=== PATIENT | female | born 1990 | race Asian ===

== ENCOUNTER → 2016-11-14 | Outpatient (CLI) | payer OTHER, SELFPAY ==
--- NOTE | 2016-11-14 10:51 | REP ---
Clinical: Abnormal breath sounds . Comparison: 12/27/2015 . Technique: PA and lateral. Findings: The mediastinum and cardiac silhouette are normal. The lung sargent are clear and without acute consolidation, effusion, or pneumothorax. The skeletal structures are intact and normal. Impression: 1. No acute cardiopulmonary process. Signed by Fernando Russell MD 11/14/2016 10:42 A
== END ==
LOC: M LRY 10:24
PROVIDERS: ATTEND Nurse Practitioner Family
DX: R09.89 Other specified symptoms and signs involving the circulatory and respiratory systems (principal)

== ENCOUNTER → 2016-11-14 | Outpatient (REF) | payer OTHER | LOC: M SFHCLERA 11:22 | PROVIDERS: ATTEND Nurse Practitioner Family | DX: J40 Bronchitis, not specified as acute or chronic (principal) ==

== ENCOUNTER → 2017-10-08 | Outpatient (CLI) | payer BC ==
[2017-10-08 17:41] LABS: BASO % 0.3 % (0.0-1.0); EOS # 0.3 10^3/uL (0.0-0.50); EOS % 2.6 % (0.0-3.0); HEMOGLOBIN 12.3 g/dl (12.0-16.0); IMMATURE GRANULOCYTE # 0.1 10^3/uL (0-0); IMMATURE GRANULOCYTE % 0.5 % (0-0); LYMPH # 2.8 10^3/uL (1.5-6.5); LYMPH % 21.5 % (24.0-44.0); MEAN CORPUSCULAR HEMOGLOBIN 29.2 pg (27.0-33.0); MEAN CORPUSCULAR HGB CONC 33.2 g/dl (32.0-36.5); MEAN CORPUSCULAR VOLUME 87.9 fl (80.0-96.0); MONO # 0.7 10^3/uL (0.0-0.8); MONO % 5.5 % (0.0-5.0); NEUTROPHILS # 9.1 10^3/uL (1.8-7.7); NEUTROPHILS % 69.6 % (36.0-66.0); PLATELET COUNT, AUTOMATED 305 10^3/uL (150-450); RED BLOOD COUNT 4.21 10^6/uL (4.00-5.40); RED CELL DISTRIBUTION WIDTH 13.1 % (11.5-14.5); WHITE BLOOD COUNT 13.1 10^3/uL (4.0-10.0)
[2017-10-08 18:19] LABS: AMPHETAMINES URINE REFLEX NEGATIVE (NEGATIVE); BARBITURATES URINE REFLEX NEGATIVE (NEGATIVE); BENZODIAZEPINES URINE REFLEX NEGATIVE (NEGATIVE); CANNABINOIDS URINE REFLEX NEGATIVE (NEGATIVE); COCAINE METABOLITE URINE REFLE NEGATIVE (NEGATIVE); METHADONE URINE REFLEX NEGATIVE (NEGATIVE); OPIATES URINE REFLEX NEGATIVE (NEGATIVE); PHENCYCLIDINE URINE REFLEX NEGATIVE (NEGATIVE)
[2017-10-08 19:35] LABS: CHLAMYDIA DNA AMPLIFICATION NEGATIVE (NEGATIVE); GC DNA AMPLIFICATION NEGATIVE (NEGATIVE)
[2017-10-10 10:11] LABS: HIV 1&2 SCREEN CENTAUR NEGATIVE (NEGATIVE)
[2017-10-10 13:59] LABS: HEPATITIS C VIRUS ABY INDEX 0.1 INDEX (<0.8)
[2017-10-10 14:50] LABS: RUBELLA IgG QUALITATIVE IMMUNE (IMMUNE)
[2017-10-10 14:51] LABS: HBsAg Prenatal NEGATIVE (NEGATIVE)
== END ==
LOC: M SMT 14:55
DX: Z36.89 Encounter for other specified antenatal screening (principal); Z3A.22 22 weeks gestation of pregnancy
CPT/HCPCS: 86762

== ENCOUNTER → 2017-11-20 | Outpatient (CLI) | payer BC ==
[2017-11-20 13:34] LABS: HEMATOCRIT 39.2 % (36.0-47.0); HEMOGLOBIN 12.7 g/dl (12.0-16.0); MEAN CORPUSCULAR HEMOGLOBIN 28.6 pg (27.0-33.0); MEAN CORPUSCULAR HGB CONC 32.4 g/dl (32.0-36.5); MEAN CORPUSCULAR VOLUME 88.3 fl (80.0-96.0); PLATELET COUNT, AUTOMATED 307 10^3/uL (150-450); RED BLOOD COUNT 4.44 10^6/uL (4.00-5.40); RED CELL DISTRIBUTION WIDTH 12.9 % (11.5-14.5); WHITE BLOOD COUNT 14.3 10^3/uL (4.0-10.0)
[2017-11-20 14:03] LABS: GLUCOSE CHALLENGE TEST 1 HOUR 75 MG/DL (LESS THAN 140)
== END ==
LOC: M SMT 09:30
DX: Z36.89 Encounter for other specified antenatal screening (principal); Z3A.00 Weeks of gestation of pregnancy not specified
CPT/HCPCS: 82950

== ENCOUNTER → 2018-01-23 | Outpatient (REF) | payer BC | LOC: M LAB REF 13:47 | DX: Z34.83 Encounter for supervision of other normal pregnancy, third trimester (principal) | CPT/HCPCS: 87081 ==

== ENCOUNTER 2018-02-11 15:12 | Inpatient (IN) | payer BC ==
[2018-02-11 17:53] LABS: HEMATOCRIT 41.5 % (36.0-47.0); HEMOGLOBIN 13.6 g/dl (12.0-15.5); MEAN CORPUSCULAR HEMOGLOBIN 27.2 pg (27.0-33.0); MEAN CORPUSCULAR HGB CONC 32.8 g/dl (32.0-36.5); PLATELET COUNT, AUTOMATED 365 10^3/uL (150-450); RED CELL DISTRIBUTION WIDTH 13.7 % (11.5-14.5); WHITE BLOOD COUNT 20.5 10^3/uL (4.0-10.0)
[2018-02-11] MEDS ORDERED: FENTANYL 2MCG/ML ROPIVACAINE 0.2% IN 0.9% NACL 200ML IVBAG As Ordered (20:33)
[2018-02-11] MEDS ORDERED: EPIDURAL COMMENT XX (21:45)
[2018-02-11] MEDS ORDERED: diphenhydrAMINE INJ 50MG/ML VIAL (J1200) IV (21:45)
[2018-02-11] MEDS ORDERED: ePHEDrine SULFATE 25 MG/5 ML(5MG/ML) SYRINGE IV (21:45)
[2018-02-11] MEDS ORDERED: FENTANYL/ROPIVACAINE/NACL BAG 200 ML EPIDURAL (21:45)
[2018-02-11] MEDS ORDERED: REFRIGERATOR IV KEYS XX (21:45)
[2018-02-11] MEDS ORDERED: LACTATED RINGER'S 1000 ML IV (21:45)
[2018-02-11] MEDS ORDERED: NALOXONE INJ 0.4 MG/1 ML VIAL (J2310) IV (21:45)
[2018-02-11] MEDS ORDERED: EPIDURAL/PCA KEYS XX (21:45)
[2018-02-11] MEDS ORDERED: OXYTOCIN DRIP 30 UNITS in APPROPRIATE DILUENT 1 EA IV (23:30)
[2018-02-12] MEDS: ONDANSETRON 4MG/2ML VIAL (J2405) IV (07:40)
[2018-02-12] MEDS ORDERED: LR 1,000 ML IV (11:55)
[2018-02-12] MEDS ORDERED: OXYTOCIN INJ 10 UNITS/ML VIAL (J2590) As Ordered ×2 (12:10)
[2018-02-12] MEDS ORDERED: MORPHINE PRES-FREE INJ 10 MG/10 ML VIAL (J2274) As Ordered (12:12)
[2018-02-12] MEDS ORDERED: LIDOCAINE PRES-FREE 2% 10ML AMP As Ordered ×2 (12:14→12:15)
[2018-02-12] MEDS ORDERED: EPINEPHrine INJ 1 MG/ML 1ML AMP As Ordered (12:15)
[2018-02-12] MEDS: BICITRA 30ML SOLN UDC PO (12:38)
[2018-02-12] MEDS ORDERED: PHENYLephrine HCL 500 MCG/5 ML (100MCG/ML) SYRINGE (J2370) As Ordered (13:17)
[2018-02-12] MEDS ORDERED: ONDANSETRON 4MG/2ML VIAL (J2405) As Ordered ×6 (13:18→13:50)
[2018-02-12] MEDS ORDERED: dexameTHASONE 4 MG/ML 1ML VIAL (J1100) As Ordered (13:18)
[2018-02-12] MEDS ORDERED: KETOROLAC 60 MG/2 ML VIAL (J1885) As Ordered (13:18)
[2018-02-12] MEDS ORDERED: NALBUPHINE HCL 10 MG/ML AMP (J2300) IV (13:30)
[2018-02-12] MEDS ORDERED: NALOXONE INJ 0.4 MG/1 ML VIAL (J2310) IV ×2 (13:30)
[2018-02-12] MEDS ORDERED: ONDANSETRON 4MG/2ML VIAL (J2405) IV ×3 (13:30→15:15)
[2018-02-12 13:48] LABS: CORD GAS ABE A -3.3; CORD GAS ABE V -2.9; CORD GAS HCO3 A 22.1 MEQ/L; CORD GAS HCO3 V 22.3 MEQ/L; CORD GAS O2 SAT A 74.4 %; CORD GAS O2 SAT V 74.7 %; CORD GAS PCO2 V 40.6 mmHg; CORD GAS PH A 7.349 UNITS; CORD GAS PH V 7.358 UNITS; CORD GAS PO2 A 32.2 mmHg; CORD GAS PO2 V 32.2 mmHg; CORD GAS SBC A 21.1 MEQ/L; CORD GAS SBC V 21.5 MEQ/L; CORD GAS TCO2 A 23.3 MEQ/L; CORD GAS TCO2 V 23.6 MEQ/L
[2018-02-12] MEDS: LR 1,000 ML IV ×2 (14:09→20:36)
[2018-02-12] MEDS ORDERED: MEASLES,MUMPS,RUBELLA VACCINE INJ (MMR-II) (90707) SC (14:15)
[2018-02-12] MEDS ORDERED: PERCOCET 5MG/325MG TAB PO ×2 (14:15)
[2018-02-12] MEDS ORDERED: RHOGAM 300 MCG (1500 IU) INJ (J2790) IM (14:15)
[2018-02-12] MEDS: METHYLERGONOVINE MALEATE 0.2 MG/ML VIAL (J2210) IM (14:30)
[2018-02-12] MEDS ORDERED: fentaNYL 100 MCG/2 ML INJECTION (J3010) IV (15:15)
[2018-02-12] MEDS ORDERED: diphenhydrAMINE INJ 50MG/ML VIAL (J1200) IV (15:15)
[2018-02-12] MEDS ORDERED: MEPERIDINE INJ 25 MG/ML VIAL (J2175) IV (15:15)
[2018-02-12] MEDS: PRENATAL VITAMINS CHEWABLE TABLET PO (15:40)
[2018-02-12] MEDS: METOCLOPRAMIDE INJ 10MG/2ML VIAL (J2765) IV (16:28)
[2018-02-12] MEDS: KETOROLAC 30 MG/ML VIAL (J1885) IV (18:47)
[2018-02-12] MEDS: PROMETHAZINE INJ 25 MG/ML VIAL (J2550) IV (20:36)
[2018-02-12] MEDS: DOCUSATE SODIUM 100 MG CAP PO (22:52)
[2018-02-13] MEDS: KETOROLAC 30 MG/ML VIAL (J1885) IV ×3 (02:20→14:14)
[2018-02-13] MEDS: LR 1,000 ML IV ×3 (04:38→22:09)
[2018-02-13 07:36] LABS: HEMATOCRIT 29.1 % (36.0-47.0); HEMOGLOBIN 9.2 g/dl (12.0-15.5); MEAN CORPUSCULAR HEMOGLOBIN 26.7 pg (27.0-33.0); MEAN CORPUSCULAR HGB CONC 31.6 g/dl (32.0-36.5); MEAN CORPUSCULAR VOLUME 84.6 fl (80.0-96.0); PLATELET COUNT, AUTOMATED 262 10^3/uL (150-450); RED BLOOD COUNT 3.44 10^6/uL (4.00-5.40); RED CELL DISTRIBUTION WIDTH 13.8 % (11.5-14.5); WHITE BLOOD COUNT 27.2 10^3/uL (4.0-10.0)
[2018-02-13] MEDS: PRENATAL VITAMINS CHEWABLE TABLET PO (09:00)
[2018-02-13] MEDS: IBUPROFEN 800 MG TAB PO (21:00)
[2018-02-14] MEDS: IBUPROFEN 800 MG TAB PO (05:00)
[2018-02-14] MEDS: LR 1,000 ML IV (05:23)
== END 2018-02-14 10:40 | disposition home or self-care (01) | DRG 540 ==
LOC: M LDO 15:12 → M LDI 16:52 → M OBS 02-12 15:30
PROVIDERS: Obstetrics & Gynecology
PROC: 10D00Z1 Extraction of Products of Conception, Low, Open Approach (ICD-10-PCS; principal; 2018-02-12 12:44)
DX: O48.0 Post-term pregnancy (principal); O62.0 Primary inadequate contractions; Z37.0 Single live birth; Z3A.40 40 weeks gestation of pregnancy

== ENCOUNTER 2019-11-22 09:29 | Emergency (ER) | payer BC, SELFPAY ==
[~2019-11-22] VITALS: Ht 157.5 cm; Wt 69.5 kg
[~2019-11-22 09:29] MED LIST: COLA100C5 PO; IBUP80TA PO; OXYC1TAB23 PO; PRENTAB9 PO
[2019-11-22] MEDS ORDERED: ACETAMINOPHEN 500 MG TAB PO ONE (10:00)
[2019-11-22] MEDS ORDERED: IBUP-1022 PO (10:57)
--- NOTE | 2019-11-22 10:57 | REP ---
Head CT without contrast: History: 1 month history of headache. Comparison study: No comparison study. CT findings: Bone window settings demonstrate an intact bony calvarium. There is no evidence of skull fracture or incidental bony calvarial lesion. The visualized paranasal sinuses appear clear. No intraorbital abnormality is seen. On soft tissue window setting images; the lateral, third, and fourth ventricles are normal in size and position. Reed-white differentiation pattern is normal above and below the tentorium. There are is no evidence of intracranial hemorrhage. No mass, edema, infarction, or midline shift is seen. No extra-axial fluid collection is appreciated. Impression: Negative noncontrast head CT. Electronically Signed by Calixto Horne MD 11/22/2019 10:55 A
[2019-11-22] MEDS ORDERED: ZOFR4TAB16 PO (10:58)
[2019-11-22 11:05] VITALS: BP 138/79
== END 2019-11-22 11:07 | disposition home or self-care (01) ==
LOC: M ED 09:29
DX: R51 Headache (principal); J30.2 Other seasonal allergic rhinitis

== ENCOUNTER 2019-12-23 08:20 | Emergency (ER) | payer BC, SELFPAY ==
[~2019-12-23] VITALS: Ht 157.5 cm; Wt 69.6 kg
[~2019-12-23 08:20] MED LIST changes: +IBUP-1022 PO; +ZOFR4TAB16 PO
--- NOTE | 2019-12-23 09:40 | REP ---
CHEST, SINGLE VIEW: There is no evidence of acute infiltrate. No pleural effusion is seen. The heart is normal in size. The mediastinal silhouette is unremarkable. The visualized osseous structures are intact. IMPRESSION: No acute pulmonary disease. Electronically Signed by Louis Reed MD 12/23/2019 10:13 A
[2019-12-23 10:28] VITALS: BP 132/95
[2019-12-23] MEDS ORDERED: FLUTISP NARES (10:34)
== END 2019-12-23 10:47 | disposition home or self-care (01) ==
LOC: M ED 08:20
DX: J32.9 Chronic sinusitis, unspecified (principal)

== ENCOUNTER → 2020-11-28 | Outpatient (CLI) | payer BC, SELFPAY ==
[~2020-11-28] MED LIST changes: +FLUTISP NARES
--- NOTE | 2020-11-28 12:47 | REP ---
INDICATION: N63.10 LUMP OF RT BREAST. Patient reports palpable lump times several days in the 2 o'clock region of the right breast. COMPARISON: No comparison breast imaging.. TECHNIQUE: Targeted right breast sonography with Doppler. FINDINGS: Sonographic scanning of the site of the palpable lump demonstrates an irregular spiculated spherical hypoechoic mass in the 2 o'clock position of the right breast located 13 cm from the nipple. There are a few focal hyperechoic foci within the lesion which may reflect calcifications. Blood flow is seen peripherally. The lesion measures 2.0 x 1.7 x 1.7 cm and must be considered suspicious. It has irregular spiculated margins. There is some enhanced through transmission and no acoustic shadowing. IMPRESSION: BI-RADS category 4 suspicious right breast ultrasound. Ultrasound-guided needle biopsy of the right breast is recommended with marker clip placement and post clip placement mammography. <Electronically signed by Keegan Horne > 11/28/20 [id number]
== END ==
LOC: M WHC 11:56
PROVIDERS: ATTEND Nurse Practitioner Family
DX: N63.12 Unspecified lump in the right breast, upper inner quadrant (principal)

== ENCOUNTER → 2020-12-20 | Outpatient (CLI) | payer SELFPAY ==
[~2020-12-20] MED LIST changes: +BENA25CA4 PO; +CETI10CA2 PO; +EVEN10003 PO
[2020-12-20 15:27] VITALS: BP 110/78
--- NOTE | 2020-12-20 17:14 | REP ---
INDICATION: N63.10 LUMP RT BREAST,US GUIDED BIOPSY. COMPARISON: 11/28/2020. TECHNIQUE: Real-time sonographic evaluation of right breast performed. FINDINGS: Ultrasound guidance was provided for Dr. Cash who performed ultrasound-guided biopsy of the solid nodule 2 o'clock right breast. The needle is seen within the nodule. IMPRESSION: Ultrasound guidance was provided for Dr. Cash who performed ultrasound-guided biopsy of the solid nodule 2 o'clock right breast. RECOMMENDATION: Clinical follow-up. <Electronically signed by Louis Reed > 12/20/20 2001
--- NOTE | 2020-12-23 18:34 | ROOPDOC ---
[facility] Report Of Operation Report of Operation DATE OF PROCEDURE: 12/20/20 DIAGNOSIS: right breast suspicious lesion PROCEDURE: ultrasound guided biopsy of the right breast suspicious lesion with clip placement SURGEON: Magdi Peace BLOOD LOSS: minimal COMPLICATIONS: none Lidocaine 1% LOT [id number] Expiration 08/2021 Sodium Bicarbonate 8.4% LOT [id number] Expiration 10/2021 Hydromark clip LOT [id number] Expiration 07/2023 SHAPE : 3 Bx device: BARD [id number] x10 cm LOT [id number] Expiration 09/2021 Informed consent was obtained. The most common risk and possible complications including bleeding, hematoma, bruising, infection, injury to surrounding structures were explained to the patient and the patient expressed understanding. Patient was placed on the bed in the supine position. Appropriate time out was done stating patients name, date of , and the procedure to be performed. The Right breast was prepped and draped in the usual fashion. The ultrasound was used to confirm the location of the lesion in the right breast at 3:00 peristernal. This finding was confirmed with palpation of the mass. Plain Lidocaine 1% and 8.4% sodium bicarbonate 10:1 mix was used to anesthetize the skin, the biopsy site and tissues along the anticipated biopsy tract. Small skin incision was made with blade number 11. BARD Marquee 14G cannula with introducer ([id number]) was inserted through the incision and advanced under the ultrasound guidance to position immediately adjacent to the lesion. Next, the introducer was removed and BARD Marquee 14G biopsy device was places in the cannula. Pre-biopsy imaging, and post-biopsy imaging were captured. Five good core biopsies were taken at various levels of the lesion. Specimen was placed in formaldehyde, labeled with appropriate biopsy site and patients name, and sent to pathology for evaluation. Next, the biopsy device was withdrawn and a clip introducer was inserted into the biopsy site via the cannula. SHAPE 3 Hydromark clip was deployed under sonographic guidance. Post-clip placement image was captured. Manual pressure over the biopsy cavity and tract was held after the clip introducer was withdrawn. No bleeding was noted upon removal of the pressure. Post-biopsy mammogram was not done due to patients young age and visibility of the clip on sonography. Postprocedural dressing was placed. Patient tolerated procedure well. Discharge instructions were discussed with the patient and the patient expressed understanding. MAGDI PEACE DO Dec 23, 2020 18:34
== END ==
LOC: M WHCPRO 08:52
PROVIDERS: ATTEND Surgery
DX: C50.211 Malignant neoplasm of upper-inner quadrant of right female breast (principal)

== ENCOUNTER → 2020-12-28 | Outpatient (CLI) | payer SELFPAY ==
--- NOTE | 2021-01-09 15:20 | REPMRS ---
Patient History Patient has history of cancer in the right breast at age 30. Family history of breast cancer in paternal grandmother. Malignant US guided breast biopsy. of the right breast, December 20, 2020. Taking hormonal contraceptives. Indicated problem(s): right breast lump or thickening 2 cm for 1 months. Scanned whole right breast. 200 Prev bx (+ cancer) hypoechoic area - 2.2 x 1.8 x 1.9 cm. Clip seen. 2 nodes seen in right axilla. 1 - 2.3 x 1.0 x 1.2 cm 2 - 2.8 x 1.2 x 1.7 cm Diagnostic Bilateral Mammo: December 28, 2020 - Exam #: [id number] Bilateral MLO and CC view(s) were taken. Technologist: Emilia Cesar, Technologist FINDINGS: The breast tissue is heterogeneously dense. This may lower the sensitivity of mammography. Assessment: BI-RADS/ACR category 6 mammogram. Known Biopsy Proven Malignancy Recommendation Needle biopsy of the right breast. Electronically Signed By: Louis Reed MD 01/09/21 0549
== END ==
LOC: M WHC 15:27
PROVIDERS: ATTEND Surgery
DX: C50.919 Malignant neoplasm of unspecified site of unspecified female breast (principal)
CPT/HCPCS: 77066; G0279

== ENCOUNTER → 2020-12-29 | Outpatient (CLI) | payer SELFPAY | LOC: M WHC 09:09 | PROVIDERS: ATTEND Surgery | DX: C50.919 Malignant neoplasm of unspecified site of unspecified female breast (principal) ==

== ENCOUNTER → 2021-01-10 | Outpatient (CLI) | payer MEDICAID | LOC: M PLALAB 12:05 | PROVIDERS: ATTEND Surgery | DX: Z13.79 Encounter for other screening for genetic and chromosomal anomalies (principal) ==

== ENCOUNTER → 2021-01-16 | Outpatient (CLI) | payer MEDICAID ==
[~2021-01-16] MED LIST changes: +IBUP200C25 PO
--- NOTE | 2021-01-16 14:01 | REP ---
INDICATION: INITIAL STAGING CARCINOMA. Right breast carcinoma. Infiltrating ductal carcinoma on recent right breast biopsy. COMPARISON: Comparison breast sonography November 28, 2020. Comparison mammography December 28, 2020.. TECHNIQUE: 1 hour 16 minutes following the intravenous injection of a 17.06 mCi dose of F-18 FDG, three-dimensional PET scintigraphy is acquired from the skull base to the proximal thighs. Triplanar noncontrast CT scanning is acquired through the same anatomic range for attenuation correction, and image registration with scan parameters optimized to minimize radiation exposure to the patient. PET scintigraphy and CT datasets were fused and displayed on a workstation with multiplanar and projection display capability. FINDINGS: Head and neck soft tissues are unremarkable. There is no abnormal hypermetabolic uptake within the thorax. No pulmonary parenchymal nodule or hilar or mediastinal lymphadenopathy is seen. The biopsy positive right breast mass is noted in the far medial aspect of the right breast parasternal and location. Maximum standard uptake value within this lesion is 8.43. There is no evidence of internal mammary or axillary paulino hypermetabolic uptake or adenopathy. No other abnormal uptake is seen within the breast soft tissues on either side. In the abdomen and pelvis there is no abnormal hypermetabolic uptake. No abnormal skeletal uptake is seen. IMPRESSION: The biopsy-proven malignant breast mass in the medial aspect of the right breast is hypermetabolic. On CT images, this lesion abuts the chest wall soft tissues but there is no evidence of chest wall asymmetry or enlargement. The lesion measures 2.3 cm in greatest diameter. No other abnormal hypermetabolic uptake is seen. <Electronically signed by Keegan Horne > 01/16/21 [id number]
== END ==
LOC: M PLARAD 10:52
PROVIDERS: ATTEND Surgery
DX: C50.919 Malignant neoplasm of unspecified site of unspecified female breast (principal)

== ENCOUNTER → 2021-01-17 | Outpatient (CLI) | payer MEDICAID ==
[2021-01-17 14:18] VITALS: BP 116/82
--- NOTE | 2021-01-17 14:34 | REP ---
INDICATION: R92.8 ABN MAMMO RT BREAST,POST STEREOTACTIC BIOPSY. COMPARISON: 12/28/2020. TECHNIQUE: ML and CC views right breast performed following stereotactic biopsy of a nodule in the upper outer quadrant posteriorly. FINDINGS: Biopsy clip is seen at the site of the nodule in the upper outer quadrant of the right breast. IMPRESSION: Successful stereotactic biopsy of nodule upper-outer quadrant right breast. RECOMMENDATION: Clinical follow-up. <Electronically signed by Louis Reed > 01/17/21 [id number]
--- NOTE | 2021-01-18 15:55 | REP ---
INDICATION: R92.8 ABN MAMMO RT BREAST,STEREOTACTIC BIOPSY. COMPARISON: None. TECHNIQUE: The procedure was performed under the direct supervision of Dr. Reed. Patient has a history of a 11 x 7 mm oval smoothly marginated nodule in the posterior upper outer quadrant of the right breast seen on a previous mammogram dated 12/28/2020. The risks and benefits of the procedure were explained to the patient and informed consent was obtained. A craniocaudal approach was utilized. The nodule was localized using stereotactic mammographic guidance. 1% Xylocaine was used as a local anesthetic. An 10 gauge, suction assisted Mammotome needle was inserted and 6 core biopsy samples were obtained. A marker clip (HydroMARK shape 1) was placed at the biopsy site. The patient tolerated the procedure well and there were no immediate complications. After the appropriate amount of monitored convalescence, the patient was discharged from the department. FINDINGS: None IMPRESSION: Stereotactic right breast biopsy with marker clip placement (HydroMARK shape 1) <Electronically signed by Tristan Hernández > 01/18/21 9047 <Electronically signed by Louis Reed > 01/18/21 [id number]
== END ==
LOC: M WHCPRO 06:34
PROVIDERS: ATTEND Surgery
DX: R92.8 Other abnormal and inconclusive findings on diagnostic imaging of breast (principal)

== ENCOUNTER → 2021-01-25 | Outpatient (CLI) | payer MEDICAID ==
--- NOTE | 2021-01-25 14:57 | ECHO ---
DATE OF PROCEDURE: 01/25/2021 Age: 30 Gender: Female Height: 62 inches Weight: 170 pounds Body Surface Area: 1.78 m2 PATIENT LOCATION: Outpatient. REFERRING PHYSICIAN: Ambreen Tello. INDICATION: Breast cancer potentially cardiotoxic chemotherapy. MEASUREMENTS: 2D Measurements: RV 3.3 cm LV 4.4 cm Septum 0.8 cm Posterior wall 0.8 cm Aortic Root 3.0 cm LA - 3.2 cm LVEF 65% Doppler Measurements: AV 1.1 m/s LVOT 0.8 m/s LVOT diameter 2.0 cm MV-E 63, A 45, EA ratio 1.4 Early mitral deceleration time 150 msec E prime medial 11, A prime medial 7, E prime lateral 13.8 PV - 0.8 m/s Pulmonary artery acceleration time 144 msec PASP 18 mmHg IVC - 1.7 cm COMMENTS: Normal sinus rhythm without intraventricular conduction disturbance. M-mode and 2-dimensional echocardiography was performed with pulse, continuous wave, color flow, and tissue Doppler studies. Normal left ventricular size, wall thickness, and wall motion. Normal left atrial size and Doppler assessment of LV diastolic function and estimated mean left atrial pressure. Normal right heart chamber sizes and motion and estimated pulmonary arterial pressure. Normal IVC size and collapse against an elevated central venous pressure. Normal aortic dimensions. Normal appearing and functioning aortic valve. Normal appearing mitral valvular apparatus with normal leaflet excursion and no posterior systolic buckling. No apparent insufficiency. Normal appearing tricuspid valve with very mild insufficiency (physiologic). No apparent intracardiac mass or pericardial effusion. MTDD
== END ==
LOC: M CARPUL 08:13
PROVIDERS: ATTEND Internal Medicine Hematology & Oncology
DX: C50.919 Malignant neoplasm of unspecified site of unspecified female breast (principal)

== ENCOUNTER → 2021-02-02 | Outpatient (CLI) | payer MEDICAID ==
[~2021-02-02] MED LIST changes: +DEXA4TA PO; +PROC10TA4 PO; +PROHANCE 279.3MG/ML 15ML VIAL As Ordered ONE
--- NOTE | 2021-02-02 18:59 | REP ---
INDICATION: DUCTAL CA RT BREAST. COMPARISON: Mammogram 12/28/2020 and ultrasound 12/29/2020. TECHNIQUE: Three Rosa MRI imaging was performed with a dedicated breast coil. Axial, coronal, and sagittal T1 and T2 weighted scans were obtained with and without fat saturation in the usual fashion. The study includes dynamically acquired post gadolinium-enhanced imaging with image subtraction. Maximum intensity projection and multi planar reformation imaging is included as well. This study is interpreted with the aid of [employer], an FDA approved computer aided detection (CAD) software program, on a dedicated breast MRI workstation. The gadolinium enhancement dose is 15 mL of intravenous ProHance. FINDINGS: Moderate fibroglandular tissue is present bilaterally. Multiple nonenlarged axillary lymph nodes are visualized bilaterally. There is a biopsy clip at the site of a benign intramammary lymph node in the upper-outer quadrant of the right breast. No significant cystic change is seen in either breast. Moderate background parenchymal enhancement is seen bilaterally. A biopsy clip is seen within the known malignant mass in the lower inner right breast far posteriorly. This measures approximately 2.4 cm in diameter. It has irregular margins and suspicious internal enhancement. It lies along the surface of the pectoralis major muscle but does not appear to invade it. In the left retroareolar region, slightly below and medial to the left nipple, approximately 3 cm from the nipple, there is a nodule approximately 6 mm in diameter with suspicious internal enhancement. The margins appear irregular and somewhat spiculated. IMPRESSION: BI-RADS category 6 known right breast cancer. The known right breast cancer is visualized in the very posterior lower inner right breast as discussed above and measures approximately 2.4 cm in diameter. It lies along the surface of the pectoralis major muscle but does not appear to invade it. BI-RADS category 4, suspicious MRI left breast. In the left retroareolar region approximately 3 cm from the nipple, slightly inferior and medial to the nipple there is a suspicious 6 mm spiculated nodule. Recommend second-look ultrasound of the left breast to identify this nodule for ultrasound-guided biopsy. <Electronically signed by Louis Reed > 02/02/21 1250
== END ==
LOC: M RAD 15:36
PROVIDERS: ATTEND Surgery
DX: C50.919 Malignant neoplasm of unspecified site of unspecified female breast (principal); Z98.890 Other specified postprocedural states
CPT/HCPCS: A9576; C8908

== ENCOUNTER → 2021-02-07 | Outpatient (CLI) | payer MEDICAID ==
[~2021-02-07] MED LIST changes: +LIDOCAINE 1% MDV 20ML VIAL As Ordered ONE; +MIDAZOLAM INJ 2MG/2ML VIAL (J2250 PER 1MG) As Ordered ONE; -PROHANCE 279.3MG/ML 15ML VIAL As Ordered ONE; +ceFAZolin 1GM VIAL (J0690 PER 500MG) As Ordered ONE; +diphenhydrAMINE 50MG/ML VIAL (J1200) As Ordered ONE; +fentaNYL 100 MCG/2 ML INJECTION (J3010) As Ordered ONE
--- NOTE | 2021-02-07 13:57 | REP ---
INDICATION: ABN IMAGING OF LT BREAST\IR APPT AFTER, CHECKING IN NOW. COMPARISON: MRI 02/02/2021. TECHNIQUE: Real-time sonographic evaluation of left breast performed. FINDINGS: At the 9 o'clock position of the left breast, approximately 3 cm from the nipple, there is a 6 mm hypoechoic nodule with irregular margins corresponding to the suspicious nodule on the MRI. IMPRESSION: BIRADS/ACR category 4, suspicious 6 mm nodule 9 o'clock left breast. Recommend ultrasound-guided biopsy. RECOMMENDATION: Recommend ultrasound-guided biopsy 6 mm nodule 9 o'clock left breast. <Electronically signed by Louis Reed > 02/07/21 [id number]
== END ==
LOC: M RAD 11:40
PROVIDERS: ATTEND Surgery
DX: R92.8 Other abnormal and inconclusive findings on diagnostic imaging of breast (principal); N63.25 Unspecified lump in the left breast, overlapping quadrants
CPT/HCPCS: 76642; J0690; J1200; J1642; J1644; J2250; J3010

== ENCOUNTER → 2021-02-07 | Outpatient (CLI) | payer MEDICAID ==
[~2021-02-07] MED LIST changes: -LIDOCAINE 1% MDV 20ML VIAL As Ordered ONE; -MIDAZOLAM INJ 2MG/2ML VIAL (J2250 PER 1MG) As Ordered ONE; -ceFAZolin 1GM VIAL (J0690 PER 500MG) As Ordered ONE; -diphenhydrAMINE 50MG/ML VIAL (J1200) As Ordered ONE; -fentaNYL 100 MCG/2 ML INJECTION (J3010) As Ordered ONE
[2021-02-07 16:40] VITALS: BP 114/72
--- NOTE | 2021-02-08 09:57 | IRHP ---
[facility] IR Pre-Procedure H & P General Date of Service: February 07, 2021 Procedure: Same Day Surgery Interval History and Physical I have seen the patient and reviewed last H & P performed within 30 days. There is no significant interval change. History of Present Illness Chief Complaint The patient is a 30-year-old female admitted with a reason for visit of Breast Ca. PRE-PROCEDURE DIAGNOSIS: Right-sided breast cancer HEART: Normal rate. LUNGS: Normal breathing at rest. ASA Classification ASA Classification: II-Mild systemic disease Mallampati Score: II NPO: Yes Problems with prior sedation: No Obstructive Sleep Apnea: No Plan moderate sedation Allergies Coded Allergies: SEASONAL ALLERGIES (Verified Adverse Reaction, Intermediate, CONGESTION, 01/17/21) Home Medications Scheduled Dexamethasone (Dexamethasone), 4 TAB PO BID Diphenhydramine HCl (Benadryl), 25 MG PO QPM, (Reported) Scheduled PRN Prochlorperazine Maleate (Prochlorperazine Maleate), 10 MG PO Q4HP PRN for NAUSEA OR VOMITING Miscellaneous Medications Cetirizine HCl (ZyrTEC), 10 MG PO, (Reported) VS, I&O, 24H, Fishbone Vital Signs/I&O Vital Signs Date Time Temp Pulse Resp B/P (MAP) Pulse Ox O2 Delivery O2 Flow Rate FiO2 02/07/21 16:40 80 18 98 Room Air 02/07/21 14:44 2.0 02/07/21 12:42 98.0 HERMINIA NARVAEZ MD February 08, 2021 09:57
--- NOTE | 2021-02-12 13:46 | IRPON ---
IR Postoperative Note Date Of Procedure: February 07, 2021 Time Of Procedure: 16:00 IR Postoperative Note IR Ultrasound and fluoroscopy guided port placement. IR Ultrasound of the neck. IR Moderate sedation. Clinical indication: Right-sided breast cancer. Physician: Dr. Yusuf. Procedure: The patient was advised of the benefits, risks, and alternatives of the procedure and informed consent was obtained. A time-out was performed with verification of the patient's name, MRN, site of procedure and type of procedure to be performed. The patient was positioned in the supine position on the angiographic table. The site was prepped and draped in the usual sterile fashion. Moderate sedation was performed by the physician including the presence of an independent trained RN who assisted and monitored the patient's level of consciousness and physiologic status. Following the administration of fentanyl and Versed , the physician spent 45 minutes of continuous face to face time with the patient. Ultrasound of the neck reveals a patent and compressible left internal jugular vein. A apartment rental clerk radiograph reveals no gross abnormality. The neck and anterior chest wall were anesthetized with lidocaine. The left internal jugular vein was accessed using a microintroducer needle under ultrasound guidance, via a lateral approach. An 018 wire was advanced into the superior vena cava, the needle was removed and a microsheath was placed. An Amplatz wire was then passed into the inferior vena cava. An incision at the internal jugular vein access site and anterior chest wall were made using a scalpel. An incision was made at the anterior chest wall. A small pocket was created using a combination of blunt and sharp dissection. A tunneling device was then used to pass the catheter from the pocket to the neck puncture site. An 8- [place] [employer] Smart power port was then positioned in the pocket. The catheter was then measured and cut. The introducer sheath was exchanged for a peel-away sheath. The catheter was passed through the peel-away sheath into the internal jugular vein and the peel-away sheath was removed. The port tip was positioned at the cavoatrial junction. The port was then accessed with a Milligan needle. The port flushes and aspirates well. The puncture site in the neck was closed. The chest wall incision was then closed with 2-0 Vicryl and 4-0 Monocryl. Glue and Steri- Strips were applied. A sterile dressing was then applied. The patient tolerated the procedure well and was returned to the PRU in stable condition. Estimated blood loss: <5 ml. Complications: None. Conclusion: 1. Successful placement of an 8-[place] [employer] Smart power port via the left internal jugular vein. The port is ready for immediate use. 2. Patient to follow up in IR clinic in 2 weeks. Thank you for this referral. HERMINIA YUSUF MD February 12, 2021 13:46
== END ==
LOC: M IRPRO 11:45
PROVIDERS: ATTEND Radiology Diagnostic Radiology
DX: D05.10 Intraductal carcinoma in situ of unspecified breast (principal); J30.89 Other allergic rhinitis
CPT/HCPCS: 36561; 99152; 99153; C1769; C1788; C1894

== ENCOUNTER → 2021-02-09 | Outpatient (CLI) | payer MEDICAID ==
[2021-02-09 13:14] VITALS: BP 112/86
--- NOTE | 2021-02-09 13:35 | REP ---
INDICATION: R92.8 ABN MRI/LEFT BREAST/US GUIDED/CK CLIP PLACEMENT. COMPARISON: Comparison mammography December 28, 2020. TECHNIQUE: Mediolateral and craniocaudal views of the left breast are obtained. FINDINGS: Scattered fibroglandular elements are seen. There is a needle biopsy marker clip in the anterior 3rd of the left breast medially at approximately the 9 o'clock position. There is no evidence of hematoma. IMPRESSION: Marker clip in the 9 o'clock position anterior 3rd left breast. <Electronically signed by Keegan Horne > 02/09/21 [id number]
--- NOTE | 2021-02-09 15:01 | REP ---
INDICATION: R92.8 ABN MRI/LEFT BREAST/US GUIDED BX. COMPARISON: Comparison is made with sonography from February 07, 2021.. TECHNIQUE: Sonographic guidance. FINDINGS: Sonographic guidance is provided to Dr. Cash performed a ultrasound-guided needle biopsy of the 6 mm nodule identified on second-look sonography February 07, 2021. Marker clip placement. IMPRESSION: Sonographic guidance. <Electronically signed by Keegan Horne > 02/09/21 0505
--- NOTE | 2021-02-11 15:11 | ROOPDOC ---
[facility] Report Of Operation Report of Operation DATE OF PROCEDURE: 02/09/21 DIAGNOSIS: left breast suspicious lesion seen on Left breast MRI with sonographic correlate seen at 9:00 3CFN PROCEDURE: ultrasound guided biopsy of the left breast suspicious lesion seen on Left breast MRI with sonographic correlate seen at 9:00 3CFN SURGEON: Dr. Magdi Peace ASSOCIATE PROFESSOR OF MATHEMATICS: Dr. Calixto Horne BLOOD LOSS: minimal COMPLICATIONS: none Lidocaine 1% LOT [id number] Expiration 03/2024 Sodium Bicarbonate 8.4% LOT [id number] Expiration 10/2021 Hydromark clip LOT [id number] Expiration 08/2023 SHAPE: 4 Bx device: BARD [id number] x10 cm LOT [id number] Expiration 10/2023 Informed consent was obtained. The most common risk and possible complications including bleeding, hematoma, bruising, infection, injury to surrounding structures were explained to the patient and the patient expressed understanding. Patient was placed on the bed in the supine position. Appropriate time out was done stating patients name, date of , and the procedure to be performed. The left breast was prepped and draped in the usual fashion. The ultrasound was used to confirm the location of the lesion in the left breast at 9:00 3 centimeters from the nipple. Dr Horne from Radiology came into the room and confirmed location of the second look ultrasound left breast lesion corresponding with MRI abnormality. Plain Lidocaine 1% and 8.4% sodium bicarbonate 10:1 mix was used to anesthetize the skin, the biopsy site and tissues along the anticipated biopsy tract. Small skin incision was made with blade number 11. BARD Marquee 14G cannula with in troducer ([id number]) was inserted through the incision and advanced under the ultrasound guidance to position immediately adjacent to the lesion. Next, the introducer was removed and BARD Marquee 14G biopsy device was places in the cannula. Pre-biopsy imaging, and post-biopsy imaging were captured. Five good core biopsies were taken at various levels of the lesion. Specimen was placed in formaldehyde, labeled with appropriate biopsy site and patients name, and sent to pathology for evaluation. Next, the biopsy device was withdrawn and a clip introducer was inserted into the biopsy site via the cannula. SHAPE 4 Hydromark clip was deployed under sonographic guidance. Post-clip placement image was captured. Manual pressure over the biopsy cavity and tract was held after the clip introducer was withdrawn. No bleeding was noted upon removal of the pressure. Post-biopsy mammogram of the left breast was obtained and showed clip in expected position. Postprocedural dressing was placed. Patient tolerated procedure well. Discharge instructions were discussed with the patient and the patient expressed understanding. MAGDI PEACE DO February 11, 2021 15:11
== END ==
LOC: M WHCPRO 06:25
PROVIDERS: ATTEND Surgery
DX: D24.2 Benign neoplasm of left breast (principal)
CPT/HCPCS: 19083; 77065; 88305; G0279

== ENCOUNTER 2021-02-22 20:25 | Emergency (ER) | payer MEDICAID ==
[2021-02-22] MEDS ORDERED: NS 1,000 ML IV ONE (21:40)
[2021-02-22] MEDS: METOCLOPRAMIDE INJ 10MG/2ML VIAL (J2765 PER 1) IV ONE (21:40)
[2021-02-22] MEDS ORDERED: REGL10TA6 PO (23:05)
[2021-02-22 23:15] VITALS: BP 122/71
[2021-02-23] MEDS ORDERED: ONDA-83 PO (09:17)
== END 2021-02-22 23:26 | disposition home or self-care (01) ==
LOC: M ED 20:25
DX: R11.2 Nausea with vomiting, unspecified (principal); R00.2 Palpitations; T45.1X5A Adverse effect of antineoplastic and immunosuppressive drugs, initial encounter; X58.XXXA Exposure to other specified factors, initial encounter; Y92.89 Other specified places as the place of occurrence of the external cause; C50.919 Malignant neoplasm of unspecified site of unspecified female breast; J45.909 Unspecified asthma, uncomplicated; Z79.899 Other long term (current) drug therapy

== ENCOUNTER → 2021-02-27 | Outpatient (POV) | payer MEDICAID ==
[~2021-02-27] VITALS: Ht 157.5 cm; Wt 77.3 kg
[~2021-02-27] MED LIST changes: +ONDA-83 PO; +REGL10TA6 PO
[2021-02-27 11:19] VITALS: BP 115/72
--- NOTE | 2021-02-28 13:05 | IRPN ---
[facility] IR Progress Note IR Progress Note DATE: Feb 27, 2021 FOLLOW-UP: Patient is status post port placement. Patient states she is doing well. No fevers, chills, pain at site or discharge from site. Port was used without any issues. ON EXAMINATION: Port site appears to be healing well. No redness, swelling or discharge. IMPRESSION: Doing well status post port placement. No further follow-up scheduled unless initiated by patient and/or referring provider. Thank you for this referral Allergies Coded Allergies: SEASONAL ALLERGIES (Verified Adverse Reaction, Intermediate, CONGESTION, 02/09/21) VS,Fishbone, I+O VS, Fishbone, I+O Vital Signs Date Time Temp Pulse Resp B/P (MAP) Pulse Ox O2 Delivery O2 Flow Rate FiO2 02/27/21 11:19 97.5 98 16 115/72 (86) 96 Room Air HERMINIA NARVAEZ MD Feb 28, 2021 13:05
== END ==
LOC: M TMIRPOV 10:49
PROVIDERS: ATTEND Radiology Diagnostic Radiology
DX: Z45.2 Encounter for adjustment and management of vascular access device (principal)

== ENCOUNTER → 2021-05-11 | Outpatient (CLI) | payer MEDICAID ==
[~2021-05-11] MED LIST changes: +CIPR-249 PO; +METR375C3 PO
--- NOTE | 2021-05-11 15:17 | REP ---
INDICATION: CHEST XR COMPARISON: 12/23/2019 TECHNIQUE: PA and lateral. FINDINGS: The mediastinum and cardiac silhouette are normal. Daiihw-Q-Smvg with tip in the SVC. The lung sargent are clear and without acute consolidation, effusion, or pneumothorax. The skeletal structures are intact and normal. IMPRESSION: No acute cardiopulmonary process. <Electronically signed by Fernando Russell > 05/11/21 [id number]
== END ==
LOC: M PLAIMG 14:47
PROVIDERS: ATTEND Internal Medicine Hematology & Oncology
DX: J45.909 Unspecified asthma, uncomplicated (principal)

== ENCOUNTER → 2021-05-18 | Outpatient (CLI) | payer MEDICAID ==
[~2021-05-18] MED LIST changes: +AUGM875T28 PO; +AZIT-12 PO; +BENZ150C2 PO; +PROAAER10 INH
--- NOTE | 2021-05-18 14:36 | ECHO ---
ECHOCARDIOGRAM DATE OF PROCEDURE: 05/18/2021 Age: Gender: Height: 157 cm Weight: 78 kg REFERRING PHYSICIAN: Dr. Hector Tello. INDICATION: Chemotherapy drugs that may affect the heart, breast cancer. MEASUREMENTS: 2D Measurements: LVOT 2.1 cm Left ventricle diastole 4.8 cm Left ventricle systole 4.1 cm Interventricular septum 0.94 cm Posterior wall 0.84 cm Aortic root 2.7 cm Left atrium 2.7 cm Left atrium volume index 22 cm Proximal ascending aorta 2.3 cm Doppler Measurements: No aortic stenosis or regurgitation Aortic valve velocity 91.8 cm/s LVOT velocity 62.9 cm/s LVOT VTI 10.4 cm No mitral regurgitation No mitral stenosis Trace tricuspid regurgitation No pulmonic regurgitation Pulmonary artery systolic pressure 25 mmHg DESCRIPTION: Rhythm was sinus tachycardia. Image quality was fair. This was a 2D, M-mode, color flow Doppler, and pulsed wave Doppler examination including mitral annular tissue Doppler. CONCLUSIONS: 1. Normal left ventricle size at end-diastole with normal LV wall thickness. Mildly dilated left ventricle end-systolic dimension. Severe hypokinesis of the interventricular septum with mild global LV hypokinesis elsewhere. Severe reduction in overall LV systolic function. LVEF 30% by visual assessment. 2. Normal right ventricle size and systolic function. Suggestive of normal pulmonary artery systolic pressure and CVP. 3. No pericardial effusion. 4. Nonspecific thickening of the anterior mitral leaflet. No mitral regurgitation. ADDITIONAL COMMENTS AND RECOMMENDATIONS: Suggest referral to a shoe repairer helper. If no contraindication, recommend addition of systolic heart failure approved beta-zaki such as metoprolol succinate, metoprolol, or carvedilol. If no contraindication and if systolic heart failure present clinically, consider addition of Entresto.
== END ==
LOC: M CARPUL 11:26
PROVIDERS: ATTEND Internal Medicine Hematology & Oncology
DX: C50.919 Malignant neoplasm of unspecified site of unspecified female breast (principal)

== ENCOUNTER → 2021-05-31 | Outpatient (REF) | payer MEDICAID ==
[~2021-05-31] MED LIST changes: +CORE3.12 PO; +FURO20TA2 PO
[2021-05-31 16:26] LABS: BLOOD UREA NITROGEN 8 MG/DL (7-18); CALCIUM LEVEL 8.9 MG/DL (8.5-10.1); CARBON DIOXIDE LEVEL 27 MEQ/L (21-32); CHLORIDE LEVEL 107 MEQ/L (98-107); CREATININE FOR GFR 0.63 MG/DL (0.55-1.30); GLOMERULAR FILTRATION RATE > 60.0 (>60); GLUCOSE, FASTING 83 MG/DL (70-100); NT-PRO BNP 1020 PG/ML (<125); SODIUM LEVEL 138 MEQ/L (136-145)
== END ==
LOC: M LAB REF 15:22
PROVIDERS: ATTEND Internal Medicine Cardiovascular Disease
DX: I42.7 Cardiomyopathy due to drug and external agent (principal)

== ENCOUNTER → 2021-06-08 | Outpatient (CLI) | payer MEDICAID ==
[~2021-06-08] MED LIST changes: +BANO25TA PO; +CARV12.5 PO; +CARV6.25 PO; +CETI10TA4 PO; +ENTR1TAB PO; +JARD1TAB PO; +PENT400T47 PO; -PROC10TA4 PO; +PROC10TA5 PO; +PROHANCE 279.3MG/ML 15ML VIAL As Ordered ONE; +SPIR-10 PO; +TAMO20TA8 PO; +TRAM50TA2 PO; +ULTR50TA8 PO; +VITA100020 PO
== END ==
LOC: M RAD 15:52
PROVIDERS: ATTEND Surgery
DX: C50.911 Malignant neoplasm of unspecified site of right female breast (principal)
CPT/HCPCS: 77049; A9576

== ENCOUNTER → 2021-06-25 | Outpatient (CLI) | payer MEDICAID ==
[~2021-06-25] MED LIST changes: -BANO25TA PO; -CARV12.5 PO; -CARV6.25 PO; -CETI10TA4 PO; -PENT400T47 PO; +PROC10TA4 PO; -PROC10TA5 PO; -PROHANCE 279.3MG/ML 15ML VIAL As Ordered ONE; -SPIR-10 PO; -TAMO20TA8 PO; -TRAM50TA2 PO; -ULTR50TA8 PO; -VITA100020 PO
== END ==
LOC: M PLALAB 12:04
PROVIDERS: ATTEND Surgery
DX: E34.9 Endocrine disorder, unspecified (principal)

== ENCOUNTER → 2021-07-05 | Outpatient (CLI) | payer MEDICAID | LOC: M LABSMTC 09:27 | PROVIDERS: ATTEND Anesthesiology | DX: Z01.812 Encounter for preprocedural laboratory examination (principal); Z20.822 Contact with and (suspected) exposure to COVID-19 ==

== ENCOUNTER → 2021-07-06 | Outpatient (CLI) | payer MEDICAID ==
[2021-07-06 17:53] LABS: BASO # 0.1 10^3/uL (0.0-0.2); BASO % 0.9 % (0.0-1.0); EOS # 1.1 10^3/uL (0.0-0.5); EOS % 16.1 % (0.0-3.0); HEMATOCRIT 40.6 % (36.0-47.0); HEMOGLOBIN 13.1 g/dl (12.0-15.5); LYMPH # 1.8 10^3/uL (1.5-5.0); LYMPH % 26.4 % (24.0-44.0); MEAN CORPUSCULAR HEMOGLOBIN 28.4 pg (27.0-33.0); MEAN CORPUSCULAR HGB CONC 32.3 g/dl (32.0-36.5); MEAN CORPUSCULAR VOLUME 87.9 fl (80.0-96.0); MONO # 0.4 10^3/uL (0.0-0.8); MONO % 6.2 % (2.0-8.0); NEUTROPHILS # 3.5 10^3/uL (1.5-8.5); NEUTROPHILS % 50.3 % (36.0-66.0); PLATELET COUNT, AUTOMATED 366 10^3/uL (150-450); RED BLOOD COUNT 4.62 10^6/uL (4.00-5.40); WHITE BLOOD COUNT 6.9 10^3/uL (4.0-10.0)
[2021-07-06 18:25] LABS: ALBUMIN 3.8 GM/DL (3.2-5.2); ALT/SGPT 20 U/L (12-78); BILIRUBIN,TOTAL 0.6 MG/DL (0.2-1.0); BLOOD UREA NITROGEN 10 MG/DL (7-18); CALCIUM LEVEL 8.7 MG/DL (8.5-10.1); CARBON DIOXIDE LEVEL 30 MEQ/L (21-32); CHLORIDE LEVEL 106 MEQ/L (98-107); CHOLESTEROL LEVEL 214 MG/DL (<200); CREATININE FOR GFR 0.94 MG/DL (0.55-1.30); FERRITIN 27 NG/ML (8-252); FREE T4 0.88 NG/DL (0.76-1.46); GLOMERULAR FILTRATION RATE > 60.0 (>60); GLUCOSE, FASTING 111 MG/DL (70-100); HDL CHOLESTEROL 50 MG/DL (>40); LDL CHOLESTEROL 140 MG/DL (<100); MAGNESIUM LEVEL 2.2 MG/DL (1.8-2.4); NON-HDL-C 164 MG/DL; NT-PRO BNP 570 PG/ML (<125); POTASSIUM SERUM 3.8 MEQ/L (3.5-5.1); SODIUM LEVEL 139 MEQ/L (136-145); TOTAL PROTEIN 7.3 GM/DL (6.4-8.2); TRIGLYCERIDES LEVEL 118 MG/DL (<150)
[2021-07-06 18:28] LABS: INR 1.01; PARTIAL THROMBOPLASTIN TIME 33.3 SECONDS (25.9-37.0); PROTHROMBIN TIME 13.7 SECONDS (12.7-14.5)
== END ==
LOC: M PLALAB 15:22
PROVIDERS: ATTEND Family Medicine
DX: I50.20 Unspecified systolic (congestive) heart failure (principal)

== ENCOUNTER 2021-07-10 09:29 | Observation (INO) | payer MEDICAID ==
[~2021-07-10] VITALS: Ht 157.5 cm; Wt 73.9 kg
[~2021-07-10 09:29] MED LIST changes: +LR 1,000 ML IV ONE
--- OUTSIDE RECORDS SUMMARY | 2021-07-10 09:33 | CCD | Continuity of Care Document ---
Author Author Alaina RIDDLE DO Organization Unknown Address [address] [place] [address] Phone [phone] Care Team Providers Care Assistant Art Director Name Role Phone AUTM Unavailable Magdi Cash D.O. AUTM Baltazar Dickinson M.D. AUTM [phone] Problems Active Problems Provider Date Encounter for supervision of other normal , s econd trimester Kim Payan CNM Onset: 10/30/2017 Supervision of with insufficient c are, second trimester Elizabeth Hernández, CASSIDY, CNM Onset: 10/03/2017 Social History Type Date Description Comments Sex Female ETOH Use Denies alcohol use Tobacco Use Start: Unknown Second-Hand Smoke In Home Recreational Drug Use Current Drug User Medical Marijuana Tobacco Use Start: Unknown Denies Smoking Allergies, Adverse Reactions, Alerts Description No Known Drug Allergies Medications Active Medications SIG Qnty Indications Ordering Provide r Date Norgestimate-Eth Estradiol 0.25-35mg-mcg Tablets 1 by mouth every day 3tabs Chris Jj MD 07/2018 Ibuprofen 800mg Tablets 1 by mouth three times a day 30tabs Chris Jj MD 02/12/2018 Carvedilol 3.125mg Tablets 1 tab by mouth twice a day Unknown Furosemide 20mg Tablets Take One Tablet By Mouth Once Daily Unknown Zyrtec Allergy 10mg Capsules 1 by mouth every day Unknown Benadryl Allergy 25mg Tablets take 2 tabs by mouth prn Unknown Jardiance 10mg Tablets 1 tab by mouth every day Unknown Immunizations CPT Code Status Date Vaccine Lot # [id number] Given 12/11/2017 Tetanus, Diphthe teresa Toxoids/Acellular Pertussis Vaccine 7 Or > Vital Signs Date Vital Result Comment 06/22/2021 1:52pm BP Systolic 96 mmHg BP Diastolic 60 mmHg Heart Rate 82 /min Body Temperature 96.7 F Height 62 inches 5'2" Weight 167.25 lb BMI (Body Mass Index) 30.6 kg/m2 [place] Body Weight 110 lb Weight 75.865 kg BSA (Body Surface Area) 1.77 m2 Results Test Acquired Date Facility Test Result H/L Range Note Surgical Pathology Consult 12/25/2020 [facility] Surgical Pathology Consult Surgical Patholo <SEE NOTE> 1 1 Surgical Pathology Report Name: ALAINA HOUSTON Collection Date: 12/25/2020 00:00 Received Date: 12/25/2020 10:30 Physician(s): MAGID CASH DO HAGHIR, SHAHANDEH F, MD Specimen(s) Received A: Material received for consultation, GD, [facility], [id number] Clinical History For consultation. 30 year-old lady with right breast mass. Please also do ER, [place], HER2, reflex to FISH. Diagnosis BREAST, RIGHT, NEEDLE BIOPSY ([id number], 12/20/20): INVASIVE DUCTAL CARCINOMA. GRADE: 3 VASCULAR INVASION: Absent DCIS: Absent CALCIFICATIONS: Present ESTROGEN RECEPTORS: Negative (0% staining). PROGESTERONE RECEPTORS: Low Positive (1-10%). HER2: Negative (1+). Note I completely agree with your diagnosis of high-grade invasive ductal carcinoma. Thank you for letting me see this case in consultation. Electronically Signed By Aldair Lin M.D., Attending Pathologist 12/26/2020 17:06:54 Unless 'gross-only' is specified, the final diagnosis is based on a microscopic examination of mechanical service representative sections of tissue. Gross Description Received from [facility] in [place], [place], are 2 H and E stained slides and 1 paraffin block, labeled [id number], with the corresponding pathology report. This report may include one or more immunohistochemical stain results that use analyte specific reagents. All positive and negative controls have been reviewed by the attending pathologist and are satisfactory. The tests were developed and their performance characteristics determined by [facility] Pathology department. They have not been cleared or approved by the [place] Food and Drug Administration. The FDA has determined that such clearance or approval is not necessary. Procedures Description No Information Available Medical Devices Description No Information Available Encounters Description No Information Available Assessments Description No Information Available Plan of Treatment No Information Available Functional Status Description No Information Available Mental Status Description No Information Available Referrals Description No Information Available
--- OUTSIDE RECORDS SUMMARY | 2021-07-10 09:33 | CCD ---
Author Author [facility] Organization [facility] Address Unknown Phone Unavailable Care Team Providers Care Horticultural Farm Manager Name Role Phone Belem Cash Unavailable PROBLEMS Type Condition ICD9-CM Code [id number] Code Onset Dates Condition S tatus W/U Status Risk SNOMED Code Notes Problem Amenorrhea N91.2 Active confirmed 09213822 Problem Allergic rhinitis J30.9 Active confirmed 61 645358 Problem Mild intermittent asthma, uncomplicated J45.20 Active confirmed 934569891 Problem Infiltrating ductal carcinoma C50.919 Active confir med 204843840 Problem 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 breast C50.9 19 Active confirmed 921338064 Problem Systolic CHF I50.20 Active confirmed 2247227 09 Problem Overweight (BMI 25.0-29.9) E66.3 Active confirmed 870527637 ALLERGIES Allergen (clinical drug ingredient) Drug/Non Drug Allergy do cumented on EMR Reaction Allergy Type Onset Date Status seasonal nasaly/upper congestion Non Drug Allergy Active ENCOUNTERS from 1992 to 2021-07-05 Encounter Location Date Provider Diagnosis [facility] [address] [place] [address] [place] [address] 11 Jun, 2021 Belem Cash IMMUNIZATIONS No Information SOCIAL HISTORY Tobacco Use: Social History Observation Description Date Details (start date - stop date) Never Smoker Sex Assigned At : Social History Observation Description Sex Assigned At Unknown Language: Question Answer Notes Languages spoken: Hungarian Sexual Hx: Question Answer Notes Had sex in the last 12 months (vaginal, oral, or anal)? Yes LMP: 11/13/20 Have you ever had an STD? Yes with Men only Use protection? No Other? No Herpes? No Syphilis? No GC? No Chlamydia? Yes Tobacco Use: Question Answer Notes Are you a: never smoker REASON FOR REFERRAL No Information VITAL SIGNS No information MEDICATIONS Medication SIG (Take, Route, Frequency, Duration) Notes Start Da te End Date Status Furosemide 20 MG 1 tablet Orally every morning Active Carvedilol 3.125 MG 1 tab in AM/2 in PM Orally Twice a day Active Lidocaine-Prilocaine 2.5-2.5 % apply entire tube to ri ght nipple & surrounding tissue 2 hours before coming to hospital for surgery. Cover w. plastic Externally once for 1 day Jun, Active Benadryl Allergy 25 MG 1 tablet at bedtime as needed Orally Once a da y Active Albuterol Sulfate 108 (90 Base) MCG/ACT 1 puff as needed Inh alation every 4 hrs Active Entresto 24-26 MG 1 tablet Orally Twice a day Active Jardiance 10 MG 1 tablet Orally Once a day Active Lutera 0.1-20 MG-MCG 1 tablet Orally Once a day Active Cetirizine HCl 10 MG 1 tablet Orally Once a day Active PROCEDURES No Information RESULTS No Results REASON FOR VISIT emla MEDICAL (GENERAL) HISTORY Type Description Date Medical History heart failure Medical History infiltrating ductal carcinoma Surgical History C section 2018 Surgical History wisdom teeth removal (3) 2019 Surgical History right breast peristernal u/s bx with cli p December 20, 2020 Surgical History right breast bx January 17, 2021 Surgical History left breast bx February 09, 2021 Goals Section No Information Health Concerns No Information MEDICAL EQUIPMENT No Information MENTAL STATUS No Information FUNCTIONAL STATUS No Information ASSESSMENTS No Information PLAN OF TREATMENT Medication Medication Name Sig Start Date Stop Date Lidocaine-Prilocaine 2.5-2.5 % apply entire tube to ri ght nipple & surrounding tissue 2 hours before coming to hospital for surgery. Cover w. plastic Externally once for 1 day Jun, Next Appt Details Provider Name:Baltazar Dickinson, 2021-07-06 0 2:00:00 PM, [address] [place] [address], , [place], [address], Provider Name:Belem Cash, 12-07-19 01:15:00 PM, [address] [place] [address], , [place], [address], Provider Name:Belem Cash, 12-07-25 11:30:00 AM, [address] [place] [address], , [place], [address], Provider Name:Belem Cash, 12-08-15 11:00:00 AM, [address] [place] [address], , [place], [address], Insurance Providers Payer Name Payer Address Payer Phone Insured Name Patient Relati onship to Insured Coverage Start Date Coverage End Date MEDICAID [employer] [address] [facility] [id number] ETIENNE HOUSTON self
--- OUTSIDE RECORDS SUMMARY | 2021-07-10 09:33 | CCD | Continuity of Care Document ---
Author Author Alaina RIDDLE DO Organization Unknown Address [address] [place] [address] Phone [phone] Care Team Providers Care Cylinder Die Machine Helper Name Role Phone AUTM Unavailable Magdi Cash D.O. AUTM Baltazar Dickinson M.D. AUTM [phone] Problems Active Problems Provider Date Encounter for [...] CPT Code Status Date Vaccine Lot # [id number] Given 12/11/2017 Tetanus, Diphthe teresa Toxoids/Acellular Pertussis Vaccine 7 Or > Vital Signs Date Vital Result Comment 06/22/2021 1:52pm BP Systolic 96 mmHg BP Diastolic 60 mmHg Heart Rate 82 /min Body Temperature 96.7 F Height 62 inches 5'2" Weight 167.25 lb BMI (Body Mass Index) 30.6 kg/m2 [place] Body Weight 110 lb Weight 75.865 kg BSA (Body Surface Area) 1.77 m2 Results Test Acquired Date Facility Test Result H/L Range Note Surgical Pathology Consult 12/25/2020 [facility] Surgical Pathology Consult Surgical Patholo <SEE NOTE> 1 1 Surgical Pathology Report Name: ALAINA HOUSTON Collection Date: 12/25/2020 00:00 Received Date: 12/25/2020 10:30 Physician(s): MAGDI CASH DO HAGHIR, SHAHANDEH F, MD Specimen(s) Received A: Material received for consultation, GD, [facility], [id number] Clinical History For consultation. 30 year-old lady with right breast mass. Please also do ER, [place], HER2, reflex to FISH. Diagnosis BREAST, RIGHT, NEEDLE BIOPSY ([id number], 12/20/20): INVASIVE DUCTAL CARCINOMA. GRADE: 3 VASCULAR [...] is based on a microscopic examination of ambulatory services representative sections of tissue. Gross Description Received from [facility] in [place], [place], are 2 H and E stained slides and 1 paraffin block, labeled [id number], with the corresponding pathology report. This report may include one or more immunohistochemical stain results that use analyte specific reagents. All positive and negative controls have been reviewed by the attending pathologist and are satisfactory. The tests were developed and their performance characteristics determined by [facility] Pathology department. They have not been [...]
--- OUTSIDE RECORDS SUMMARY | 2021-07-10 09:33 | CCD | Continuity of Care Document ---
Author Author Alaina RIDDLE DO Organization Unknown Address [address] [place] [address] Phone [phone] Care Team Providers Care Tag Writer Name Role Phone AUTM Unavailable Magdi Cash D.O. AUTM Baltazar Dickinson M.D. AUTM [phone] Problems Active Problems Provider Date Encounter for [...] CPT Code Status Date Vaccine Lot # [id number] Given 12/11/2017 Tetanus, Diphthe teresa Toxoids/Acellular Pertussis Vaccine 7 Or > Vital Signs Date Vital Result Comment 06/22/2021 1:52pm BP Systolic 96 mmHg BP Diastolic 60 mmHg Heart Rate 82 /min Body Temperature 96.7 F Height 62 inches 5'2" Weight 167.25 lb BMI (Body Mass Index) 30.6 kg/m2 [place] Body Weight 110 lb Weight 75.865 kg BSA (Body Surface Area) 1.77 m2 Results Test Acquired Date Facility Test Result H/L Range Note Surgical Pathology Consult 12/25/2020 [facility] Surgical Pathology Consult Surgical Patholo <SEE NOTE> 1 1 Surgical Pathology Report Name: ALAINA HOUSTON Collection Date: 12/25/2020 00:00 Received Date: 12/25/2020 10:30 Physician(s): MAGDI CASH DO HAGHIR, SHAHANDEH F, MD Specimen(s) Received A: Material received for consultation, GD, [facility], [id number] Clinical History For consultation. 30 year-old lady with right breast mass. Please also do ER, [place], HER2, reflex to FISH. Diagnosis BREAST, RIGHT, NEEDLE BIOPSY ([id number], 12/20/20): INVASIVE DUCTAL CARCINOMA. GRADE: 3 VASCULAR [...] is based on a microscopic examination of payable representative sections of tissue. Gross Description Received from [facility] in [place], [place], are 2 H and E stained slides and 1 paraffin block, labeled [id number], with the corresponding pathology report. This report may include one or more immunohistochemical stain results that use analyte specific reagents. All positive and negative controls have been reviewed by the attending pathologist and are satisfactory. The tests were developed and their performance characteristics determined by [facility] Pathology department. They have not been cleared [...]
--- OUTSIDE RECORDS SUMMARY | 2021-07-10 09:33 | CCD ---
Author Author [facility] Organization [facility] Address Unknown Phone Unavailable Care Team Providers Care Helpdesk Administrator Name Role Phone Baltazar Dickinson Unavailable PROBLEMS Type Condition ICD9-CM Code [id number] Code Onset Dates Condition S tatus W/U Status Risk SNOMED Code Notes Problem Amenorrhea N91.2 Active confirmed 23580100 Problem Allergic rhinitis J30.9 Active confirmed 61 061741 Problem Mild intermittent asthma, uncomplicated J45.20 Active confirmed 207603443 Problem Infiltrating ductal carcinoma C50.919 Active confir med 024189226 Problem 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 breast C50.9 19 Active confirmed 496386512 Problem Systolic CHF I50.20 Active confirmed 3159606 09 Problem Overweight (BMI 25.0-29.9) E66.3 Active confirmed 425701577 ALLERGIES Allergen (clinical drug ingredient) Drug/Non Drug Allergy do cumented on EMR Reaction Allergy Type Onset Date Status seasonal nasaly/upper congestion Non Drug Allergy Active ENCOUNTERS from 1992 to 2021-07-06 Encounter Location Date Provider Diagnosis [address] [phone] [place] [address] 15 Jun, 2021 Baltazar Dickinson IMMUNIZATIONS No Information SOCIAL HISTORY Tobacco Use: Social History Observation Description Date Details (start date - stop date) Never Smoker Sex Assigned At : Social History Observation Description Sex Assigned At Unknown Language: Question Answer Notes Languages spoken: Yoruba Sexual Hx: Question Answer Notes Had sex [...] Notes Start Da te End Date Status Lidocaine-Prilocaine 2.5-2.5 % apply entire tube to ri ght nipple & surrounding tissue 2 hours before coming to hospital for surgery. Cover w. plastic Externally once for 1 day Jun, Active Furosemide 20 MG 1 tablet Orally every morning Active Jardiance 10 MG 1 tablet Orally Once a day Active Entresto 24-26 MG 1 tablet Orally Twice a day Active Albuterol Sulfate 108 (90 Base) MCG/ACT 1 puff as needed Inh alation every 4 hrs Active Cetirizine HCl 10 MG 1 tablet Orally Once a day Active Lutera 0.1-20 MG-MCG 1 tablet Orally Once a day Active Benadryl Allergy 25 MG 1 tablet at bedtime as needed Orally Once a da y Active Carvedilol 3.125 MG 1 tab in AM/2 in PM Orally Twice a day Active PROCEDURES No Information RESULTS No Results REASON FOR VISIT No Information MEDICAL (GENERAL) HISTORY Type Description Date Medical History R breast 3N breast cancer U MQ s/p ACT x 4 (c planned tax/carb) then developed sytolic CHF Medical History systolic CHF: 05/18/21 TTE: m ild global hypokinesis, LVEF 30%, normal PASP/TTO-Cylwkpf-rpk to AC chemorx Medical History asthma, mild intermittent Medical History overweight Medical History AR/AC Medical History Myriad myRisk HCT 12/21/20: VUS Surgical History C section 2018 Surgical History wisdom teeth removal (3) 2018 Surgical History right breast peristernal u/s bx with cli p December 20, 2020 Surgical History right breast bx January 17, 2021 Surgical History left breast bx February 09, 2021 Goals Section No Information Health Concerns No Information MEDICAL EQUIPMENT No Information MENTAL STATUS No Information FUNCTIONAL STATUS No Information ASSESSMENTS No Information PLAN OF TREATMENT Medication Medication Name Sig Start Date Stop Date Cetirizine HCl 10 MG 1 tablet Orally Once a day Lutera 0.1-20 MG-MCG 1 tablet Orally Once a day Entresto 24-26 MG 1 tablet Orally Twice a day Benadryl Allergy 25 MG 1 tablet at bedtime as needed Orally Once a day Carvedilol 3.125 MG 1 tab in AM/2 in PM Orally Twice a day Jardiance 10 MG 1 tablet Orally Once a day Furosemide 20 MG 1 tablet Orally every morning Albuterol Sulfate 108 (90 Base) MCG/ACT 1 puff as needed Inh alation every 4 hrs Next Appt Details Provider Name:Belem Cash, 12-07-19 01:15:00 PM, [address] [place] [address], , [place], [address], Provider Name:Belem Cash, 12-07-25 11:30:00 AM, [address] [place] [address], , [place], [place], [facility], Provider Name:Belem Cash, 12-08-15 11:00:00 AM, [address] [place] [address], , [place], [place], [facility], Insurance Providers Payer Name Payer Address Payer Phone Insured Name Patient Relati onship to Insured Coverage Start Date Coverage End Date MEDICAID [employer] [address] [facility] [id number] ETIENNE HOUSTON self
--- OUTSIDE RECORDS SUMMARY | 2021-07-10 09:33 | CCD | Continuity of Care Document ---
Author Author Alaina RIDDLE DO Organization Unknown Address [address] [place] [address] Phone [phone] Care Team Providers Care Metal Crafts Teacher Name Role Phone AUTM Unavailable Magdi Cash D.O. AUTM [phone] Baltazar Dickinson M.D. AUTM [phone] Problems Active Problems Provider Date Encounter for [...] CPT Code Status Date Vaccine Lot # [id number] Given 12/11/2017 Tetanus, Diphthe teresa Toxoids/Acellular Pertussis Vaccine 7 Or > Vital Signs Date Vital Result Comment 06/22/2021 1:52pm BP Systolic 96 mmHg BP Diastolic 60 mmHg Heart Rate 82 /min Body Temperature 96.7 F Height 62 inches 5'2" Weight 167.25 lb BMI (Body Mass Index) 30.6 kg/m2 [place] Body Weight 110 lb Weight 75.865 kg BSA (Body Surface Area) 1.77 m2 Results Test Acquired Date Facility Test Result H/L Range Note Surgical Pathology Consult 12/25/2020 [facility] Surgical Pathology Consult Surgical Patholo <SEE NOTE> 1 1 Surgical Pathology Report Name: ALAINA HOUSTON Collection Date: 12/25/2020 00:00 Received Date: 12/25/2020 10:30 Physician(s): MAGDI CASH DO HAGHIR, SHAHANDEH F, MD Specimen(s) Received A: Material received for consultation, GD, [facility], [id number] Clinical History For consultation. 30 year-old lady with right breast mass. Please also do ER, [place], HER2, reflex to FISH. Diagnosis BREAST, RIGHT, NEEDLE BIOPSY ([id number], 12/20/20): INVASIVE DUCTAL CARCINOMA. GRADE: 3 VASCULAR [...] is based on a microscopic examination of branch customer service representative sections of tissue. Gross Description Received from [facility] in [place], [place], are 2 H and E stained slides and 1 paraffin block, labeled [id number], with the corresponding pathology report. This report may include one or more immunohistochemical stain results that use analyte specific reagents. All positive and negative controls have been reviewed by the attending pathologist and are satisfactory. The tests were developed and their performance characteristics determined by [facility] Pathology department. They have not been [...]
--- OUTSIDE RECORDS SUMMARY | 2021-07-10 09:34 | CCD ---
Author Author [facility] Organization [facility] Address Unknown Phone Unavailable Care Team Providers Care Trimmer Machine Operator Name Role Phone Baltazar Dickinson Unavailable PROBLEMS Type Condition ICD9-CM Code CLE32-UH Code Onset Dates Condition S tatus W/U Status Risk SNOMED Code Notes Problem Allergic rhinitis J30.9 Active confirmed 61 234271 Problem Mild intermittent asthma, uncomplicated J45.20 Active confirmed 094886319 Problem Infiltrating ductal carcinoma C50.919 Active confir med 295273032 Problem 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 breast C50.9 19 Active confirmed 708421369 Problem Systolic CHF I50.20 Active confirmed 8871451 09 Problem Overweight (BMI 25.0-29.9) E66.3 Active confirmed 223662256 ALLERGIES Allergen (clinical drug ingredient) Drug/Non Drug Allergy do cumented on EMR Reaction Allergy Type Onset Date Status seasonal nasaly/upper congestion Non Drug Allergy Active ENCOUNTERS from 1992 to 2021-06-15 Encounter Location Date Provider Diagnosis [address] [phone] [place] [address] May, Baltazar Dickinson Triple negative malignant ne oplasm of breast C50.919 ; Systolic CHF I50.20 ; Overweight (BMI 25.0-29.9) E66.3 ; Mild intermittent asthma, uncomplicated J45.20 and Allergic rhinitis J30.9 IMMUNIZATIONS No Information SOCIAL HISTORY Tobacco Use: Social History Observation Description Date Details (start date - stop date) Never Smoker Sex Assigned At : Social History Observation Description Sex Assigned At Unknown Language: Question Answer Notes Languages spoken: Mozambican Sexual Hx: Question Answer Notes Had sex in the last 12 months (vaginal, oral, or anal)? Yes LMP: 11/13/20 Have you ever had an STD? Yes with Men only Use protection? No Other? No Herpes? No Syphilis? No GC? No Chlamydia? Yes Tobacco Use: Question Answer Notes Are you a: never smoker REASON FOR REFERRAL No Information VITAL SIGNS Weight 164.6 lbs May, Weight-kg 74.66 kg May, Height 62" in May, BMI 30.10 kg/m2 May, Heart Rate 102 /min May, Respiratory Rate 18 /min May, Temperature 97.1 degrees Fahrenheit May, Oximetry 99% May, Blood pressure systolic 104 mm Hg May, Blood pressure diastolic 62 mm Hg May, MEDICATIONS Medication SIG (Take, Route, Frequency, Duration) Notes Start Da te End Date Status Furosemide 20 MG 1 tablet Orally every morning Active Lutera 0.1-20 MG-MCG 1 tablet Orally Once a day Active Albuterol Sulfate 108 (90 Base) MCG/ACT 1 puff as needed Inh alation every 4 hrs Active Carvedilol 3.125 MG 1 tab in AM/2 in PM Orally Twice a day Active Entresto 24-26 MG 1 tablet Orally Twice a day Active Benadryl Allergy 25 MG 1 tablet at bedtime as needed Orally Once a da y Active Cetirizine HCl 10 MG 1 tablet Orally Once a day Active PROCEDURES No Information RESULTS No Results REASON FOR VISIT per Shantel MEDICAL (GENERAL) HISTORY Type Description Date Medical History 3- R UMQ breast CA sp AC x 4 cycles c AC -induced systolic HF Medical History overweight Medical History asthma, mild intermittent Medical History FH DM2 father in 30s/mother IFG Surgical History C section 2018 Surgical History wisdom teeth removal (3) 2019 Surgical History right breast peristernal u/s bx with cli p December 20, 2020 Surgical History right breast bx January 17, 2021 Surgical History left breast bx February 09, 2021 Goals Section No Information Health Concerns No Information MEDICAL EQUIPMENT No Information MENTAL STATUS No Information FUNCTIONAL STATUS No Information ASSESSMENTS Encounter Date Diagnosis Assessment Notes Treatment Notes Treatm ent Clinical Notes May, 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 breast (IC D-10 - C50.919) per px for upcoming repeat LN evaluation and B breast reduction by Dr. Stapleton and Najma respectively 06/08/21 B breast MRI c: R breast mass and L 6 mm retroareolar nodule no longer apparent s/p AC x 4 cycles-dced 2 AC-induced CHF May, Systolic CHF (ICD-10 - I50.20) Euvolemic on sac/denita 24/26 BId, fur 20 qAM, carve 3 BID, follows with Dr. Abbott Encouraged TomaszoV, influenza and PN vaccines, mCoV first! 05/18/21 TTE: mild global hypokinesis, LVEF 30%, normal PASP/CVP-Antecol 01/25/21 [id number] May, Overweight (BMI 25.0-29.9) (ICD-10 - E66.3) May, Mild intermittent asthma, uncomplicated (ICD-10 - J45.20) May, Allergic rhinitis (ICD-10 - J30.9) PLAN OF TREATMENT Medication Medication Name Sig Start Date Stop Date Furosemide 20 MG 1 tablet Orally every morning Entresto 24-26 MG 1 tablet Orally Twice a day Benadryl Allergy 25 MG 1 tablet at bedtime as needed Orally Once a day Carvedilol 3.125 MG 1 tab in AM/2 in PM Orally Twice a day Lutera 0.1-20 MG-MCG 1 tablet Orally Once a day Albuterol Sulfate 108 (90 Base) MCG/ACT 1 puff as needed Inh alation every 4 hrs Cetirizine HCl 10 MG 1 tablet Orally Once a day Treatment Notes Assessment Notes Clinical Notes 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 breast per px for upcoming repeat LN evaluation and B breast reduction by Dr. Stapleton and Najma respectively06/08/21 B breast MRI c: R breast mass and L 6 mm retroareolar nodule no longer apparents/p AC x 4 cycles-dced 2 AC-induced CHF Systolic CHF Euvolemic on sac/denita 24/26 BId, fur 20 qAM, carve 3 BID, follows with Dr. Meyeraged Nemesio, influenza and PN vaccines, mCoV first!05/18/21 TTE: mild global hypokinesis, LVEF 30%, normal PASP/CVP-Antecol01/25/21 [id number] Future Test Test Name Order Date HEMOGLOBIN A1c [id number] INSULIN LEVEL [id number] Comprehensive Metabolic Profile (CMP) [id number] MAGNESIUM LEVEL [id number] NT-PRO BNP [id number] PT & APTT [id number] CBC with Differential [id number] FERRITIN [id number] FREE T4 & TSH PANEL [id number] LIPID PANEL (CARDIAC RISK) [id number] Next Appt Details Reason: Provider Name:Chris Jj, 2021-06-18 10:15:00 AM, [address] [place] [address], , [place], [address], Provider Name:Belem Cash, 12-07-04 11:00:00 AM, [address] [place] [address], , [place], [address], Insurance Providers Payer Name Payer Address Payer Phone Insured Name Patient Relati onship to Insured Coverage Start Date Coverage End Date MEDICAID [employer] [address] [facility] [id number] [address] [place] self
--- OUTSIDE RECORDS SUMMARY | 2021-07-10 09:34 | CCD | Continuity of Care Document ---
Author Author Alaina RIDDLE DO Organization Unknown Address [address] [place] [address] Phone [phone] Care Team Providers Care Drill Presser Name Role Phone AUTM Unavailable Magdi Cash D.O. AUTM Baltazar Dickinson M.D. AUTM [phone] Problems Active Problems Provider Date Encounter for [...] CPT Code Status Date Vaccine Lot # [id number] Given 12/11/2017 Tetanus, Diphthe teresa Toxoids/Acellular Pertussis Vaccine 7 Or > Vital Signs Date Vital Result Comment 06/22/2021 1:52pm BP Systolic 96 mmHg BP Diastolic 60 mmHg Heart Rate 82 /min Body Temperature 96.7 F Height 62 inches 5'2" Weight 167.25 lb BMI (Body Mass Index) 30.6 kg/m2 [place] Body Weight 110 lb Weight 75.865 kg BSA (Body Surface Area) 1.77 m2 Results Test Acquired Date Facility Test Result H/L Range Note Surgical Pathology Consult 12/25/2020 [facility] Surgical Pathology Consult Surgical Patholo <SEE NOTE> 1 1 Surgical Pathology Report Name: ALAINA HOUSTON Collection Date: 12/25/2020 00:00 Received Date: 12/25/2020 10:30 Physician(s): MAGDI CASH DO HAGHIR, SHAHANDEH F, MD Specimen(s) Received A: Material received for consultation, GD, [facility], [id number] Clinical History For consultation. 30 year-old lady with right breast mass. Please also do ER, [place], HER2, reflex to FISH. Diagnosis BREAST, RIGHT, NEEDLE BIOPSY ([id number], 12/20/20): INVASIVE DUCTAL CARCINOMA. GRADE: 3 VASCULAR [...] is based on a microscopic examination of medical claims representative sections of tissue. Gross Description Received from [facility] in [place], [place], are 2 H and E stained slides and 1 paraffin block, labeled [id number], with the corresponding pathology report. This report may include one or more immunohistochemical stain results that use analyte specific reagents. All positive and negative controls have been reviewed by the attending pathologist and are satisfactory. The tests were developed and their performance characteristics determined by [facility] Pathology department. They have not [...]
--- OUTSIDE RECORDS SUMMARY | 2021-07-10 09:34 | CCD ---
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.9 19 Active confirmed 272348229 Problem Systolic CHF I50.20 Active confirmed 0949758 09 Problem Overweight (BMI 25.0-29.9) E66.3 Active confirmed 013464240 ALLERGIES Allergen (clinical drug ingredient) Drug/Non Drug Allergy do cumented on EMR Reaction Allergy Type Onset Date Status seasonal nasaly/upper congestion Non Drug Allergy Active ENCOUNTERS from 1992 to 2021-06-14 Encounter Location Date Provider Diagnosis [facility] [address] [place] [address] [place] [id number] May, Belem Cash IMMUNIZATIONS No Information SOCIAL HISTORY Tobacco Use: Social History Observation Description Date Details (start date - stop date) Never Smoker Sex Assigned At : Social History Observation Description Sex Assigned At Unknown Language: Question Answer Notes Languages spoken: Chadian Sexual Hx: Question Answer Notes Had sex [...] Information RESULTS No Results REASON FOR VISIT needs pcp - urgent MEDICAL (GENERAL) HISTORY Type Description Date Medical [...] MG 1 tablet Orally Once a day Next Appt Details Provider Name:Chris Jj, 2021-06-18 10:15:00 AM, [address] [place] [address], , [place], [address], Provider Name:Belem Cash, 12-07-04 11:00:00 AM, [address] [place] [address], , [place], [address], Insurance Providers Payer Name Payer Address Payer Phone Insured Name Patient Relati onship to Insured Coverage Start Date Coverage End Date MEDICAID [employer] [address] [facility] [id number] [address] [place] self
--- OUTSIDE RECORDS SUMMARY | 2021-07-10 09:34 | CCD ---
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 breast C50.9 19 Active confirmed 376326727 Problem Systolic CHF I50.20 Active confirmed 1429737 09 Problem Overweight (BMI 25.0-29.9) E66.3 Active confirmed 899006085 ALLERGIES Allergen (clinical drug ingredient) Drug/Non Drug Allergy do cumented on EMR Reaction Allergy Type Onset Date Status seasonal nasaly/upper congestion Non Drug Allergy Active ENCOUNTERS from 1992 to 2021-06-14 Encounter Location Date Provider Diagnosis [facility] [address] [place] [address] [place] [phone] May, Belem Cash IMMUNIZATIONS No Information SOCIAL HISTORY Tobacco Use: Social History Observation Description Date Details (start date - stop date) Never Smoker Sex Assigned At : Social History Observation Description Sex Assigned At Unknown Language: Question Answer Notes Languages spoken: Macanese Sexual Hx: Question Answer Notes Had sex [...] Information RESULTS No Results REASON FOR VISIT PCP APPT MEDICAL (GENERAL) HISTORY Type Description Date Medical [...] Details Provider Name:Chris Jj, 2021-06-18 10:15:00 AM, [address] [place] [address] [place], [address], Provider Name:Belem Cash, 12-07-04 11:00:00 AM, [address] [place] [address], , [place], [address], Insurance Providers Payer Name Payer Address Payer Phone Insured Name Patient Relati onship to Insured Coverage Start Date Coverage End Date MEDICAID [employer] [address] [facility] [id number] [address] [place] self
--- OUTSIDE RECORDS SUMMARY | 2021-07-10 09:34 | CCD ---
Author Author [facility] Organization [facility] Address Unknown Phone Unavailable Care Team Providers Care Editor Managing Director Name Role Phone NO, PCP Unavailable Unavailable DOMBROWSKA, K MAGDI DO Unavailable Unavailable DOMBROWSKA, K MAGDI DO Unavailable Unavailable DOMBROWSKA, K MAGDI DO Unavailable Unavailable DOMBROWSKA, K MAGDI DO Unavailable Unavailable DOMBROWSKA, K MAGDI DO Unavailable Unavailable DOMBROWSKA, K MAGDI DO Unavailable Unavailable DOMBROWSKA, K MAGDI DO Unavailable Unavailable DOMBROWSKA, K MAGDI DO Unavailable Unavailable DOMBROWSKA, K MAGDI DO Unavailable Unavailable DOMBROWSKA, K MAGDI DO Unavailable Unavailable DOMBROWSKA, K MAGDI DO Unavailable Unavailable DOMBROWSKA, K MAGDI DO Unavailable Unavailable DOMBROWSKA, K MAGDI DO Unavailable Unavailable DOMBROWSKA, K MAGDI DO Unavailable Unavailable DOMBROWSKA, K MAGDI DO Unavailable Unavailable DOMBROWSKA, K MAGDI DO Unavailable Unavailable DOMBROWSKA, K MAGDI DO Unavailable Unavailable DOMBROWSKA, K MAGDI DO Unavailable Unavailable DOMBROWSKA, K MAGDI DO Unavailable Unavailable DOMBROWSKA, K MAGDI DO Unavailable Unavailable DOMBROWSKA, K MAGDI DO Unavailable Unavailable DOMBROWSKA, K MAGDI DO Unavailable Unavailable ADJAPONG, JOSS Unavailable Unavailable BUMBANAC, A STAR ULTRASOUND COORDINATOR Unavailable Unavailable BUMBANAC, A STAR ULTRASOUND COORDINATOR Unavailable Unavailable BUMBANAC, A STAR ULTRASOUND COORDINATOR Unavailable Unavailable BUMBANAC, A STAR ULTRASOUND COORDINATOR Unavailable Unavailable BUMBANAC, A STAR ULTRASOUND COORDINATOR Unavailable Unavailable BUMBANAC, A STAR ULTRASOUND COORDINATOR Unavailable Unavailable BUMBANAC, A STAR ULTRASOUND COORDINATOR Unavailable Unavailable BUMBANAC, A STAR ULTRASOUND COORDINATOR Unavailable Unavailable BUMBANAC, A STAR ULTRASOUND COORDINATOR Unavailable Unavailable BUMBANAC, A STAR ULTRASOUND COORDINATOR Unavailable Unavailable BUMBANAC, A STAR ULTRASOUND COORDINATOR Unavailable Unavailable BUMBANAC, A STAR ULTRASOUND COORDINATOR Unavailable Unavailable BUMBANAC, A STAR ULTRASOUND COORDINATOR Unavailable Unavailable BUMBANAC, A STAR ULTRASOUND COORDINATOR Unavailable Unavailable BUMBANAC, A STAR ULTRASOUND COORDINATOR Unavailable Unavailable BUMBANAC, A STAR ULTRASOUND COORDINATOR Unavailable Unavailable BUMBANAC, A STAR ULTRASOUND COORDINATOR Unavailable Unavailable BUMBANAC, A STAR ULTRASOUND COORDINATOR Unavailable Unavailable BUMBANAC, A STAR ULTRASOUND COORDINATOR Unavailable Unavailable BUMBANAC, A STAR ULTRASOUND COORDINATOR Unavailable Unavailable BUMBANAC, A STAR ULTRASOUND COORDINATOR Unavailable Unavailable BUMBANAC, A STAR ULTRASOUND COORDINATOR Unavailable Unavailable BUMBANAC, A STAR ULTRASOUND COORDINATOR Unavailable Unavailable BUMBANAC, A STAR ULTRASOUND COORDINATOR Unavailable Unavailable BUMBANAC, A STAR ULTRASOUND COORDINATOR Unavailable Unavailable BUMBANAC, A STAR ULTRASOUND COORDINATOR Unavailable Unavailable BUMBANAC, A STAR ULTRASOUND COORDINATOR Unavailable Unavailable BUMBANAC, A STAR ULTRASOUND COORDINATOR Unavailable Unavailable BUMBANAC, A STAR ULTRASOUND COORDINATOR Unavailable Unavailable BUMBANAC, A STAR ULTRASOUND COORDINATOR Unavailable Unavailable BUMBANAC, A STAR ULTRASOUND COORDINATOR Unavailable Unavailable Elizabeth Abbott MD Unavailable Unavailable Elizabeth Abbott MD Unavailable Unavailable Elizabeth Abbott MD Unavailable Unavailable Elizabeth Abbott MD Unavailable Unavailable Elizabeth Abbott MD Unavailable Unavailable Elizabeth Abbott MD Unavailable Unavailable Elizabeth Abbott MD Unavailable Unavailable Elizabeth Abbott MD Unavailable Unavailable Elizabeth Abbott MD Unavailable Unavailable Elizabeth Abbott MD Unavailable Unavailable Elizabeth Abbott MD Unavailable Unavailable Elizabeth Abbott MD Unavailable Unavailable Elizabeth Abbott MD Unavailable Unavailable Elizabeth Abbott MD Unavailable Unavailable Elizabeth Abbott MD Unavailable Unavailable Elizabeth Abbott MD Unavailable Unavailable Elizabeth Abbott MD Unavailable Unavailable Elizabeth Abbott MD Unavailable Unavailable Elizabeth Abbott MD Unavailable Unavailable Elizabeth Abbott MD Unavailable Unavailable Elizabeth Abbott MD Unavailable Unavailable Elizabeth Abbott MD Unavailable Unavailable Elizabeth Abbott MD Unavailable Unavailable Elizabeth Abbott MD Unavailable Unavailable Elizabeth Abbott MD Unavailable Unavailable Elizabeth Abbott MD Unavailable Unavailable Elizabeth Abbott MD Unavailable Unavailable Elizabeth Abbott MD Unavailable Unavailable Elizabeth Abbott MD Unavailable Unavailable Elizabeth Abbott MD Unavailable Unavailable Elizabeth Abbott MD Unavailable Unavailable Elizabeth Abbott MD Unavailable Unavailable Elizabeth Abbott MD Unavailable Unavailable Elizabeth Abbott MD Unavailable Unavailable Elizabeth Abbott MD Unavailable Unavailable Elizabeth Abbott MD Unavailable Unavailable Elizabeth Abbott MD Unavailable Unavailable Elizabeth Abbott MD Unavailable Unavailable Elizabeth Abbott MD Unavailable Unavailable Elizabeth Abbott MD Unavailable Unavailable Elizabeth Abbott MD Unavailable Unavailable Elizabeth Abbott MD Unavailable Unavailable Elizabeth Abbott MD Unavailable Unavailable Elizabeth Abbott MD Unavailable Unavailable Elizabeth Abbott MD Unavailable Unavailable Elizabeth Abbott MD Unavailable Unavailable Elizabeth Abbott MD Unavailable Unavailable Elizabeth Abbott MD Unavailable Unavailable Elizabeth Abbott MD Unavailable Unavailable Elizabeth Abbott MD Unavailable Unavailable Slezka, Vojtech MD Unavailable Unavailable Slezka, Vojtech MD Unavailable Unavailable Slezka, Vojtech MD Unavailable Unavailable Slezka, Vojtech MD Unavailable Unavailable Slezka, Vojtech MD Unavailable Unavailable Slezka, Vojtech MD Unavailable Unavailable Slezka, Vojtech MD Unavailable Unavailable Slezka, Vojtech MD Unavailable Unavailable CHANLIECCO, C KARINA MD Unavailable Unavailable CHANLIECCO, C KARINA MD Unavailable Unavailable CHANLIECCO, C KARINA MD Unavailable Unavailable CHANLIECCO, C KARINA MD Unavailable Unavailable CHANLIECCO, C KARINA MD Unavailable Unavailable CHANLIECCO, C KARINA MD Unavailable Unavailable CHANLIECCO, C KARINA MD Unavailable Unavailable CHANLIECCO, C KARINA MD Unavailable Unavailable CHANLIECCO, C KARINA MD Unavailable Unavailable CHANLIECCO, C KARINA MD Unavailable Unavailable CHANLIECCO, C KARINA MD Unavailable Unavailable Re-disclosure Warning The records that you are about to access may contain information from federally-assisted alcohol or drug abuse programs. If such information is present, then the following federally mandated warning applies: This information has been disclosed to you from records protected by federal confidentiality rules (42 CFR part 2). The federal rules prohibit you from making any further disclosure of this information unless further disclosure is expressly permitted by the written consent of the person to whom it pertains or as otherwise permitted by 42 CFR part 2. A general authorization for the release of medical or other information is NOT sufficient for this purpose. The Federal rules restrict any use of the information to criminally investigate or prosecute any alcohol or drug abuse patient.The records that you are about to access may contain highly sensitive health information, the redisclosure of which is protected by Article 27-F of the [facility] Public Health law. If you continue you may have access to information: Regarding HIV / AIDS; Provided by facilities licensed or operated by the [facility] Office of Mental Health; or Provided by the [facility] Office for People With Developmental Disabilities. If such information is present, then the following [facility] mandated warning applies: This information has been disclosed to you from confidential records which are protected by state law. State law prohibits you from making any further disclosure of this information without the specific written consent of the person to whom it pertains, or as otherwise permitted by law. Any unauthorized further disclosure in violation of state law may result in a fine or halfway sentence or both. A general authorization for the release of medical or other information is NOT sufficient authorization for further disc losure. Allergies and Adverse Reactions Type Description Substance Reaction Status Data Source(s ) Propensity to adverse reactions PROCHLORPERAZINE Prochlorperazin e Palpitations Low Active [facility] Low Family History Family Member Name Family Member Gender Family Member Status Date o f Status Description Data Source(s) Unknown Unknown Encounters Encounter Providers Location Date Indications Data Source(s ) [place] [address] [facility] [address] 07/06/2021 12:00:00 AM EDT eCW1 ([facility]) Unknown [address] [facility] [place] [address] 07/02/2021 12:00:00 AM EDT eCW1 ([facility]) Outpatient Attender: Elizabeth ELISE-SJPQuentinGALILEO 05/25 12:00:00 AM EDT [facility] [address] [facility] [address] 06/14/2021 12:00:00 AM EDT eCW1 ([facility]) Unknown [address] [facility] [place] [address] 06/14/2021 12:00:00 AM EDT eCW1 ([facility]) Unknown [address] [facility] [place] [address] 06/13/2021 12:00:00 AM EDT eCW1 ([facility]) Unknown [address] [facility] [address] 06/11/2021 12:00:00 AM EDT eCW1 ([facility]) Outpatient Attender: Elizabeth ELISE-SJPQuentinGALILEO 05/2021 12:00:00 AM EDT - 05/31/2021 09:47:05 AM EDT [facility] Outpatient Admitter: JOSS GONZALEZReferrer: JOSS GONZALEZ 05/24/2021 12:00:00 AM EDT Elevated white blood cell count, unspecified [facility] Elevated white blood cell count, unspeci fied Outpatient Attender: Elizabeth BARLOW.GALILEO-SJP.GALILEO 04/24 12:00:00 AM EDT - 05/22/2021 09:01:53 AM EDT [facility] <td><content ID="_[id number]">Echo</content>
<content><content styleCode="xSecondary xLabel">Encounter Diagnosis:</content><content ID="_[id number]" styleCode="xSecondary">Malignant neoplasm</content></content></td><td><content styleCode="xSecondary">18-May-2021 12:48 </content><content styleCode="xLabel xSecondary"> To </content><content styleCode="xSecondary">18-May-2021 12:49</content>
<content styleCode="xSecondary">[facility]</content>
</td><td></td>[facility] 05/18 12:48:06 PM EDT - 05/18/2021 12:49:18 PM EDT Malignant neoplasm [facility] ([facility]) Malignant neoplasm Emergency Attender: KARINA OSUNA MDConsultant: PCP NO 05/15/2021 11:48:00 AM EDT - 05/15/2021 06:14:00 PM EDT [facility] Patient discharged. Outpatient [address] [facility] [address] 02/16/2021 12:00:00 AM EDT eCW1 ([facility]) (BC Biopsy) Breast Center Biopsy [address] [place] [address] 02/09/2021 12:00:00 AM EDT eCW1 ([facility]) [place] [address] [facility] [address] 01/25/2021 12:00:00 AM EDT eCW1 ([facility]) Out[place] [address] [facility] [address] 01/22/2021 12:00:00 AM EDT eCW1 ([facility]) Unknown [address] [facility] [address] 01/18/2021 12:00:00 AM EDT eCW1 ([facility]) Unknown [address] [facility] [address] 01/17/2021 12:00:00 AM EDT eCW1 ([facility]) Unknown [address] [facility] [address] 01/08/2021 12:00:00 AM EDT eCW1 ([facility]) Unknown [address] [facility] [address] 01/03/2021 12:00:00 AM EDT eCW1 ([facility]) Unknown [address] [facility] [address] 12/29/2020 12:00:00 AM EDT eCW1 ([facility]) Unknown [address] [facility] [address] 12/29/2020 12:00:00 AM EDT eCW1 ([facility]) Outpatient [address] [facility] [address] 12/28/2020 12:00:00 AM EDT [facility]CW1 [facility]) Outpatient Admitter: MAGDI Casillas: IVANA PEACE DO 12/25/2020 12:00:00 AM EDT - 12/25/2020 11:59:00 PM EDT Malignant neoplasm of unspecified site of right female [facility] Malignant neoplasm of unspecified site o f right female breast Unknown [address] [facility] [address] 12/21/2020 12:00:00 AM EDT eCW1 ([facility]) Outpatient [address] [facility] [address] 12/14/2020 12:00:00 AM EDT eCW1 ([facility]) Unknown [address] [facility] [address] 11/29/2020 12:00:00 AM EST eCW1 ([facility]) Outpatient [address] [facility] [address] 11/28/2020 12:00:00 AM EST eCW1 ([facility]) Outpatient Attender: YU LEIJA NP 10/27 02:12:00 PM EST - 10/27/2020 02:12:00 PM EST [facility] Medications Medication Brand Name Start Date Product Form Dose Route Admi nistrative Instructions Pharmacy Instructions Status Indications Reaction Description Data Source(s) Lidocaine 25 MG/ML / Prilocaine 25 MG/ML Topical Cream Lidocaine-Prilocaine 2.5- 2.5 % Lidocaine-Prilocaine 2.5-2.5 % 06/25/2021 12:00:00 AM EDT active Lidocaine-Prilocaine 2.5-2.5 % e 1 ([facility]) Lidocaine 25 MG/ML / Prilocaine 25 MG/ML Topical Cream Lidocaine-Prilocaine 2.5- 2.5 % Lidocaine-Prilocaine 2.5-2.5 % 06/25/2021 12:00:00 AM EDT active Lidocaine-Prilocaine 2.5-2.5 % e 1 ([facility]) carvedilol 6.25 MG Oral Tablet carvedilol (COREG) 6.25 MG tablet carvedilol (COREG) 6.25 MG tablet 06/21/2021 12:00:00 AM EDT 6.25 mg Oral active Take 1 tablet (6.25 mg total) by mouth 2 (two) times a day [facility] empagliflozin 10 MG Oral Tablet Empagliflozin 10 MG TA BS Empagliflozin 10 MG TABS 06/21/2021 12:00:00 AM EDT 10 mg Oral active Take 10 mg by mouth daily [facility] sacubitril 24 MG / valsartan 26 MG Oral Tablet sacubitril-valsartan (ENTRESTO) 24-26 MG TABS sacubitril-valsartan (ENTRESTO) 24-26 MG TABS 05/31/20 12:00:00 AM EDT 1 {tbl} Oral active Take 1 tablet by mouth 2 (two) times a day [facility] Furosemide 20 MG Oral Tablet furosemide (LASIX) 20 MG tablet furosemide (LASIX) 20 MG tablet 05/31/2021 12:00:00 AM EDT 20 mg Oral activ e Take 1 tablet (20 mg total) by mouth daily [facility] carvedilol 3.125 MG Oral Tablet carvedilol (COREG) 3.1 25 MG tablet carvedilol (COREG) 3.125 MG tablet 05/31/2021 12:00:00 AM EDT 3.125 mg Oral aborted Take 1 tablet (3.125 mg total) by mouth 2 (two) times a day [facility] sacubitril 24 MG / valsartan 26 MG Oral Tablet sacubitril-valsartan (ENTRESTO) 24-26 MG TABS sacubitril-valsartan (ENTRESTO) 24-26 MG TABS 05/22/20 12:00:00 AM EDT 1 {tbl} Oral aborted Take 1 t ablet by mouth 2 (two) times a day for 14 days [facility] benzonatate 100 MG Oral Capsule benzonatate (TESSALON) 100 MG capsule benzonatate (TESSALON) 100 MG capsule 05/15/2021 12:00:00 AM EDT active TAKE TWO CAPSULES BY MOUTH THREE TIMES A DAY NEEDED FOR COUGH [facility] Amoxicillin 875 MG / Clavulanate 125 MG Oral Tablet amoxicillin-clavulanate (AUGMENTIN) 875-125 MG per tablet amoxicillin-clavulanate (AUGMENTIN) 875- 125 MG per tablet 05/15/2021 12:00:00 AM EDT 1 {tbl} Oral aborte d Take 1 tablet by mouth 2 (two) times a day [facility] 200 ACTUAT Albuterol 0.09 MG/ACTUAT Mete red Dose Inhaler [ProAir] ProAir HFA 108 (90 Base) MCG/ACT inhaler ProAir HFA 108 (90 Base) MCG/ACT inhaler 05/15/2021 12:00:00 AM EDT active INHALE TWO PUFFS BY MOUTH FOUR TIMES A DAY NEEDED FOR WHEEZING [facility] Insurance Providers Payer name Policy type / Coverage type Policy ID Covered constitution party ID Covered constitution party's relationship to armstrong Policy Armstrong Plan Information MEDICAID M [id number] Self [id number] MEDICAID [id number] Lela [id number] MEDICAID [id number] [place]/[id number] SP [id number] [employer] BCBS B [id number] S [id number] [place] 302/[id number] SP [id number] SELF PAY ONLY [id number] SP [id number] O UNAVAILABLE UNAVAILA BLE BCBS [place] P[place] 302/307 [id number] [employer] BCBS B [id number] P [id number] [employer] O [id number] O U [id number] SELF PAY ONLY [id number] SP [id number] SELF PAY ONLY - SP1 [id number] SP [id number] [employer] [id number] SP U [id number] SELF PAY UNAVAILABLE SP UNAVAILA BLE PGBA [facility] [id number] [facility] MEDICAID [id number] SP [id number] D [employer] Commercial [id number] Self SELF PAY ONLY [id number] SP [id number] [facility] MEDICAID [id number] SP [id number] D Problems, Conditions, and Diagnoses Code Display Name Description Problem Type Effective Dates Data Source(s) 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 Z853 Personal history of malignant neoplasm o f breast Personal history of malignant neoplasm of breast Diagnosis 05/15/2021 11:48:[address] [facility] D46739 CONTACT WITH AND SUSPECTED EXPOSURE TO C OVID-19 CONTACT WITH AND SUSPECTED EXPOSURE TO COVID-19 Diagnosis 05/15/2021 11:48:00 AM EDT [facility] J159 Unspecified bacterial pneumonia Unspecified bacterial pneumonia Diagnosis 05/15/2021 11:48:00 AM EDT [facility] J4531 Mild persistent asthma with (acute) exac erbation Mild persistent asthma with (acute) exacerbation Diagnosis 05/15/2021 11:48:00 AM EDT [facility] R000 Tachycardia, unspecified Tachycardia, unspecified Diag nosis 05/15/2021 11:48:00 AM EDT [facility] R002 Palpitations Palpitations Diagnosis 05/15/2021 11:48:00 A M EDT [facility] C50.911 Malignant neoplasm of unspecified site o f right female breast Malignant neoplasm of unspecified site of right female breast Diagnosis 10:27:00 AM EDT [facility] N91.2 Amenorrhea Amenorrhea Problem 06/18/2021 12:00:00 AM ED T eCW1 ([facility]) C50.919 Malignant neoplasm of female breast Infiltrating ductal carcinoma Problem 06/15/2021 12:00:00 AM EDT eCW1 ([facility]) E66.3 [id number] Overweight (BMI 25.0-29.9) Problem 12:00:00 AM EDT eCW1 ([facility]) I50.20 Systolic heart failure Systolic CHF Problem 06/14/2021 12:00:00 AM EDT eCW1 ([facility]) 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 Problem 06/14/2021 12:00:00 AM EDT eCW1 ([facility]) J45.20 Mild intermittent asthma Mild intermittent asthma, unc omplicated Problem 06/14/2021 12:00:00 AM EDT eCW1 ([facility]) J30.9 Allergic rhinitis Allergic rhinitis Problem 06/14/2021 12:00:00 AM EDT eCW1 ([facility]) C50.911 [id number] Malignant neoplasm of unspecifie d site of right female breast Problem 05/31/2021 12:00:00 AM EDT eCW1 ([facility]) 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 [id number] 05/22/2021 12:00:00 AM EDT [facility] C50.919 [id number] Infiltrating ductal carcinoma Problem 12/27/2020 12:00:00 AM EDT eC1 ([facility]) Surgeries/Procedures Procedure Description Date Indications Data Source(s) BLOOD COUNT COMPLETE AUTO&AUTO DIFRNTL WBC COUNT <td>C BC AND DIFFERENTIAL</td><td>Routine</td><td>05/24/2021</td><td></td><td> </td> 05/24/2021 12:00:00 AM EDT [facility] HEMATOPATHOLOGY <td>HEMATOPATHOLOGY</td><td> Routine</td><td>05/24/2021 12:00 AM EDT</td><td></td><td> </td> 05/24/2021 12:00:00 AM EDT [facility] ECG ROUTINE ECG W/LEAST 12 LDS W/I&R <td>POCT AMB EKG</td><td>Routine</td><td>05/22/2021 8:31 AM EDT</td><td> 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</td><td> </td> 05/22/2021 08:31:00 AM EDT 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 [facility] 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 BLOOD COUNT COMPLETE AUTO&AUTO DIFRNTL WBC COUNT <td>C BC AND DIFFERENTIAL</td><td>Routine</td><td>05/21/2021</td><td></td><td> </td> 05/21/2021 12:00:00 AM EDT [facility] HEPATIC FUNCTION PANEL <td>HEPATIC FUNCTION PANEL</td><td>Routine</td><td>05/21/2021</td><td></td><td> </td> 05/21/2021 12:00:00 AM EDT [facility] BASIC METABOLIC PANEL CALCIUM TOTAL <td>BASIC METABOLI C PANEL</td><td>Routine</td><td>05/21/2021</td><td></td><td> </td> 05/21/2021 12:00:00 AM EDT [facility] BASIC METABOLIC PANEL CALCIUM TOTAL <td>BASIC METABOLI C PANEL</td><td>Routine</td><td>05/02/2021</td><td></td><td> </td> 05/02/2021 12:00:00 AM EDT [facility] Results ID Date Data Source [id number] 05/25/2021 03:57:[address] [facility] Hematopathology Report See Addendum Luca Carvajal: LASHAWN HOUSTONKOKI: [id number] Number: [id number] Date: 05/24/2021 00:00Received Date: 05/25/2021 13:02Physician(s): JOSS GONZALEZ MD ADJAPONG, OPOKU,JACQUELINEopy [facility]) ReceivedA: Blood, Flow Cytometry; RECEIVED 2 GREEN TOP PB (2 EXTRA EDTA PB SENT TOMOLECULAR)Clinical [id number] patient with a history of leukocytosis.TEST REQUESTED/PERFORMED: Flow Cytometry Analysis DiagnosisFlow cytometry of blood: Normal lymphocyte subsets with no evidence ofacute leukemia or non-Hodgkin lymphoma.History of leukocytosis, currently with eosinophilia and anemia. Molecularand cytogenetic testing is pending. Clinical correlation is recommended.Ashwin Guerin M.D.;Resident PathologistElectronically Signed By Soni Pruitt MD, PhD AttendingPathologist 05/25/2021 15:57:44The attending pathologist named above attests that he/she has personallyreviewed the relevant preparation(s) for the specimen(s) and rendered thefinal diagnosis. Addendum 06/01/2021 Cytogenetic analysis (see [id number]):FISH studies were negative for a deletion/rearrangement of the PDGFRA(4q12), PDGFRB (3a63-w95), and FGFR1 (8p12) loci, and showed no evidenceof a BCR/ABL1 [t(9;22)] rearrangement, providing no evidence for amyeloproliferative neoplasm with hypereosinophilia or for chronic myeloidleukemia . Addendum Electronically Signed By: Josiane Belcher MD 06/01/2021 11:20 Addendum 05/30/2021 Allele- specific PCR testing of this specimen is negative for a JAK2 [id number] ([id number]). Addendum Electronically Signed By: Josiane Bagley MD 05/30/2021 11:51 ProceduresFlow Cytometry Date Ordered:05/25/2021 Status: Signed Out05/25/2021 InterpretationPERIPHERAL BLOOD: CBC performed at [facility], [address] [place] [address] on 05/24/21.WBC 6.6 K/uLRBC 4.10 M/uLHgb *11.9 g/dLHct 36.9 %MCV 90.0 fLMCH 29.0 pgMCHC 32.2 g/dLRDW *15.2 %Platelets 293 K/uLDifferential Count (automated):25.6 % Mbkcjexyire25.3 % Eosinophils 1.1 % Kqufjljzg84.3 % Lymphocytes 0.3 % Atypical Lymphocytes 5.4 % Monocytes-------100.0 % A peripheral blood film is reviewed and shows mild anemia with occasionaldacryocytes. Eosinophilia (2.9 K/uL).Lymphoid Panel: Celso Alaina [phone] following markers were assayed: CD45 (gate), CD2, CD3, CD4, CD5, CD7,CD8, CD10, CD19, CD20, CD38, CD56, CD57, Kangley, and Lambda.# events: [id number]: 98%Flow Cytometry Differential (CD45/SSC)Lymphocyte [place]: 17%CD45 dim [place]: 0%Monocyte [place]: 2%Granulocyte [place]: 75%Nucleated/Erythroid [place]: 1%The lymphocyte gate showsB- cells (CD19): 3%T-cells (CD3): 69%NK-cells (CD3-/CD56+): 22%Kangley/Lambda Ratio: 2.0CD4/CD8 Ratio: 1.4Results: (expressed as % of lymphocyte gate)T-cell Markers: CD2 = 83, CD3 = 69, CD3/CD4 = 39, CD3/CD8 = 27, CD5 = 72,CD7 = 87, CD3/57 = 14B-cell markers: K[place]y = 2, Lambda = 1, CD19 = 3, CD20 = 4, CD19/10 = 2,CD19/CD5 = 2, CD38/CD20 = 3Light chain as % of B-Cells: CD19/Kangley = 51, CD19/Lambda = 29 CD19/CD5/Kangley = 2, CD19/CD5/Lambda = 0CD19/CD10/Kangley = 27, CD19/CD10/Lambda = 23NK cell Markers: CD56 = 28, CD57 = 26Other Markers: CD10 = 2, CD38 = 69Results-CommentsThe gated population of lymphocytes consists predominantly of T cells withnormal expression of schrader T-cell markers and a normal CD4/CD8 ratio, highnormal proportions of NK and cytotoxic T cells, and polyclonal B cells.Procedure Electronically Signed By:Soni Pruitt MD, PhD9/11/2020 This report may include one or more immunohistochemical stain/fluorochromeconjugated monoclonal antibody results that use analyte specific reagents.All positive and negative controls have been reviewed by the attendingpathologist and are satisfactory. The tests were developed and theirperformance characteristics determined by [facility] Pathology department.They have not been cleared or approved by the US Food and DrugAdministration. The FDA has determined that such clearance or approval isnot necessary. Name Value Range Interpretation Code Description Data Aura rce(s) Supporting Document(s) ID Date Data Source [id number] 05/31/2021 01:58:00 PM [facility] Cytogenetics ReportName: GEORGIE HOUSTON: [id number] Number: [id number] Date: 05/24/2021 00:00Received Date: 05/25/2021 15:50Physician(s): JOSS GONZALEZ MD ADJAPONG, OPOKU,[facility] [place] To:[facility]imen[facility]s) ReceivedA: Peripheral Blood (U-IF)Clinical [id number] patient with a history of leukocytosis and currenteosinophilia and anemia.TEST REQUESTED/PERFORMED: Fluorescence in situ hybridization - FISH DiagnosisFISH studies were negative for a deletion/rearrangement of the PDGFRA(4q12), PDGFRB (0x65-l89), and FGFR1 (8p12) loci, and showed no evidenceof a BCR/ABL1 [t(9;22)] rearrangement. Please correlate with theconcurrent Hematopathology report [id number].Electronically Signed By Soni Pruitt MD, PhD AttendingPathologist 05/31/2021 13:58:36Gross DescriptionFluorescence in situ Hybridization (FISH)nuc satnam(SCFD2,LNX,PDGFRA,KIT)x2[98/100],(PDGFRBx2)[97/100],(RIDS6t6)[100],(ABL1,BCR) x2[97/100]DescriptionFluorescence in situ hybridization (FISH) studies were negative for adeletion/rearrangement of the PDGFRA (4q12), PDGFRB (2e23-q53), and FGFR1(8p12) loci, and for a BCR/ABL1 [t(9;22)] rearrangement. Test DataSpecimen Processed: Peripheral BloodFluorescence in-situ Hybridization (FISH): 24 HR Unstimulated Probe NormalCut-off Nuclei Analyzed FISH SIGNAL PATTERNS Normal Abnormal NKCS LSI PDGFRA (4q12) tricolor fusion: ETAD1YC, LNX-SO, PDGFRA/KIT-SA 3% 100 2 tricolor fusion (G,O,A): 98% 0% 2% *LSI PDGFRB (6c36-s48) - BA 3% 100 2Y: 97% 0% 3% *LSI FGFR1 (8p12) - BA 3% 100 2Y: 100% 0% 0% LSI ABL1 (9q34.1) - SO BCR (22q11.2) - SG ES 3% 100 2O2% 0% 3% Vendor: [facility] or *Manomasa Probes: LSI: Locus Specific Probe; BA: Break Apart; ES: Extra Signal Fluorochromes/ Signals: SG: Spectrum Green; SO: Spectrum [place]; SA:Spectrum Aqua; Y: Yellow Fusion NKCS: Signals with No Known Clinical SignificanceDisclaimer: The FISH test was developed and its performance was validatedby the Cytogenetics section of the Department of Clinical Pathology. Thistest has not been cleared or approved by the U.S. Food and DrugAdministration (FDA). The FDA has determined that such approval is notnecessary. However, the procedure is considered investigational, andshould not be used as the sole criteria for diagnosis. Name Value Range Interpretation Code Description Data Aura rce(s) Supporting Document(s) ID Date Data Source [id number] 05/29/2021 02:46:00 PM [facility] Molecular Diagnostics ReportName: Daniel HOUSTON ANDRAMRN: [id number] Number: [id number] Date: 05/24/2021 00:00Received Date: 05/25/2021 16:10Physician(s): JOSS GONZALEZ MD ADJAPONG, OPOKUWE[facility]ERF[facility]opy To:SONI PRUITTMCLEOD HEALTH SEACOASTSpecimen(s) ReceivedA: Peripheral Blood - JAK2 - [id number] OF STUDY: JAK2 V617F Direct Mutation AnalysisSPECIMEN TYPE: Peripheral Blood (#[id number])RESULTS: NegativeINTERPRETATION: A negative result does not entirely rule out thepossibility of myeloproliferative neoplasm, as 5% of polycythemia verapatients and 40-50% of primary myelofibrosis and essential thrombocy themiapatients do not harbor a JAK2 mutation. Clinical correlation isrecommended. Testing for JAK2 exon 12, MPL, and/or CALR mutations may alsobe helpful if clinically indicated.COMMENTS: Extracted DNA was amplified with primers specific for detectingthe JAK2 V617F (c.1849 G>T) in exon 14 mutation. The sensitivity limit ofthe analysis is approximately 1% mutation positive ce lls. This result doesnot rule out presence of a chronic myeloproliferative neoplasm. If adiagnosis of essential thrombocythemia (ET) or primary myelofibrosis (PMF)is clinically indicated, testing for mutations in exon 9 of theCalreticulin (CALR) gene and exon 10 of the MPL gene should be considered.In the JAK2 (V617F) negative population, CALR exon 9 mutations are presentin 67% of ET and 88% of PMF patients (Jony Wooten et al. The New EnglandJournal of Medicine. 2013; 369: 25: 7213-5895). MPL exon 10 mutations arepresent in ~3-5% of ET and PMF patients (Wilfred SNELL et al. J Mol Diag.2013;15:733-743). If a diagnosis of polycythemia vera (PV) is clinicallyindicated, testing for JAK2 exon 12 mutations should be considered.Approximately 3% of PV cases carry a JAK2 exon 12 mutation (Francisca Wooten etal. [facility] Clin. Proc. 2005;80:947-958; Anup BARTON et al. Am. J. ofHematology 2011; 86(2) 071-645). This test was developed and its performance determined by the Departmentof Pathology. Although it has not been cleared or approved by the U.S.Food and Drug Administration (FDA), the FDA has determined that suchapproval is not necessary. The test has been validated and authorized forclinical use by the [facility] Dept. of Health ([facility]). js/rwElectronically Signed By Bobby Hinton M.D. Attending Pathologist 9/7/988259:46:54 Name Value Range Interpretation Code Description Data Aura rce(s) Supporting Document(s) ID Date Data Source [id number] 05/15/2021 11:48:00 AM EDT [facility] 1 OrderSheet [facility] Emergency Department [address] [place] [address] Phone #: ext- [phone] 05/15/2021 11:45 Patient: ALAINA HOUSTON Sex: F : 1990 Age: 31yWEIGHT:75.0 kg (M) HEIGHT:62 inches (S) BMI:30.3ALLERGIES: ProchlorperazineCHIEF COMPLAINT: palpitationsDIAGNOSIS: Sinus tachycardia, Pneumonia, AsthmaLAB ORDERSOrder Description Priority Entered Acknowledged InitialedCBC w Diff STAT 12:07 05/15/2021 12:14 Thao Montilla Victoria Amber R.N. ;CMP STAT 12:07 05/15/2021 12:14 Thao Montilla Victoria Amber R.N. ;Lipase STAT 12:07 05/15/2021 12:14 Thao Montilla Victoria Amber R.N. ;PT/PTT STAT 12:07 05/15/2021 12:14 Thao Montilla Victoria Amber R.N. ;Troponin-T STAT 12:07 05/15/2021 12:14 Thao Montilla Victoria Amber R.N. ;HCG Serum Qual STAT 12:12 05/15/2021 12:14 Thao Montilla Victoria Amber R.N. ;HCG Serum Quant STAT 13:46 05/15/2021 13:57 Thao Montilla Victoria Amber R.N. 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(Oxygen?(No)) ; Tech1 Reason for Study: Shortness of BreathCT CTA AORT STAT 14:18 05/15/2021 Ack'd: 14:18 Griselda Montilla R.N.ILIOFEM RUNOFF Karina Osuna Initialed: 14:20 Karina OsunaWISRRAEL INC PP ; Cancelled: Wrong Order 14:20(Oxygen? 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 ; R.N. Tech1(Oxygen?(No))(IV?(Yes)) Reason for Study: hx of breast cahncer sob, tachycardia r/o PEMEDICATION/IV/DRIP/FLUID ORDERSOrder Description Priority Entered Acknowledged InitialedDuoNeb 3 mL X2 12:24 05/15/2021 Ack'd: 12:27 12:37 Ealdia,Doses: 6 mL (3 mL Karina Osuna Amber Amber R.N.X2 Doses) ; R.N.NS IV 1000 mL 15:58 05/15/2021 Ack'd: 16:08 16:22 Montilla,Bolus: : Bolus 1000 Chanliecco, Karina Montilla, Griselda Griselda R.N.mL (X1) ; R.N.NS IV 1000 mL 17:04 05/15/2021 Ack'd: 17:09 17:14 Montilla,Bolus: : Bolus 1000 Chanliecco, Karina Montilla, Griselda Griselda R.N.mL (X1) ; R.N.Augmentin PO 875 17:04 05/15/2021 17:13 Montilla,mg (NOW) Coreyliecco, Karina Griselda R.N. ;Tessalon Perles PO 17:57 05/15/2021 18:17 Montilla,200 mg (NOW) Chanliecco, Karina Griselda R.N. ;GENERAL ORDERS 3 OrderSheet [facility] Emergency Department [address] [place] [address] Phone #: ext- [phone] 05/15/2021 11:45 Patient: ALAINA HOUSTON Sex: F : 1990 Age: 31yOrder Description Priority Entered Acknowledged InitialedBlood Pressure 12:07 05/15/2021 12:10 [facility], Jose R ER ; Njlu3Wojfotr Monitor 12:07 05/15/2021 12:10 [place](continuous) [facility] pattern drum maker, Jose R ER ; Isbc3VLE 12:07 05/15/2021 12:10 [place] [facility] pattern drum maker, Jose R ER ; Qorn8KFY 12:07 05/15/2021 12:10 [facility] pattern drum maker, Jose R ER ; Qkkr9Thwieq Old EKG 12:07 05/15/2021 12:14 Thao Montilla Victoria Amber R.N. ;Obtain Old Records 12:07 05/15/2021 12:14 Thao Montilla Victoria Amber R.N. ;Oxygen titrate to 12:07 05/15/2021 12:14 Eladia,92% Karina Osuna R.N. 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 ;Vitals - Orthostatic 12:12 05/15/2021 Ack'd: 12:14 12:27 Thao Montilla Victoria Weaver, Amber Amber R.N. ; R.N.[Electronically signed by Griselda Montilla R.N. (18:04/23)][Electronically signed by Karina Osuna (03:24 05/16/2021)][Electronically locked by Griselda Montilla R.N. (18:05/15/2021)] Name Value Range Interpretation Code Description Data Aura rce(s) Supporting Document(s) ID Date Data Source [id number] 05/15/2021 11:48:00 AM EDT [facility] 1 Medication Reconciliation Report [facility] Emergency Department [address] [place] [address] Phone #: ext- [phone] 05/15/2021 11:45 Patient: ALAINA HOUSTON Sex: F : 1990 Age: 31yWeight: 75.0 kgHeight/Length: 62 in.BMI: 30.3ALLERGIES: ProchlorperazineThe patient's Home Medications are listed below:CONTINUE TAKING THE FOLLOWING MEDICATIONS: AC chemo treatments, last 04/05/2021 Benadryl Allergy Oral 50 mg, 2x a day ZyrTEC Allergy Oral (10 mg) 1 tablet, dailyThe source(s) of the original Home Medication information:patientThe following Medications were given to the patient in the Emergency Department:Duoneb [Neb Tx] Neb TX 2 unit dose, administered: 12:27 05/15/2021NS [IV] IV Fluids bolus 1000 mL wide open, administered: 16:07 05/15/2021ugmentin [PO] PO 875 mg, administered: 17:13 05/15/2021NS [IV] IV Fluids bolus 1000 mL wide open, administered: 17:14 05/15/2021Tessalon Perles [PO] PO 200 mg, administered: 18:02 05/15/2021The following Medications were prescribed to the patient:Tessalon Perles 100 mg capsule Take 2 capsule three times a day for 7 days -- as needed for cough.Dispense 42 capsule. Refills: 0. Substitution permitted. Note to Pharmacy - USE Rx DISCOUNT CARD:$83.23, BIN:[id number], PCN:BERNARDINO, Group:[id number], ID:[id number].Pharmacy - [facility] - [address] [facility] ; [place] [address]. FaxNumber: [phone]. 2 Medication Reconciliation Report [facility] Emergency Department [address] [place] [address] Phone #: ext- [phone] 05/15/2021 11:45 Patient: ALAINA HOUSTON Sex: F : 1990 Age: 31yAugmentin 875 mg-125 mg tablet Take 1 tablet twice a day for 7 days -- Dispense 14 tablet. Refills: 0.Substitution permitted. Note to Pharmacy - USE Rx DISCOUNT CARD: $83.23, BIN:[id number],PCN:BERNARDINO, Group:[id number], ID:[id number].Pharmacy - [facility] [address] [place] [address] ; [place] [address]. Phone: QlxNumber: .Zithromax Z-Jesse 250 mg tablet Take 2 tablet once a day for 5 days -- then 1 tab daily x 4 days.Dispense 1 packet. Refills: 0. Substitution permitted. Note to Pharmacy - USE Rx DISCOUNT CARD:$80.55, BIN:[id number], PCN:BERNARDINO, Group:[id number], ID:[id number].Pharmacy - [facility] [address] [place] [address] ; [place] [address]. faxNumber: .albuterol sulfate HFA 90 mcg/actuation aerosol inhaler Inhale 2 puff four times a day for 30 days -- asneeded for wheezing. Dispense 18 gram. Refills: 0. Substitution permitted. Note to Pharmacy - USE RxDISCOUNT CARD: $8.03, BIN:[id number], PCN:BERNARDINO, Group:[id number], ID:[id number].Pharmacy - [facility] [address] [place] [address] ; [place] [address]. Phone: FaxNumber: . -- Karina Osuna Name Value Range Interpretation Code Description Data Auar rce(s) Supporting Document(s) ID Date Data Source [id number] 05/15/2021 11:48:00 AM EDT [facility] 1 Medication Administration Record [facility] Emergency Department [address] [place] [address] Phone #: ext- [phone] 05/15/2021 11:45 Patient: ALAINA HOUSTON Sex: F : 1990 Age: 31yWeight: 75.0 kgHeight/Length: 62 inBMI: 30.3ALLERGIES: Prochlorperazine Date/Time Medication Administered Medication OrderedGiven DUONEB [NEB TX] DuoNeb 3 mL X2 Doses: 6 mL (312:27 05/15/2021 Dose: 2 unit dose Nebulizer Neb TX mL X2 Doses)Griselda Montilla R.N.----Stop12:50 05/15/2021Griselda Montilla R.N.Start NS [IV] NS IV 1000 mL Bolus: : Bolus [id number]:07 05/15/2021 Dose: IV Fluids mL (X1)Griselda Montilla R.N. Bolus: 1000 mL wide open---- Dispensed: 1000 mL bagStop Site: #1 left AC17:09 05/15/2021Griselda Montilla R.NQuentinStart NS [IV] NS IV 1000 mL Bolus: : Bolus 264850:14 05/15/2021 Dose: IV Fluids mL (X1)Griselda Montilla R.N. Bolus: 1000 mL wide open---- Dispensed: 1000 mL bagStop Site: #1 left AC17:55 05/15/2021Griselda Montilla, R.N.Given AUGMENTIN [PO] (AMOXICILLIN-POT Augmentin PO 875 mg (NOW)17:13 05/15/2021 CLAVULANATE)Griselda Montilla R.N. Dose: 875 mg Tablets POGiven TESSALON PERLES [PO] Tessalon Perles PO 200 mg (NOW)18:02 05/15/2021 (BENZONATATE)Griselda Montilla, R.N. Dose: 200 mg Capsules PO Name Value Range Interpretation Code Description Data Aura rce(s) Supporting Document(s) ID Date Data Source [id number] 05/15/2021 11:48:00 AM EDT [facility] 1 General Instructions [facility] Emergency Department [address] [place] [address] Phone #: ext- [phone] 05/15/2021 11:45 Patient: ALAINA HOUSTON [facility]#: [id number] Sex: F : 1990 Age: 31ySinus tachycardia.Mild persistent asthma with an acute exacerbation and pneumonia. No status asthmaticus.Bacterial pneumonia.INSTRUCTIONS(blood work were unremarkable. you have a pneumonia on the left . take the zithromax and augmentinas prescribed. increase oral fluids. use the albuterol, inhaler as needed for wheezing. follow up with yourdoctor in 3 days if not better).Your Current Medications: Your current home medications have been reviewed.CONTINUE TAKING THE FOLLOWING MEDICATIONS:AC chemo treatments, last 04/05/2021*.Benadryl Allergy Oral : 50 mg 2x a day.ZyrTEC Allergy Oral : Tablet 10 mg, 1 tablet daily.Prescription Medications:Tessalon Perles 100 mg capsule Take 2 capsule three times a day for 7 days -- as needed for cough.Dispense 42 capsule. Refills: 0. Substitution permitted. Note to Pharmacy - USE Rx DISCOUNT CARD:$83.23, BIN:[id number], EUNN:BERNARDINO, Group:EMR, ID:[id number].Pharmacy - [facility] [address] - [address] [place] [address]. FaxNumber: .Augmentin 875 mg-125 mg tablet Take 1 tablet twice a day for 7 days -- Dispense 14 tablet. Refills: 0.Substitution permitted. Note to Pharmacy - USE Rx DISCOUNT CARD: $83.23, BIN:[id number],PCN:BERNARDINO, Group:EMR, ID:[id number].[facility] - [facility] #43 - [address] [facility] ; [place] [address]. FaxNumber: .Zithromax Z-Jesse 250 mg tablet Take 2 tablet once a day for 5 days -- then 1 tab daily x 4 days.Dispense 1 packet. Refills: 0. Substitution permitted. Note to Pharmacy - USE Rx DISCOUNT CARD:$80.55, BIN:[id number], PCN:BERNARDINO, Group:EMR, ID:[id number].Pharmacy - [facility] [address]69 - [address] [facility] ; [place] [address]. FaxNumber: .albuterol sulfate HFA 90 mcg/actuation aerosol inhaler Inhale 2 puff four times a day for 30 days -- asneeded for wheezing. Dispense 18 gram. Refills: 0. Substitution permitted. Note to Pharmacy - USE RxDISCOUNT CARD: $8.03, BIN:[id number], PCN:BERNARDINO, Group:EMR, ID:[id number]. 2 General Instructions [facility] Emergency Department [address] [place] [address] Phone #: ext- [phone] 05/15/2021 11:45 Patient: ALAINA HOUSTON Sex: F : 1990 Age: 31yPharmacy - [facility] #31 - [address] [facility] ; [place] [address]. FaxNumber: .Follow-up:Follow up with your healthcare provider in three if not better. Reason for referral: evaluation. Summary ofcare provided to patient via paper. ADDITIONAL INFORMATIONAsthma (Adult)Asthma is a disease where the medium and small air passages in the lung go into spasm and restrictair flow. Inflammation and swelling of the airways cause further blockage. During an acute asthmaattack, these factors cause trouble breathing, wheezing, cough, and chest tightness.An asthma attack can be triggered by many things. Common triggers include infections such as thecommon cold, bronchitis, and pneumonia. Irritants such as smoke or pollutants in the air, very cold 3 General Instructions [facility] Emergency Department [address] [place] [address] Phone #: ext- [phone] 05/15/2021 11:45 Patient: ALAINA HOUSTON Sex: F : 1990 Age: 31yair, emotional upset, and exercise can also trigger an attack. In many adults with asthma, allergiesto dust, mold, pollen, and animal dander can cause an asthma attack. Skipping doses of daily asthmamedicine can also bring on an asthma attack.Asthma can be controlled using the correct medicines prescribed by your healthcare provider andstaying away from known triggers including allergens and irritants.Home care Take prescribed medicine exactly at the times advised. If you need medicine such as from a handheld inhaler or aerosol breathing machine more than every 4 hours, contact your healthcare provider or get medical care right away. If you are prescribed an antibiotic or prednisone, take all of the medicine as prescribed. Keep taking it even if you are feeling better after a few days. Don't smoke. Stay away from the smoke of others. Some people with asthma find their symptoms get worse when they take aspirin and non-steroidal or fever-reducing medicines such as ibuprofen and naproxen. Talk with your healthcare provider if you think this may apply to you.Follow-up careFollow up with your healthcare provider, or as advised. Always bring all of your current medicines toany appointments with your healthcare pr ovider. Also bring a complete list of medicines, even thosenot taken for asthma. If you don't already have one, talk with your healthcare provider about makingyour own Asthma Action Plan.A pneumonia (pneumococcal) vaccine and yearly flu shot (every fall) are advised. Ask your providerabout this.When to get medical adviceCall your healthcare provider or get medical care right away if any of these occur: More wheezing or shortness of breath Need to use your inhalers more often than normal without relief Fever of 100.4F (38C) or higher, or as directed by your provider Coughing up lots of dark-colored or bloody sputum (mucus) Chest pain with each breath If you use a peak flow meter as part of an Asthma Action Plan, and you are still in the yellow 4 General Instructions [facility] Emergency Department [address] [place] [address] Phone #: [phone] min- [phone] 05/15/2021 11:45 -- [facility]: [facility]STON [id number] Sex: F : 1990 Age: 31y zone (50% to 80%) 15 minutes after using inhaler medicine.Call [phone] if any of these occur: Trouble walking or talking because you are short of breath If you use a peak flow meter as part of an Asthma Action Plan, and you are still in the red zone (less than 50%) 15 minutes after using inhaler medicine Lips or fingernails turn levin, purple, or blue Feeling faint or loss of consciousness 2719-[address] [employer] [place] [address]. All rights reserved. This information is not intended as asubstitute for professional medical care. Always follow your healthcare professional's instructions.Pneumonia (Adult)Pneumonia is an infection deep in the lungs. It is in the small air sacs (alveoli). It may be caused by avirus, f ungus, or bacteria. Pneumonia caused by bacteria is often treated with an antibiotic. Severecases may need to be treated in the hospital. Milder cases can be treated at home. Pneumoniasymptoms are a lot like flu symptoms. They include fever, cough (dry or with phlegm), headache,muscle weakness, and pain. These symptoms often get worse in the first 2 days. But they often startto get better in the first week of treatment. 5 General Instructions [facility] Emergency Department [address] [place] [address] Phone #: ext- [phone] 05/15/2021 11:45 Patient: ALAINA HOUSTON Sex: F : 1990 Age: 31yHome [facility] Hospitalow these guidelines when caring for yourself at home: Get plenty of rest. Don't let yourself get overly tired when you go back to your activities. Participate in activities as directed by your healthcare provider. Stop smoking. This is the most important step you can take to help treat pneumonia. If you need help stopping smoking, talk with your healthcare provider. Stay away from smoke and other irritants. Stay away from secondhand smoke. Don't let anyone smoke in your home. 6 General Instructions [facility] Emergency Department [address] [place] [address] Phone #: ext- [phone] 05/15/2021 11:45 Patient: ALAINA HOUSTON Sex: F : 1990 Age: 31y Prevent lung infections. Ask your healthcare provider about the flu and pneumonia vaccines. Take steps to prevent colds and other lung infections. Practice correct handwashing. Wash your hands often with soap and water. Use hand mfts when you can't wash your hands. Stay away from crowds during cold and flu season. Use pain medicine as directed. You may use acetaminophen or ibuprofen to control fever or pain, unless another medicine was prescribed. If you have chronic liver or kidney disease, talk with your healthcare provider before using these medicines. Also talk with your provider if you've had a stomach ulcer or GI (gastrointestinal) bleeding. Don't give aspirin to a child younger than age 19 unless directed by the provider. Taking aspirin can put a child at risk for Otto syndrome. This is a rare but very serious disorder. It most often affects the brain and the liver. Eat a light diet as needed. You may not feel like eating, so a light diet is fine. Follow the treatment plan as advised by your healthcare provider. Drink plenty of water and fluids. This can make mucus thinner and easier to cough up. Ask your healthcare provider how much water you should drink. For many people, 6 to 8 glasses (8 ounces each) a day is a good goal. Other fluids include sport drinks, sodas without caffeine, juices, tea, or soup. If you also have heart or kidney disease, check with your provider before you drink extra fluids. Finish all prescription medicine. Take antibiotic or antiviral medicine as prescribed by your healthcare provider, even if you are feeling better after a few days. Take the medicine until it is all gone. Try to stay away from air pollution. If you live in an area with air pollution, track the Air Quality Index (AQI) reports and plan your outdoor activities with the AQI recommendations in mindFollow-up careFollow up with your healthcare provider in the next 2 to 3 days, or as advised. This is to be sure themedicine is helping you get better.If you are 65 or older, you should get a pneumococcal vaccine and a yearly flu (influenza) shot. Youshould also get these vaccines if you have chronic lung disease such as asthma, emphysema, orCOPD. A second type of pneumonia vaccine is also available for people over age 65 and thoseyounger than 65 with certain health conditions. Talk with your healthcare provider about whichpneumococcal vaccine is best for you.Call [phone] any of these occur: 7 General Instructions [facility] Emergency Department [address] [place] [address] Phone #: ext- [phone] 05/15/2021 11:45 Patient: ALAINA HOUSTON Sex: F : 1990 Age: 31y Unable to speak or swallow Lips or skin looks blue, purple, or levin Feeling dizzy or faint Unable to wake up or loss of consciousness Feeling of doom Trouble breathing or wheezing Shortness of breath gets worse or doesn't get better with treatment Rapid breathing (more than 25 breaths per minute) Coughing up blood Chest pain gets worse with breathing or doesn't get better with treatmentWhen to get medical adviceCall your healthcare provider right away if any of these occur: You don't get better in the first 2 days of treatment Fever of 100.4F (38C) or higher, or as directed by your healthcare provider Shaking chills Cough with phlegm that doesn't get better, or get worse Shortness of breath with activities Weakness, dizziness, or fainting that gets worse Thirst or dry mouth that gets worse Sinus pain, headache, or a stiff neck Chest pain with breathing or coughing Symptoms that get worse or not improving [id number] [employer] [place] [address]. All rights reserved. This information is not intendedas a substitute for professional medical care. Always follow your healthcare professional's instructions. You have been given the following additional information: Asthma, Acute (Adult) Pneumonia (Adult) 8 General Instructions [facility] Emergency Department [address] [place] [address] Phone #: ext- [phone] 05/15/2021 11:45 [id number] Sex: F : 1990 Age: 31y(Electronically signed by Karina Osuna 05/16/2021 03:24) Name Value Range Interpretation Code Description Data Aura rce(s) Supporting Document(s) ID Date Data Source [id number] 05/15/2021 11:48:00 AM EDT [facility] 1 Clinical Report - Nurses [facility] Emergency Department [address] [place] [address] Phone #: ext- [phone] 05/15/2021 11:45 [facility]: [facility] HOUSTON [id number] Sex: F : 1990 Age: 31yTRIAGEArrived by private vehicle. Historian: patient. Accompanied by spouse (in vehicle).Triage time: late entry - 11:50 05/15/2021. Acuity: LEVEL 3.Chief Complaint: (Heart palpitations).Alert. No acute distress.Onset. (1 month ago). ( Pt states she is currently a patient at the [facility] for breast cancer,but "haven't gotten them in a while due to low neutrophils"; Pt states she feels "my heart is beating a bitquicker than normal and feels like it's beating out of my chest"; [facility]. Pt denies any other symptoms besides some intermittent nausea anddizziness.). She has had nausea (intermittent). No difficulty breathing or vomiting.Treatment GROCERY CARRIER:None.SEPSIS SCREEN: SIRS SCREEN NEGATIVE: heart rate greater than 90. SEPSIS SCREEN NEGATIVE.No suspected or confirmed signs of infection present. --12:01 05/15/21 Lucie Yancey R.N.11:56 05/15/21. BP: 114/83. MAP: 93. HR: 113. RR: 18. O2 saturation: 98% on room air. Temp: 98.7 F.Pain level now: 11/01. --12:01 05/15/21 Lucie Yancey R.N.Weight: 75 kg measured. Height/Length: 62 inches Per Patient. BMI: 30.3. --11:50 05/15/21 Lucie Yancey R.N.MedicationsAC chemo treatments, last 04/05/2021. --11:58 05/15/21 Lucie Yancey R.N. ZyrTEC Allergy Oral (Tablet 10 mg) 1 tablet, daily. --11:59 05/15/21 Lucie Yancey R.N. Benadryl Allergy Oral 50 mg, 2x a day. --11:59 05/15/21 Lucie Yancey R.N.AllergiesProchlorperazine. --11:59 05/15/21 Lucie Yancey R.N.PROBLEMS:Asthma.Breast Cancer: (Invasive ductal carcinoma). --12:00 05/15/21 Lucie Yancey R.N.Medication/allergy information source: the patient. --12:01 05/15/21 Lucie Yancey R.N. 2 Clinical Report - Nurses [facility] Emergency Department [address] [place] [address] Phone #: ext- [phone] 05/15/2021 11:45 Patient: ALAINA HOUSTON Sex: F : 1990 Age: 31y ADDITIONAL SURGERIES: . Port placement. --12:00 05/15/21 Lucie Yancey R.N. History PAST MEDICAL HX: Immunizations: up-to-date and (Pt has not received COVID-19 vaccine). Last normal menstrual period- 03/25/2021; [facility], states 22 days late. SOCIAL HX: Never smoker. No alcohol use or drug use. She was offered HIV testing but declined. Patient education was provided. She was offered hepatitis C testing but declined. Patient education was provided. ( COVID screen negative). She has not traveled outside the [place] Infectious disease exposure: No infectious disease exposure. The patient was not exposed to Coronavirus. Mask placed on patient. Patient is not a known carrier of tuberculosis, hepatitis, HIV, MRSA or VRE. Patient is not a known carrier of CRE. SELF HARM ASSESSMENT: Self harm assessment was performed. The patient answered "no" to the question(s) "Do you have thoughts of harming or killing yourself?" and "Do you have a plan for harming or killing yourself?". ABUSE ASSESSMENT: Abuse assessment. The patient had positive responses to the question(s) "Do you feel safe in your home?". Abuse denied. No suspicion of abuse. No report of abuse. NUTRITIONAL RISK ASSESSMENT: The nutritional risk assessment revealed no deficiencies. FUNCTIONAL ASSESSMENT: Functional assessment: no impairments noted. LEARNING NEEDS ASSESSMENT: The learning needs assessment revealed no barriers. FALL RISK ASSESSMENT: Fall risk assessment completed. No risk factors identified. SKIN INTEGRITY ASSESSMENT: Skin integrity risk assessment completed. No skin integrity risk identified. --12:05/15/21 Lucie Yancey R.N. Interventions Identification band on patient. --12:05/15/21 Lucie Yancey R.N.PHYSICAL ASSESSMENTAmbulatory to room.GENERAL / NEURO / PSYCH: Alert. Oriented X 4. Appears in no acute distress.HEENT: Mucous membranes are pink.RESPIRATORY: Respirations not labored. Chest nontender. No chest wall tenderness. Inspiratorybilateral wheezes diffusely. ( Pt c/o palpitations).CVS: Cardiac rhythm: sinus tachycardia. Pulses within normal limits. Capillary refill less than 2 seconds.GI / : The patient has had intermittent episodes of nausea (denies currently). Abdomen soft and 3 Clinical Report - Nurses [facility] Emergency Department [address] [place] [address] Phone #: ext- [phone] 05/15/2021 11:45 Patient: ALAINA HOUSTON Sex: F : 1990 Age: 31y nontender. No emesis noted. EXTREMITIES: No lower extremity edema. SKIN: Skin is warm and dry. Normal skin turgor. Skin is non-tender. --12:03 05/15/21 Lucie Yancey R.N.NURSING PROGRESS NOTESCardiac monitor, NIBP monitor and pulse oximeter placed on patient; residential monitor- Lead II; monitoralarms on; monitor strip added to paper chart. Patient gowned. Reassurance given. Three patientidentifiers checked. Call light placed in reach. Side rails up x 2. Bed placed in lowest position. Brakesof bed on. Patient ready for evaluation- ED physician and PA notified. --12:03 05/15/21 Lucie Yancey R.N. EKG time: (late entry - 11:52 05/15/2021). EKG was ordered, performed by a nurse and shown to the ED physician. --12:03 05/15/21 Lucie Yancey R.N. 12:27 05/15/21. BP: 109/94 taken while lying. MAP: 99. HR: 109 (regular and normal rate). --12:28 05/15/21 Baltazar Clinton 12:05/15/21. BP: 106/83 taken while sitting. MAP: 90. HR: 102 (regular). --12:28 05/15/21 Baltazar Clinton 12:28 05/15/21. BP: 117/92 taken while standing. MAP: 100. HR: 121 (regular). --12:29 05/15/21 Baltazar Clinton 12:27 05/15/2021 Duoneb Neb TX Nebulizer 2 unit dose given. Given by the nurse. Allergies verified and confirmed 5 rights. Information reviewed with patient including reason for taking this medication, signs of allergic reaction and precautions. Verbalizes understanding. --12:37 05/15/21 Griselda Montilla R.N. 12:50 05/15/2021 Duoneb Neb TX discontinued due to improvement in patient condition. --12:50 05/15/21 Griselda Montilla R.N. Patient transported to CT by wheelchair with mask and greenhouse technician. --14:43 05/15/21 [place] pattern drum maker, YULISA Odell Tech1 Monitoring of patient in place. Patient gowned. Reassurance given. Rounding: Position: states comfortable. Proximity of possessions / care items: call light within easy reach. Set expectations: advised patient of rounding protocol timing and asked if they needed anything else at this time. The patient is calm and resting quietly. Patient waiting for CT results. --15:19 05/15/21 Griselda Montilla R.N. late entry - 13:10 05/15/21. Monitoring of patient in place. Patient gowned. Reassurance given. Rounding: Position: states comfortable. Proximity of possessions / care items: call light within easy reach. 4 Clinical Report - Nurses [facility] Emergency Department [address] [place] [address] Phone #: ext- [phone] 05/15/2021 11:45 Patient: ALAINA HOUSTON Sex: F : 1990 Age: 31ySet expectations: advised patient of rounding protocol timing and asked if they needed anything else at thistime. The patient is calm and resting quietly. Patient waiting for lab and radiology results. --15: Griselda Montilla R.N.13:24 05/15/2021 Site #1 started via IV in the left antecubital space with an 20g angiocath, with aseptictechnique and good blood return; one attempt. Saline lock flushed with 10 mL saline. --13:24 05/15/21Lucie Yancey R.N.13:29 05/15/2021 Two (2) unsuccessful IV access attempts including the right upper arm and antecubitalspace. Applied bandaid and manual pressure. --13:29 05/15/21 Lee Clinton entry - 14:15 05/15/21. Monitoring of patient in place. Patient gowned. Reassurance given.Rounding: Position: states comfortable. Proximity of possessions / care items: call light within easy reach.Set expectations: advised patient of rounding protocol timing and asked if they need ed anything else at thistime. The patient is calm and resting quietly. --15:19 05/15/21 Griselda Montilla R.N.16:07 05/15/2021 Started bag #1 1000 mL IV Fluids NS; bolus of 1000 mL wide open via site #1 via IVpump. Allergies verified and confirmed 5 rights. IV patency established. IV site checked: no pain, redness,or swelling. IV flushed thoroughly pre- and post-medication administration. Information reviewed withpatient including reason for taking this medication, signs of allergic reaction and precautions. Verbalizesunderstanding. --16:22 05/15/21 Griselda Montilla R.N.late entry - 16:17 05/15/21. Patient ID band checked for patient name and birthdate: patient confirmed.COVID-19 specimen obtained by RN via nasopharyngeal swab. Labeled in the presence of the patient andsent to lab. --16:22 05/15/21 Griselda Montilla R.N.15:30 05/15/21. BP: 103/60. MAP: 74. HR: 109. RR: 20. O2 saturation: 99%. --17:07 05/15/21 [employer], Odilo Fpjw730:30 05/15/21. BP: 110/68. MAP: 82. HR: 116. RR: 19. O2 saturation: 99%. --17:07 05/15/21 [employer], Odilo [id number] entry - 17:00 05/15/21. Monitoring of patient in place. Patient gowned. Reassurance given.Rounding: Position: states comfortable. Proximity of possessions / care items: call light within easy reach.Plug ins: assured IV pump plugged in; checked status of equipment in use; located all cords, tubes, andlines to prevent fall hazard. Set expectations: advised patient of rounding protocol timing and asked if theyneeded anything else at this time. The patient is calm and resting quietly. Patient waiting for disposition.--17:56 05/15/21 Griselda Montilla R.N.17:09 05/15/2021 IV Fluids NS via IV site #1 Discontinued: bag #1 infused. Total amount infused: 1000mlmL. IV patency established. IV site checked: no pain, redness, or swelling. IV flushed thoroughly. --17:148 Griselda Montilla R.N. 5 Clinical Report - Nurses [facility] Emergency Department [address] [place] [address] Phone #: ext- [phone] 05/15/2021 11:45 Patient: ALAINA HOUSTON [facility]#: [id number] Sex: F : 1990 Age: 31y 17:13 05/15/2021 Augmentin (Amoxicillin-Pot Clavulanate) PO Tablets 875 mg given. Allergies verified and confirmed 5 rights. Information reviewed with patient including reason for taking this medication, signs of allergic reaction and precautions. Verbalizes understanding. --17:13 05/15/21 Griselda Montilla R.N. 17:14 05/15/2021 Started bag #1 1000 mL IV Fluids NS; bolus of 1000 mL wide open via site #1 via IV pump. Allergies verified and confirmed 5 rights. IV patency established. IV site checked: no pain, redness, or swelling. IV flushed thoroughly pre- and post-medication administration. Information reviewed with patient including reason for taking this medication, signs of allergic reaction and precautions. Verbalizes understanding. --17:14 05/15/21 Griselda Montilla R.N. 17:55 05/15/2021 IV Fluids NS via IV site #1 Discontinued: bag #2 infused. Total amount infused: 1000ml mL. IV patency established. IV site checked: no pain, redness, or swelling. IV flushed thoroughly. --17:55 05/15/21 Griselda Montilla R.N. Monitoring of patient in place. Patient gowned. Reassurance given. Rounding: Position: states comfortable. Proximity of possessions / care items: call light within easy reach. Plug ins: assured IV pump plugged in; checked status of equipment in use; located all cords, tubes, and lines to prevent fall hazard. Set expectations: advised patient of rounding protocol timing and asked if they needed anything else at this time. The patient is calm and resting quietly. Call light placed in reach. Patient waiting for disposition. --17:57 05/15/21 Griselda Montilla R.N. 18:02 05/15/2021 Tessalon Perles (Benzonatate) PO Capsules 200 mg given. Allergies verified and confirmed 5 rights. Information reviewed with patient including reason for taking this medication, signs of allergic reaction and precautions. Verbalizes understanding. --18:17 05/15/21 Griselda Montilla R.N. 18:02 05/15/2021 Site #1 removed upon discharge. Catheter intact. Bandage applied. --18:17 05/15/21 Griselda Montilla R.N.DISPOSITION / DISCHARGE Woodson Coma Scale: 15- eyes open- spontaneous (4); best verbal response- oriented (5); best motor response- obeys commands (6). Departure time: late entry - 18:14 05/15/2021. Condition at departure: improved and stable. No learning barriers present. Discharge instructions provided and reviewed with the patient. Reviewed warnings. Reviewed medication(s) side effects, precautions, dosing and course information. Prescription(s) sent electronically to pharmacy (Tessalon Perles, Augementin, Zithromax, Albuterol HFA). Reviewed referral to a primary care physician for followup. Patient verbalized understanding. Written instructions provided in Palauan. The patient was discharged by the physician. She was discharged home and accompanied by spouse. She left ambulatory and via private vehicle. Patient driving. --18:20 05/15/21 Griselda Montilla R.N. 18:10 05/15/21. BP: 115/77. MAP: 89. HR: 112. RR: 18. O2 saturation: 99% on room air. Temp: 98 F (oral). Pain level now: 0/10. --18:20 05/15/21 Griselda Montilla R.N. 6 Clinical Report - Nurses [facility] Emergency Department [address] [place] [address] Phone #: [phone]- [phone] 05/15/2021 11:45 Patient: ALAINA HOUSTON Sex: F : 1990 Age: 31y late entry - 18:06 05/15/21. ( aware of vital signs prior to d/c). --18:21 05/15/21 Griselda Montilla R.N.Locked/Released at 05/15/2021 18:22 by Griselda Montilla R.N. Name Value Range Interpretation Code Description Data Aura rce(s) Supporting Document(s) ID Date Data Source [id number] 05/15/2021 11:48:00 AM EDT [facility] 1 Clinical Report - Physicians/Mid Levels [facility] Emergency Department [address] [place] [address] Phone #: ext- [phone] 05/15/2021 11:45 [facility]ST[id number] Sex: F : 1990 Age: 31y Time Seen: 12:05 05/15/2021; initial patient contact, initial documentation. Arrived- By private vehicle. Historian- patient. Disposition decision: 18:10 05/15/2021.HISTORY OF PRESENT ILLNESS Chief Complaint: PALPITATIONS. This started 1 month ago and is still present (worse 5 days ago). Onset during exertion. No history of caffeine use prior to onset, decongestants use prior to onset, cocaine use prior to onset or amphetamine use prior to onse t. It was gradual in onset and has been intermittent. It is described as a fast and pounding heart beat. She complains of dizziness and weakness. Modifying factors- worsened by movement and walking. Relieved by rest. No chest pain or discomfort, sweating episodes, fainting episodes or tingling. No muscle spasms. She has had difficulty breathing and dizziness. ( patient has invasive ductal breast cancer and had finished a cycle of chemotherapy on March because she had low neutrophils. she has been given neupogen x 4, last dose was last week. she has been having palpitations but has gotten worse in the last week associated with shortness of breath. she also has seasonal asthma and has been wheezing).REVIEW OF SYSTEMSLast normal menstrual period- 03/25/21. No fever, chills, cough, orthopnea or calf pain. No headache, sorethroat, blurred vision, nausea or abdominal pain. No black stools, difficulty with urination, skin rash,depression or trouble sleeping. No vomiting, diarrhea or bloody stools. The patient has not had a poorappetite. All other systems reviewed and are negative.PAST HISTORYSee nurses notes. Problems: Asthma. Breast Cancer. (Invasive ductal carcinoma ). Additional Surgeries: . Port placement. Medications: Benadryl Allergy Oral 50 mg, 2x a day. ZyrTEC Allergy Oral (Tablet 10 mg) 1 tablet, daily. AC chemo treatments, last 04/05/2021. Allergies: Prochlorperazine.SOCIAL HISTORY 2 Clinical Report - Physicians/Mid Levels [facility] Emergency Department [address] [place] [address] Phone #: ext- [phone] 05/15/2021 11:45 Patient: ALAINA HOUSTON [facility]#: [id number] Sex: F : 1990 Age: 31y Never smoker. No alcohol use or drug use.ADDITIONAL NOTESThe nursing notes have been reviewed.PHYSICAL EXAMVital Signs: 05/15/2021 11:56 BP: 114/83. MAP: 93. HR: 113. RR: 18. O2 saturation: 98% on room air.Temp: 98.7 F. Pain level now: 210. Have been reviewed. Oxygen saturation normal.Appearance: Alert. Oriented X3. No acute distress.Eyes: Pupils equal, round and reactive to light. Eyes normal inspection.ENT: Pharynx normal.Neck: Normal inspection. Neck supple.CVS: Tachycardia. No cardiac murmur or extra heart sounds.Respiratory: Expiratory moderate bilateral wheezes posteriorly. Chest nontender.Abdomen: Soft and nontender. Bowel sounds normal. No organomegaly. No mass.Back: Normal external inspection. No CVA tenderness.Skin: Skin warm and dry. Normal skin color. No rash. Normal skin turgor.Extremities: Extremities exhibit normal ROM. No lower extremity edema.Neuro: Oriented X 3.LABS, X-RAYS, AND EKGEKG: EKG time: 12:16 05/15/2021. No acute process. No acute ischemia. Narrow- complextachycardia (102 ventricular rate). Sinus tachycardia. Normal P waves. Normal QRS complex.Non-specific ST segment / T wave abnormalities. Prior EKG unavailable. The study has beeninterpreted contemporaneously. The EKG appears to be a good tracing. Interpretation time: 11:.Laboratory Tests: COVID-19 CAH: (LAISHA: 05/15/2021 16:40) ( MsgRcvd 05/15/2021 17:02) Final results Test Result F lag Units (Reference) COVID-19 NOT DETECTED COVID-19 REENTER NOT DETECTED { PROCEDURAL CONTROL VALID KIT LOT # [id number] 05/15/21.170.JSK. KIT EXP DATE _07/16/21 05/15/21.170.JSK. NORMAL RANGE IS NOT DETECTEDThe COVID-19 assay is a rapid molecular in vitro diagnostic testutilizing an isothermal nucleic acid amplification technology for thequalitative detection of nucleic acid from the SARS-CoV-2 viral RNA in directnasal or nasopharyngeal swabs. Testing should be performed within the first 7days of the onset of symptoms.NEGATIVE RESULTS SHOULD BE TREATED PRESUMPTIVE AND, IF INCONSISTENT WITHCLINICAL SIGNS AND SYMPTOMS OR NECESSARY FOR PATIENT MANAGEMENT, SHOULD BETESTED WITH DIFFERENT AUTHORIZED OR CLEARED MOLECULAR TESTS. NEGATIVE RESULTSDO NOT PRECLUDE SARS-CoV-2 INFECTION AND SHOULD NOT BE USED THE SOLE BASISFOR PATIENT MANAGEMENT DECISIONS. CT CTA CHEST NON-CORONARY W CON INC PP: (LAISHA: 05/15/2021 14:21) ( MsgRcvd 05/15/2021 15:26) In Progress CT CTA CHEST NON-CORONARY W CON INC PP Reason(s): hx of breast cahncer sob, tachycardia r/o PE TRANSPORTATION: WC IV? IV?(Yes) O2? Oxygen?(No) Ro Test Result Flag Units (Reference) 3 Clinical Report - Physicians/Mid Levels [facility] Emergency Department [address] [place] [address] Phone #: ext- [phone] 05/15/2021 11:45 Patient: ALAINA HOUSTON Sex: F : 1990 Age: 31y [place] [address] PHONE: [phone] FAX: [phone] -- Name .................. : CELSO De Leon Acct Number.................. : [id number] ROOM. ................. : TR-03 MR Number ................... : [id number] Stay type ............. : E/R Discharge Date......... ... : Admit Date ......... : 05/15/21 [facility] .................... [facility] Date of ....... : 1990 Family Phys ................... : NO PCP Phone .................. : [phone] Age ................................ : 31 Film# .................. .:[id number] Sex ................................. : F -- Unsigned transcriptions are preliminary reports and do not represent a medical or legal document CT CTA CHEST NON-CORONARY Christopher Ibarra [id number] COMPLETE:05/15/21 15:04 KAYLI [id number] Reason(s): hx of breast cancer sob, tachycardia r/o PE -- -- -- -- CT CHEST WITH IV CONTRAST -- INDICATION: History of breast cancer, shortness of breath, tachycardia. Rule out pulmonary -- embolism. COMPARISON: Chest x-ray 05/15/2021 CONTRAST: 75 mL IsoVue 370 -- One or more of the following dose reduction techniques were utilized in effectively lowering the patient's radiation dose for this examination: Automated Exposure Control, Adjustment of the mA and/or kV according to patient size, or Iterative reconstruction. -- -- FINDINGS: -- VASCULAR: There is good visualization of the pulmonary arterial tree into the segmental branch level. No pulmonary embolic disease is identified. -- LUNGS: No pulmonary nodules or masses. Geographic patchy groundglass opacity left upper lobe in a perihilar distribution. This measures up to 25 mm. Additional smaller groundglass opacities left lower lobe. -- PLEURA AND PERICARDIUM: No pleural or pericardial effusions. -- MEDIASTINUM AND TANNER: No mediastinal or hilar adenopathy or masses. -- CHEST WALL: No axillary adenopathy. -- SKELETAL: Skeletal structures are within normal limits. -- UPPER ABDOMEN: Unremarkable. -- -- IMPRESSION: -- -- Page 1of 2 [place] [address] PHONE: [phone] FAX: [phone] -- Name .................. : CELSO De Leon Acct Number.................. : [id number] Clinical Report - Physicians/Mid Levels [facility] Emergency Department [address] [place] [address] Phone #: ext- [phone] 05/15/2021 11:45 Patient: ALAINA HOUSTON Sex: F : 1990 Age: 31y ROOM. ................. : TR-03 MR Number ................... : [id number] Stay type ............. : E/R Discharge Date......... ... : Admit Date ......... : 05/15/21 Admit Phys .................... : [facility] Date of ....... : 1990 Family Phys ................... : NO PCP Phone .................. : [phone] Age ................................ : 31 Film# .................. .:[id number] Sex ................................. : F -- Unsigned transcriptions are preliminary reports and do not represent a medical or legal document CT CTA CHEST NON-CORONARY W C 84113 COMPLETE:05/15/21 15:04 KAYLI 01674 Reason(s): hx of breast cancer sob, tachycardia r/o PE -- -- 1. No pulmonary embolism. 2. Groundglass parenchymal opacities left upper lobe and left lower lobe. These are nonspecific. Differential diagnosis includes pneumonia and pneumonitis. Covid is a possibility. -- -- Electronically Reviewed and Signed By OSCAR NEUMANN JWS -- Transcribe Initials: MANOJ , Transcribe Date: 05/15/21 15:24, Dictation Date: -- -- <<REPDIST>> -- -- -- -- Page 2of 2 --CT CTA AORT ILIOFEM RNOFFW: (LAISHA: 05/15/2021 14:18) ( [facility] 05/15/2021 14:20) CanceledReason(s): shortness of breath hx of breast cancer tachycardia r/o PEReason(s): shortness of breath hx of breast cancer tachycardia r/o PETRANSPORTATION: WC IV? IV?(Yes) O2? Oxygen?(Yes) RBeta-HCG, Quant Serum: (LAISHA: 05/15/2021 12:22) ( [facility] 05/15/2021 14:07) Final results Test Result Flag Units (Reference) HCG QUANT 4.8 mIU/mL Interpretation: Less than 5 mU/mL: Negative6-10 mU/mL: Borderline (suggest repeat in 48 hours) >10: PositiveApprox HCG range (mU/mL) Weeks post LMP 5.4-708 mU/mL 3-4 Eqdpc913- 46822 mU/mL 5-6 Weeks 4059-167676 mU/mL 7-8 Wjcgt38536-640044 mU/mL 9-10 Weeks 24700-27524 mU/mL 12-14 Yywau64147-78111 mU/mL 15-16 Weeks 8240-91307 mU/mL 17-18 WeeksBeta-HCG, Qual Serum: (LAISHA: 05/15/2021 12:22) ( [facility] 05/15/2021 13:08) Final results Test Result Flag Units (Reference) HCG SERUM QUAL INDETERMI (NORMAL: NEGAT HCG SERUM QL REENTER INDETERMI (NORMAL: NEGAT { KIT LOT # [id number] ){ KIT EXP DATE09/21/22 ){ PROCEDURAL CONTROL VALID)CBC w Diff: (LAISHA: 05/15/2021 12:22) ( MsgRcvd 05/15/2021 12:37) Final results 5 Clinical Report - Physicians/Mid Levels [facility] Emergency Department [address] [place] [address] Phone #: ext- [phone] 05/15/2021 11:45 Patient: ALAINA HOUSTON Sex: F : 1990 Age: 31y Test Result Flag Units (Reference) CBC W/AUTOMATED DIFF COMPLETE BLOOD COUNT WBC 6.8 10/uL (4.2 - 11.0) RBC 4.24 10/uL (4.20 - 5.40) HEMOGLOBIN 12.4 g/dL (12.0 - 16.0) HEMATOCRIT 37.2 % (37.0 - 47.0) MCV 87.7 fL (81.0 - 101) MCH 29.2 pg (27.0 - 34.0) MCHC 33.3 g/dL (31.0 - 36.0) RDW 14.9 H % (11.5 - 14.5) PLATELETS 208 10/uL (150 - 450) MPV 9.0 fL (7.4 - 10.4) NEUT 27.3 L % (37.0 - 80.0) LYMPH 31.0 % (25.0 - 40.0) MONO 8.8 H % (3.0 - 8.0) EOS 31.3 H % (0.0 - 7.0) BASO 0.7 % (0.0 - 2.5) %IG 0.9 H % (0.0 - 0.0) %NRBC 0.3 H % (0.0 - 0.0) #NEUT 1.86 L 10/uL (2.00 - 6.90) #LYMPH 2.11 10/uL (0.60 - 3.40) #MONO 0.60 10/uL (0.00 - 0.90) #EOS 2.13 H 10/uL (0.00 - 0.70) #BASO 0.05 10/uL (0.00 - 0.20) #IG 0.06 10/uL (0.00 - 0.10) #NRBC 0.02 H 10/uL (0.00 - 0.00) MANUAL DIFF NOT INDICATED RBC MORPH NOT INDICATEDCMP: (LAISHA: 05/15/2021 12:22) ( MsgRcvd 05/15/2021 13:09) Final results Test Result Flag Units (Reference) COMPREHENSIVE METABOLIC PANEL COMPREHENSIVE METABOLIC PANEL SODIUM 139 mEq/L (134 - 153) POTASSIUM 4.3 mEq/L (3.6 - 5.0) CHLORIDE 103 mEq/L (98 - 107) CO2 24 MEQ/L (22 - 30) GLUCOSE 93 MG/DL (70 - 99) BUN 11 MG/DL (7 - 21) CREATININE 0.7 MG/DL (0.7 - 1.5) BUN/CREAT 16 (8 - 27) TOTAL PROTEIN 7.3 G/DL (6.3 - 8.2) ALBUMIN 4.7 G/DL (3.9 - 5.0) GLOBULIN 2.6 GM/DL (2.4 - 3.2) A/G RATIO 1.8 (0.8 - 2.0) CALCIUM 9.8 MG/DL (8.4 - 10.2) TOTAL BILI <0.7 MG/DL (0.2 - 1.3) ALKALINE PHOS 87 U/L (38 - 126) SGOT/AST 23 U/L (5 - 40) SGPT/ALT 38 U/L (7 - 56) ANION GAP 12.0 mmol/L (8.0 - 16.0) AGE 31 yrs NON-AA GFR >60 mL/min AFR AMER GFR >60 mL/min Male GFR Interprentation 20-49 yrs >60 mL/min Nljtzz28-61 yrs >56 mL/min Normal 60-69 yrs >49 mL/min Normal 70-79yrs>42 mL/min Normal 80 and above >35 mL/min Normal Female GFR 6 Clinical Report - Physicians/Mid Levels [facility] Emergency Department [address] [place] [address] Phone #: ext- [phone] 05/15/2021 11:45 Patient: ALAINA HOUSTON Sex: F : 1990 Age: 31yInterpretation 20-39 yrs >60 mL/min Normal 40-49 yrs >58 mL/minNormal 50-59 yrs >51 mL/min Normal 60-69 yrs >45 mL/min Zhtfhi54-87 yrs >39 mL/min Normal 80 and above >32 mL/min NormalLipase: (LAISHA: 05/15/2021 12:22) ( MsgRcvd 05/15/2021 13:09) Final results Test Result Flag Units (Reference) LIPASE 31 U/L (13 - 60)PT/PTT: (LAISHA: 05/15/2021 12:22) ( MsgRcvd 05/15/2021 13:01) Final results Test Result Flag Units (Reference) PROTIME 12.5 SECONDS (11.0 - 15.5) INR 0.92 L (0.93 - 1.23) PTT 39.5 H SECONDS (24.8 - 36.7) \\BLDo\\INR INTERPRETATION\\BLDx\\ Therapeutic range for Coumadin andrelated oral anticoagulants. - International Normalized Ratio (INR): 2.0 - 3.0 for VenousThrombosis, Pulmonary Embolus, Tissue heart valves, Acute [place] Atrial Fibrillation, Valvular heart diseaseand recurrent Systemic Embolism. - International Normalized Ratio (INR): 2.5 - 3.5 forMechanical Prosthetic valve.Troponin-T: (LAISHA: 05/15/2021 12:22) ( MsgRcvd 05/15/2021 13:17) Final results Test Result Flag Units (Reference) TROPONIN T <0.01 NG/ML (0.00 - 0.10) TROPONIN T0.1 ng/ml Recommended as the clinical threshold value forTroponin T.EKG: (LAISHA: 05/15/2021 12:07) ( MsgRcvd 05/15/2021 14:59) In ProgressChest Portable 1 View: (LAISHA: 05/15/2021 12:07) ( MsgRcvd 05/15/2021 13:54) Final results Exam CHEST PORTABLE [facility] [address] [place] [address] PHONE: [phone] FAX: [phone] Name .................. : CELSO De Leon Acct Number.................. : [id number] ROOM. ................. : TR-03 MR Number ................... : [id number] Stay type ............. : E/R Discharge Date......... ... : Admit Date ......... : 05/15/21 Admit Phys .................... : [facility] Date of ....... : 1990 Family Phys ................... : Phone .................. : [phone] Age ................................ : 31 Film# .................. .:[id number] Sex ................................. : F Unsigned transcriptions are preliminary reports and do not represent a medical or legal document CHEST PORTABLE [id number] COMPLETE:05/15/21 12:07 Reason(s): Shortness of Breath PORTABLE CHEST SINGLE VIEW 12:26 PM HISTORY: Shortness of breath COMPARISON: None. 7 Clinical Report - Physicians/Mid Levels [facility] Emergency Department [address] [place] [address] Phone #: ext- [phone] 05/15/2021 11:45 Patient: ALAINA HOUSTON Sex: F : 1990 Age: 31y FINDINGS: The heart is not enlarged. Pulmonary vessels are within normal limits. There is a left internal jugular centimeters catheter present with tip projected over the SVC. Multiple EKG wires are projected over the chest. Lungs are clear. No pulmonary edema. No pleural effusions or pneumothorax. IMPRESSION: No acute disease. Electronically Reviewed and Signed By Kamran Miller MD , 05/15/21 13:53, JWDaniel Transcribe Initials: SSR, Transcribe Date: 05/15/21 12:38, Dictation Date: Copy for: 010 EMERGENCY SRV Copy for: EMERGENCY DEPT via [facility] Copy for: 710 MED REC Page 1 of 1.PROGRESS AND PROCEDURESCourse of Care: 13:46 05/15/21. Patient's CBC is normal. CMP as well as the troponin is negative. shefeels better after duoneb. test is indeterminate. LMP was 03/25/21 and she has been sexuallyactive. will do quantitative HCG 15:54 05/15/21. quantitative HCG was 4.8 negative fro . she had a CT of the chest which did not show PE but had ground glass opacities on the left lower lobe and left upper lobe , cannot rule out COVID 16:10 05/15/21. Patient is immunocompromised and has not been drinking enough. she is still tachycardic. will give 1 liter of normal saline. she ambulated well with O2 sat remaining in the 98% on RA. Patient counseled in person regarding the patient's stable condition, test results, diagnosis and need for follow-up. Patient agrees with plan of care. 18:09. Disposition: Discharged home in good and improved condition (18:10). Condition: good and stable. Discharge decision based on the following: patient's condition is stable; patient's exam is improved; minimally abnormal test results; stable condition on repeat evaluation; social support is adequate; 8 Clinical Report - Physicians/Mid Levels [facility] Emergency Department [address] [place] [address] Phone #: ext- [phone] 05/15/2021 11:45 ---- Patient: ALAINA HOUSTON [facility]#: [id number] Sex: F : 1990 Age: 31y transportation is available; follow-up is available; clinical impression is consistent with outpatient treatment.CLINICAL IMPRESSION Sinus tachycardia. Mild persistent asthma with an acute exacerbation and pneumonia. No status asthmaticus. Bacterial pneumonia.INSTRUCTIONS (blood work were unremarkable. you have a pneumonia on the left . take the zithromax and augmentin as prescribed. increase oral fluids. use the albuterol, inhaler as needed for wheezing. follow up with your doctor in 3 days if not better). Your Current Medications: Your current home medications have been reviewed. CONTINUE TAKING THE FOLLOWING MEDICATIONS: AC chemo treatments, last 04/05/2021*. Benadryl Allergy Oral : 50 mg 2x a day. ZyrTEC Allergy Oral : Tablet 10 mg, 1 tablet daily. Prescription Medications: Tessalon Perles 100 mg capsule Take 2 capsule three times a day for 7 days -- as needed for cough. Dispense 42 capsule. Refills: 0. Substitution permitted. Note to Pharmacy - USE Rx DISCOUNT CARD: $83.23, BIN:[id number], PCN:BERNARDINO, Group:[id number], ID:[id number]. [facility] - [address] [place] [address] ; [place] [address]. . Augmentin 875 mg-125 mg tablet Take 1 tablet twice a day for 7 days -- Dispense 14 tablet. Refills: 0. Substitution permitted. Note to Pharmacy - USE Rx DISCOUNT CARD: $83.23, BIN:[id number], EUNN:BERNARDINO, Group:EMR, ID:[id number]. [facility] - [facility] ; [place] [address]. FaxNumber: [phone]. Zithromax Z-Jesse 250 mg tablet Take 2 tablet once a day for 5 days -- then 1 tab daily x 4 days. Dispense 1 packet. Refills: 0. Substitution permitted. Note to Pharmacy - USE Rx DISCOUNT CARD: $80.55, BIN:[id number], EUNN:BERNARDINO, Group:EMR, ID:[id number]. [facility] - [facility] ; [place] [address]. . albuterol sulfate HFA 90 mcg/actuation aerosol inhaler Inhale 2 puff four times a day for 30 days -- as needed for wheezing. Dispense 18 gram. Refills: 0. Substitution permitted. Note to Pharmacy - USE Rx DISCOUNT CARD: $8.03, BIN:[id number], PCN:BERNARDINO, Group:EMR, ID:[id number]. 9 Clinical Report - Physicians/Mid Levels [facility] Emergency Department [address] [place] [address] Phone #: ext- [phone] 05/15/2021 11:45 Patient: ALAINA HOUSTON Sex: F : 1990 Age: 31y Pharmacy - [facility] - [address] [facility] ; [place] [id number]. . Follow-up: Follow up with your healthcare provider in three if not better. Reason for referral: evaluation. Summary of care provided to patient via paper.(Electronically signed by Karina Ariza 05/16/2021 03:24) Name Value Range Interpretation Code Description Data Aura rce(s) Supporting Document(s) ID Date Data Source [id number] 05/15/2021 07:48:00 [place] [address] RESPIRATORY CARE REPORT ==== ---------NAME------- NUMBER SEX AGE ADMIT DISC. XRAY# F/C MARTHA De Leon [id number] F 31 05/15/21 05/15/21 [id number] NA E/R DATE OF : 1990 M/R# [id number] PH#: [phone] TR-03 LOCATION: EMERGENCY DEPT EKG 10977 COMP LETE:05/15/21 14:59 ED 14421 PHYSICIAN: THAO Name Value Range Interpretation Code Description Data Aura rce(s) Supporting Document(s) ID Date Data Source [id number] 05/15/2021 05:40:00 [place] [address] PHONE: [phone] FAX: [phone] Name .................. : CELSO De Leon Acct Number.................. : [id number] ROOM. ................. : TR-03 MR Number ................... : [id number] Stay type ............. : E/R Discharge Date......... ... : Admit Date ......... : 05/15/21 Admit Phys .................... : CHANLIECCO Date of ....... : 1990 Family Phys ................... : NO PCP Phone .................. : [phone] Age ................................ : 31 Film# .................. .:[id number] Sex ................................. : F Unsigned transcriptions are preliminary reports and do not represent a medical or legal document CT CTA CHEST NON-CORONARY W C 25367 COMPLETE:05/15/21 15:04 KAYLI 07837 Reason(s): hx of breast cancer sob, tachycardia r/o PE CT CHEST WITH IV CONTRAST INDICATION: History of breast cancer, shortness of breath, tachycardia. Rule out pulmonary embolism. COMPARISON: Chest x-ray 05/15/2021 CONTRAST: 75 mL IsoVue 370 One or more of the following dose reduction techniques were utilized in effectively lowering the patient's radiation dose for this examination: Automated Exposure Control, Adjustment of the mA and/or kV according to patient size, or Iterative reconstruction. FINDINGS: VASCULAR: There is good visualization of the pulmonary arterial tree into the segmental branch level. No pulmonary embolic disease is identified. LUNGS: No pulmonary nodules or masses. Geographic patchy groundglass opacity left upper lobe in a perihilar distribution. This measures up to 25 mm. Additional smaller groundglass opacities left lower lobe. PLEURA AND PERICARDIUM: No pleural or pericardial effusions. MEDIASTINUM AND TANNER: No mediastinal or hilar adenopathy or masses. CHEST WALL: No axillary adenopathy. SKELETAL: Skeletal structures are within normal limits. UPPER ABDOMEN: Unremarkable. IMPRESSION: Page 1 of 2 [facility] [address] [place] [address] PHONE: [phone] FAX: [phone] Name .................. : CELSO De Leon Acct Number.................. : [id number] ROOM. ................. : TR-03 MR Number ................... : [id number] Stay type ............. : E/R Discharge Date......... ... : Admit Date ......... : 05/15/21 Admit Phys .................... : THAO Date of ....... : 1990 Family Phys ................... : NO PCP Phone .................. : [phone] Age ................................ : 31 Film# .................. .:[id number] Sex ................................. : F Unsigned transcriptions are preliminary reports and do not represent a medical or legal document CT CTA CHEST NON-CORONARY [place] [address] COMPLETE:05/15/21 15:04 KAYLI 48030 Reason(s): hx of breast cancer sob, tachycardia r/o PE 1. No pulmonary embolism. 2. Groundglass parenchymal opacities left upper lobe and left lower lobe. These are nonspecific. Differential diagnosis includes pneumonia and pneumonitis. Covid is a possibility. Electronically Reviewed and Signed By Kamran Miller MD , 05/15/21 17:40, SANTA Transcribe Initials: MANOJ , Transcribe Date: 05/15/21 15:24, Dictation Date: Copy for: 010 EMERGENCY SRV Copy for: EMERGENCY DEPT via modem Copy for: 710 MED REC Page 2 of 2 Name Value Range Interpretation Code Description Data Aura rce(s) Supporting Document(s) ID Date Data Source [id number] 05/15/2021 04:40:00 PM EDT [facility] Name Value Range Interpretation Code Description Data Aura rce(s) Supporting Document(s) COVID19 Case rprt NOT DETECTED [facility] This lab was ordered by [facility] and reported by [facility]. ID Date Data Source [id number] 05/15/2021 05:01:00 PM EDT [facility] NOT DETECTEDNOT DETECTED{ PROC EDURAL CONTROL VALID KIT LOT # [id number] 05/15/21.1700.JSK. KIT EXP DATE _07/16/21 05/15/21.1700.JSK. NORMAL RANGE IS NOT DETECTEDThe COVID-19 assay is a rapid molecular in vitro diagnostic testutilizing an isothermal nucleic acid amplification technology for thequalitative detection of nucleic acid from the SARS-CoV-2 viral RNA in directnasal or nasopharyngeal swabs. Testing should be performed within the first 7days of the onset of symptoms.NEGATIVE RESULTS SHOULD BE TREATED PRESUMPTIVE AND, IF INCONSISTENT WITHCLINICAL SIGNS AND SYMPTOMS OR NECESSARY FOR PATIENT MANAGEMENT, SHOULD BETESTED WITH DIFFERENT AUTHORIZED OR CLEARED MOLECULAR TESTS. NEGATIVE RESULTSDO NOT PRECLUDE SARS-CoV-2 INFECTION AND SHOULD NOT BE USED THE SOLE BASISFOR PATIENT MANAGEMENT DECISIONS. Name Value Range Interpretation Code Description Data Aura rce(s) Supporting Document(s) ID Date Data Source [id number] 05/15/2021 01:53:00 PM EDT [facility] [address] [place] [address] PHONE: [phone] FAX: [phone] Name .................. : CELSO De Leon Acct Number.................. : [id number] ROOM. ................. : [facility] Number ................... : [id number] Stay type ............. : E/R Discharge Date......... ... : Admit Date ......... : 05/15/21 Admit Phys .................... : [facility] Date of ....... : 1990 Family Phys ................... : Phone .................. : [phone] Age ................................ : 31 Film# .................. .:[id number] Sex ................................. : F Unsigned transcriptions are preliminary reports and do not represent a medical or legal document CHEST PORTABLE [id number] COMPLETE:05/15/21 12:07 Reason(s): Shortness of Breath PORTABLE CHEST SINGLE VIEW 12:26 PM HISTORY: Shortness of breath COMPARISON: None. FINDINGS: The heart is not enlarged. Pulmonary vessels are within normal limits. There is a left internal jugular centimeters catheter present with tip projected over the SVC. Multiple EKG wires are projected over the chest. Lungs are clear. No pulmonary edema. No pleural effusions or pneumothorax. IMPRESSION: No acute disease. Electronically Reviewed and Signed By Kamran Miller MD , 05/15/21 13:53, SANTA Transcribe Initials: SSR, Transcribe Date: 05/15/21 12:38, Dictation Date: Copy for: 010 EMERGENCY SRV Copy for: EMERGENCY DEPT via modem Copy for: 710 MED REC Page 1 of 1 Name Value Range Interpretation Code Description Data Aura rce(s) Supporting Document(s) ID Date Data Source [id number] 05/15/2021 02:06:00 PM EDT [facility] Name Value Range Interpretation Code Description Data Aura rce(s) Supporting Document(s) Choriogonadotropin.intact [Units/volume] in Serum or Plasma 4.8 mIU/m L [facility] Interpr etation: Less than 5 mU/mL: Negative 6-10 mU/mL: Borderline (suggest repeat in 48 hours) >10: Positive Approx HCG range (mU/mL) Weeks post LMP 5.4-708 mU/mL 3-4 Weeks 217-18632 mU/mL 5-6 Weeks 4059-666348 mU/mL 7-8 Weeks 33952-067775 mU/mL 9-10 Weeks 27264-83686 mU/mL 12-14 Weeks 72943-05647 mU/mL 15-16 Weeks 8240- 35666 mU/mL 17-18 Weeks ID Date Data Source [id number] 05/15/2021 01:17:00 PM EDT [facility] Name Value Range Interpretation Code Description Data Aura rce(s) Supporting Document(s) TROPONIN T <0.01 NG/ML 0.00 - 0.10 [facility] TROPONIN T0.1 ng/ml Recommended as the c linical threshold value forTroponin T. ID Date Data Source [id number] 05/15/2021 01:08:00 PM T [facility] Name Value Range Interpretation Code Description Data Aura rce(s) Supporting Document(s) Lipase [Enzymatic activity/volume] in Serum or Plasma 31 U/L 13 - 60 [facility] ID Date Data Source [id number] 05/15/2021 01:08:00 PM EDT [facility] Name Value Range Interpretation Code Description Data Aura rce(s) Supporting Document(s) COMPREHENSIVE METABOLIC PANEL [facility] COMPREHENSIVE METABOLIC PANEL Sodium [Moles/volume] in Serum or Plasma 139 mEq/L 134 - 153 [facility] Potassium [Moles/volume] in Serum or Plasma 4.3 mEq/L 3.6 - 5.0 [facility] Chloride [Moles/volume] in Serum or Plasma 103 mEq/L 98 - 107 [facility] Carbon dioxide, total [Moles/volume] in Serum or Plasma 24 MEQ/L 22 - 30 [facility] Glucose [Mass/volume] in Serum or Plasma 93 MG/DL 70 - 99 [facility] BUN 11 MG/DL 7 - 21 [facility] Creatinine [Mass/volume] in Serum or Plasma 0.7 MG/DL 0.7 - 1.5 [facility] BUN/CREAT 16 8 - 27 [facility] al Protein [Mass/volume] in Serum or Plasma 7.3 G/DL 6.3 - 8.2 [facility] Albumin [Mass/volume] in Serum or Plasma 4.7 G/DL 3.9 - 5.0 [facility] Globulin [Mass/volume] in Serum by calculation 2.6 GM/DL 2.4 - 3.2 [facility] A/G RATIO 1.8 0.8 - 2.0 [facility] Calcium [Mass/volume] in Serum or Plasma 9.8 MG/DL 8.4 - 10.2 [facility] Bilirubin.total [Mass/volume] in Serum or Plasma <0.7 MG/DL 0.2 - 1.3 [facility] Alkaline phosphatase [Enzymatic activity/volume] in Serum or Plasma 87 U/L 38 - 126 [facility] Aspartate aminotransferase [Enzymatic activity/volume] in Serum or Plasma 23 U/L 5 - 40 [facility] Alanine aminotransferase [Enzymatic activity/volume] in Seru m or Plasma 38 U/L 7 - 56 [facility] Anion gap 3 in Serum or Plasma 12.0 mmol/L 8.0 - 16.0 [facility] AGE 31 yrs [facility] Hospit al NON-AA GFR >60 mL/min [facility] Hosp ital AFR AMER GFR >60 mL/min [facility] Ho spital Male GFR In terprentation 20-49 yrs >60 mL/min Normal 50-59 yrs >56 mL/min Normal 60-69 yrs >49 mL/min Normal 70-79yrs >42 mL/min Normal 80 and above >35 mL/min Normal Female GFR Interpretation 20-39 yrs >60 mL/min Normal 40-49 yrs >58 mL/min Normal 50-59 yrs >51 mL/min Normal 60-69 yrs >45 mL/min Normal 70-79 yrs >39 mL/min Normal 80 and above >32 mL/min Normal ID Date Data Source [id number] 05/15/2021 01:06:00 PM EDT [facility] Name Value Range Interpretation Code Description Data Aura rce(s) Supporting Document(s) HCG SERUM QUAL INDETERMI NORMAL: NEGATIVE [facility] HCG SERUM QL REENTER INDETERMI NORMAL: NEGATIVE [facility] { KIT LOT # [id number] ){ KIT EXP DATE 09/21/22 ){ PROCEDURAL CONTROL VALID ) ID Date Data Source [id number] 05/15/2021 01:01:00 PM EDT [facility] Name Value Range Interpretation Code Description Data Aura rce(s) Supporting Document(s) Prothrombin time (PT) 12.5 SECONDS 11.0 - 15.5 [facility] INR in Platelet poor plasma by Coagulation assay 0.92 0.93 - 1. 23 L [facility] aPTT in Blood by Coagulation assay 39.5 SECONDS 24.8 - 36.7 H [facility] \\BLDo\\INR INTERPRETATION\\BLDx\\ Therapeutic range for Coumadin and related oral anticoagulants. - International Normalized Ratio (INR): 2.0 - 3.0 for Venous Thrombosis, Pulmonary Embolus, Tissue heart valves, Acute [place] Atrial Fibrillation, Valvular heart disease and recurrent Systemic Embolism. - International Normalized Ratio (INR): 2.5 - 3.5 for Mechanical Prosthetic valve. ID Date Data Source [id number] 05/15/2021 12:37:00 PM EDT [facility] Name Value Range Interpretation Code Description Data Aura rce(s) Supporting Document(s) CBC W/AUTOMATED DIFF [facility] COMPLETE BLOOD COUNT Leukocytes [#/volume] in Blood by Automated count 6.8 10^3/uL 4.2 - 1 1.0 [facility] Erythrocytes [#/volume] in Blood by Automated count 4.24 10^6/uL 4. 20 - 5.40 [facility] Hemoglobin [Mass/volume] in Blood 12.4 g/dL 12.0 - 16.0 [facility] Hematocrit [Volume Fraction] of Blood by Automated count 37.2 % 3 7.0 - 47.0 [facility] Erythrocyte mean corpuscular volume [Entitic volume] by Auto mated count 87.7 fL 81.0 - 101 [facility] Erythrocyte mean corpuscular hemoglobin [Entitic mass] by Automated count 29.2 pg 27.0 - 34.0 [facility] Erythrocyte mean corpuscular hemoglobin concentration [Mass/volume] by Automated count 33.3 g/dL 31.0 - 36.0 [facility] Erythrocyte distribution width [Ratio] by Automated count 14.9 % 11.5 - 14.5 H [facility] Platelets [#/volume] in Blood by Automated count 208 10^3/uL 150 - 45 0 [facility] Platelet mean volume [Entitic volume] in Blood by Automated count 9.0 fL 7.4 - 10.4 [facility] Neutrophils/100 leukocytes in Blood by Automated count 27.3 % 37. 0 - 80.0 L [facility] Lymphocytes/100 leukocytes in Blood by Manual count 31.0 % 25.0 - 40.0 [facility] Monocytes/100 leukocytes in Blood by Automated count 8.8 % 3.0 - 8.0 H [facility] Eosinophils/100 leukocytes in Blood by Automated count 31.3 % 0.0 - 7.0 H [facility] Basophils/100 leukocytes in Blood by Automated count 0.7 % 0.0 - 2.5 [facility] %IG 0.9 % 0.0 - [facility] % 0.0 - 0.0 [facility] al Neutrophils [#/volume] in Blood by Automated count 1.86 10^3/uL 2.00 - 6.90 L [facility] Lymphocytes [#/volume] in Blood by Automated count 2.11 10^3/uL 0.60 - 3.40 [facility] Monocytes [#/volume] in Blood by Automated count 0.60 10^3/uL 0.00 - 0.90 [facility] Eosinophils [#/volume] in Blood by Automated count 2.13 10^3/uL 0.00 - 0.70 H [facility] Basophils [#/volume] in Blood by Automated count 0.05 10^3/uL 0.00 - 0.20 [facility] #IG 0.06 10^3/uL 0.00 - 0.10 [facility] H [facility]spital #NRBC 0.02 10^3/uL 0.00 - 0.00 H [facility] MANUAL DIFF NOT INDICATED [facility] RBC MORPH NOT INDICATED [facility] Ho spital ID Date Data Source [id number] 12/25/2020 10:28:00 AM EDT [facility] ([facility]) Name Value Range Interpretation Code Description Data Aura rce(s) Supporting Document(s) Surgical Pathology Consult Laboratory test result [facility] ([facility]) Surgical Pathology Report Name: ALAINA HOUSTON Collection Date: 12/25/2020 00:00 Received Date: 12/25/2020 10:30 Physician(s): MAGDI PEACE DO HAGHIR, SHAHANDEH F, MD Specimen(s) Received A: Material received for consultation, GD, [facility], [id number] Clinical History For consultation. 30 year-old lady with right breast mass. Please also do ER, [facility], HER2, reflex to FISH. 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 Gross Description Received from [facility] in [place], [place], are 2 H and E stained slides and 1 paraffin block, labeled [id number], with the corresponding pathology report. This report may include one or more immunohistochemical stain results that use analyte specific reagents. All positive and negative controls have been reviewed by the attending pathologist and are satisfactory. The tests were developed and their performance characteristics determined by [facility] Pathology department. They have not been cleared or approved by the US Food and Drug Administration. The FDA has determined that such clearance or approval is not necessary. ID Date Data Source [id number] 12/26/2020 05:06:00 PM [facility] Surgical Pathology ReportName: ALBERTINA HOUSTON RAMRN: [id number] Number: [id number] Date: 12/25/2020 00:00Received Date: 12/25/2020 10:30Physician(s): MAGDI PEACE DO HAGHIR,BENJY Cisneros,MDSpecimen(s) ReceivedA: Material received for consultation, GD, [facility],[id number] HistoryFor consultation. 30 year-old lady with right breast mass. Please alsodo ER, [facility], HER2, reflex to FISH.DiagnosisBREAST, RIGHT, NEEDLE BIOPSY ([id number], 12/20/20): INVASIVE DUCTALCARCINOMA.GRADE: 3VASCULAR INVASION: AbsentDCIS: Absent CALCIFICATIONS: PresentESTROGEN RECEPTORS: Negative (0% stai ayala).PROGESTERONE RECEPTORS: Low Positive (1-10%).HER2: Negative (1+). NoteI completely agree with your diagnosis of high-grade invasive ductalcarcinoma. Thank you for letting me see this case in consultation.Electronically Signed By Aldair Lin M.D., Attending Pathologist12/26/2020 17:06:54 Unless 'gross-only' is specified, the final diagnosis is based on amicroscopic examination of videotape sales representative sections of tissue.Gross DescriptionReceived from [facility] in [place], [place], are 2 H and Estained slides and 1 paraffin block, labeled [id number], with thecorresponding pathology report. This report may include one or more immunohistochemical stain results thatuse analyte specific reagents. All positive and negative controls havebeen reviewed by the attending pathologist a nd are satisfactory. The testswere developed and their performance characteristics determined by [facility] Pathology department. They have not been cleared or approved by the USFood and Drug Administration. The FDA has determined that such clearanceor approval is not necessary. Name Value Range Interpretation Code Description Data Aura rce(s) Supporting Document(s) ID Date Data Source [id number] 10/27/2020 02:29:00 PM EST [facility] ([facility]) Name Value Range Interpretation Code Description Data Aura rce(s) Supporting Document(s) Influenza virus B RNA [Presence] in Unsp ecified specimen by Probe and target amplification method Laboratory test result [facility] ([facility]) Influenza virus A RNA [Presence] in Unsp ecified specimen by Probe and target amplification method Laboratory test result [facility] ([facility]) ID Date Data Source [id number] 10/27/2020 02:21:00 PM EST [facility] ([facility]) Name Value Range Interpretation Code Description Data Aura rce(s) Supporting Document(s) Laboratory test finding (navigational concept) Laboratory test result [facility] ([facility]) ID Date Data Source [id number] 10/27/2020 02:19:00 PM EST [facility] Name Value Range Interpretation Code Description Data Aura rce(s) Supporting Document(s) SARS coronavirus 2 RNA Not Detected [facility] This lab was ordered by [facility] betsy and reported by [facility]. ID Date Data Source [id number] 10/29/2020 10:51:00 AM EST [facility] Name Value Range Interpretation Code Description Data Aura rce(s) Supporting Document(s) SARS-CoV-2, EMMY Not Detected Not Detected [facility] This nucleic acid amplification test was developed and its performancecharacteristics determined by [facility]. Nucleic acidamplification tests include RT-PCR and TMA. This test has not beenFDA cleared or approved. This test has been authorized by FDA underan Emergency Use Authorization (EUA). This test is only authorizedfor the duration of time the declaration that circumstances existjustifying the authorization of the emergency use of in vitrodiagnostic tests for detection of SARS-CoV-2 virus and/or diagnosisof COVID-19 infection under section 564(b)(1) of the Act, 21 U.S.C.360bbb-3(b) (1), unless the authorization is terminated or revokedsooner.When diagnostic testing is negative, the possibility of a falsenegative result should be considered in the context of a patient'srecent exposures and the presence of clinical signs and symptomsconsistent with COVID- 19. An individual without symptoms of COVID-19and who is not shedding SARS-CoV-2 virus would expect to have anegative (not detected) result in this assay. Procedure Social History Code Duration Value Status Description Data Source(s ) Smoking 07/06/2021 12:00:00 AM EDT Never Smoker completed Never S moker eCW1 ([facility]) Smoking 06/25/2021 12:00:00 AM EDT Never Smoker completed Never S moker eCW1 ([facility]) Alcohol intake 06/21/2021 12:00:00 AM EDT Lifetime non-drinker (finding) completed Lifetime non-drinker (finding) [facility] Smoking 06/14/2021 12:00:00 AM EDT Never Smoker completed Never S moker eCW1 ([facility]) Smoking 06/14/2021 12:00:00 AM EDT Never Smoker completed Never S moker eCW1 ([facility]) Smoking 06/14/2021 12:00:00 AM EDT Never Smoker completed Never S moker eCW1 ([facility]) Alcohol intake 05/31/2021 12:00:00 AM EDT Lifetime non-drinker (finding) completed Lifetime non-drinker (finding) [facility] Tobacco use and exposure 05/22/2021 12:00:00 AM EDT Never used co mpleted Never used [facility] Smoking 05/22/2021 12:00:00 AM EDT Never smoker completed Never s moker [facility] Alcohol intake 05/22/2021 12:00:00 AM EDT Lifetime non-drinker (finding) completed Lifetime non-drinker (finding) [facility] Smoking 02/16/2021 12:00:00 AM EDT Never Smoker completed Never S moker eCW1 ([facility]) Smoking 02/16/2021 12:00:00 AM EDT Never Smoker completed Never S moker eCW1 ([facility]) Smoking 01/22/2021 12:00:00 AM EDT Never Smoker completed Never S moker eCW1 ([facility]) Smoking 01/22/2021 12:00:00 AM EDT Never Smoker completed Never S moker eCW1 ([facility]) Smoking 01/22/2021 12:00:00 AM EDT Never Smoker completed Never S moker eCW1 ([facility]) Smoking 01/22/2021 12:00:00 AM EDT Never Smoker completed Never S moker eCW1 ([facility]) Smoking 12/28/2020 12:00:00 AM EDT Never Smoker completed Never S moker eCW1 ([facility]) Smoking 12/28/2020 12:00:00 AM EDT Never Smoker completed Never S moker eCW1 ([facility]) Smoking 12/28/2020 12:00:00 AM EDT Never Smoker completed Never S moker eCW1 ([facility]) Smoking 12/28/2020 12:00:00 AM EDT Never Smoker completed Never S moker eCW1 ([facility]) Smoking 12/28/2020 12:00:00 AM EDT Never Smoker completed Never S moker eCW1 ([facility]) Smoking 12/28/2020 12:00:00 AM EDT Never Smoker completed Never S moker eCW1 ([facility]) Smoking 12/28/2020 12:00:00 AM EDT Never Smoker completed Never S moker eCW1 ([facility]) Smoking 12/28/2020 12:00:00 AM EDT Never Smoker completed Never S moker eCW1 ([facility]) Smoking 12/14/2020 12:00:00 AM EDT Never Smoker completed Never S moker eCW1 ([facility]) Smoking 11/28/2020 12:00:00 AM EST Never Smoker completed Never S moker eCW1 ([facility]) Smoking 11/28/2020 12:00:00 AM EST Never Smoker completed Never S moker eCW1 ([facility]) Vital Signs ID Date Data Source UNK Name Value Range Interpretation Code Description Data Source(s) Body weight 75.865 kg 75.865 kg [facility] ([facility]) Body surface area Derived from formula 1.77 m2 1.77 m2 [facility] ([facility]) Systolic blood pressure 96 mm[Hg] 96 mm[Hg] [facility] Diastolic blood pressure 60 mm[Hg] 60 mm[Hg] [facility] ([facility]) Heart rate 82 /min 82 /min [facility] ([facility]) Body temperature 96.7 [degF] 96.7 [degF] [facility] ([facility]) Body height 62 [in_i] 62 [in_i] [facility] ([facility]) 5'2" Body weight 167.25 [lb_av] 167.25 [facility]_av[facility] Body mass index (BMI) [Ratio] 30.6 kg/m2 30.6 k g/m2 [facility] ([facility]) [place] body weight 110 [lb_av] 110 [lb_av[facility] Body weight 73.483 kg 73.483 kg [facility] Body mass index (BMI) [Ratio] 29.63 kg/m2 29.63 kg/m2 [facility] Oxygen saturation in Arterial blood by Pulse oximetry 97 % 97 % [facility] Systolic blood pressure 116 mm[Hg] 116 mm[Hg] [facility] Diastolic blood pressure 70 mm[Hg] 70 mm[Hg] [facility] Heart rate 100 /min 100 /min [facility] Body weight 74.66 kg 74.66 kg eCW1 ([facility]) Body height [in_i] eCW1 ([facility]) Body mass index (BMI) [Ratio] 30.10 kg/m2 30.10 kg/m2 eCW1 ([facility]) Body weight 164.6 [lb_av] 164.6 [lb_av] [facility] Heart rate 102 /min 102 /min eCW1 ([facility]) Respiratory rate 18 /min 18 /min eCW1 ([facility]) Body temperature 97.1 [degF] 97.1 [degF] eCW1 ( [facility]) Systolic blood pressure 104 mm[Hg] 104 mm[Hg] e CW1 ([facility]) Diastolic blood pressure 62 mm[Hg] 62 mm[Hg] eCW1 ([facility]) Systolic blood pressure 100 mm[Hg] 100 mm[Hg] [facility] Diastolic blood pressure 72 mm[Hg] 72 mm[Hg] [facility] Heart rate 94 /min 94 /min [facility] Body height 157.5 cm 157.5 cm [facility] Body weight 74.844 kg 74.844 kg [facility] Body mass index (BMI) [Ratio] 30.18 kg/m2 30.18 kg/m2 [facility] Oxygen saturation in Arterial blood by Pulse oximetry 97 % 97 % [facility] Systolic blood pressure 112 mm[Hg] 112 mm[Hg] [facility] Diastolic blood pressure 70 mm[Hg] 70 mm[Hg] [facility] Heart rate 90 /min 90 /min [facility] Body height 157.5 cm 157.5 cm [facility] Body weight 75.116 kg 75.116 kg [facility] Body mass index (BMI) [Ratio] 30.29 kg/m2 30.29 kg/m2 [facility] Oxygen saturation in Arterial blood by Pulse oximetry 97 % 97 % [facility] Body weight 171 [lb_av] 171 [lb_av] eCW1 ([facility]) Body weight 77.56 kg 77.56 kg eCW1 ([facility]) Body height [in_i] eCW1 ([facility]) Body mass index (BMI) [Ratio] 31.27 kg/m2 31.27 kg/m2 W1 ([facility]) Heart rate 117 /min 117 /min eCW1 ([facility]) Respiratory rate 18 /min 18 /min eCW1 ([facility]) Body temperature 96.2 [degF] 96.2 [degF] eCW1 ( [facility]) Systolic blood pressure 124 mm[Hg] 124 mm[Hg] e CW1 ([facility]) Diastolic blood pressure 84 mm[Hg] 84 mm[Hg] eCW1 ([facility]) Body weight 174 [lb_av] 174 [lb_av] eCW1 ([facility]) Body weight 78.93 kg 78.93 kg eCW1 ([facility]) Body height [in_i] eCW1 ([facility]) Body mass index (BMI) [Ratio] 31.82 kg/m2 31.82 kg/m2 eCW1 ([facility]) Heart rate 111 /min 111 /min eCW1 ([facility]) Respiratory rate 18 /min 18 /min eCW1 ([facility]) Body temperature 96.7 [degF] 96.7 [degF] eCW1 ( [facility]) Systolic blood pressure 118 mm[Hg] 118 mm[Hg] e CW1 ([facility]) Diastolic blood pressure 80 mm[Hg] 80 mm[Hg] eCW1 ([facility]) Body weight 171 [lb_av] 171 [lb_av] eCW1 ([facility]) Body weight 77.56 kg 77.56 kg eCW1 ([facility]) Body height [in_i] eCW1 ([facility]) Body mass index (BMI) [Ratio] 31.27 kg/m2 31.27 kg/m2 eCW1 ([facility]) Heart rate 92 /min 92 /min eCW1 ([facility]) Respiratory rate 18 /min 18 /min eCW1 ([facility]) Body temperature 97.9 [degF] 97.9 [degF] eCW1 ( [facility]) Systolic blood pressure 124 mm[Hg] 124 mm[Hg] e CW1 ([facility]) Diastolic blood pressure 82 mm[Hg] 82 mm[Hg] eCW1 ([facility]) Body temperature 97.9 [degF] 97.9 [degF] eCW1 ( [facility]) Systolic blood pressure 124 mm[Hg] 124 mm[Hg] e CW1 ([facility]) Diastolic blood pressure 82 mm[Hg] 82 mm[Hg] eCW1 ([facility]) Body weight 171 [lb_av] 171 [lb_av] eCW1 ([facility]) Body weight 77.56 kg 77.56 kg eCW1 ([facility]) Body height [in_i] eCW1 ([facility]) Body mass index (BMI) [Ratio] 31.27 kg/m2 31.27 kg/m2 eCW1 ([facility]) Heart rate 92 /min 92 /min eCW1 ([facility]) Respiratory rate 18 /min 18 /min eCW1 ([facility]) Body weight 173 [lb_av] 173 [lb_av] eCW1 ([facility]) Body weight 78.47 kg 78.47 kg eCW1 ([facility]) Body height [in_i] eCW1 ([facility]) Body mass index (BMI) [Ratio] 31.64 kg/m2 31.64 kg/m2 eCW1 ([facility]) Heart rate 87 /min 87 /min eCW1 ([facility]) Respiratory rate 18 /min 18 /min eCW1 ([facility]) Body temperature 97.2 [degF] 97.2 [degF] eCW1 ( [facility]) Systolic blood pressure 120 mm[Hg] 120 mm[Hg] e CW1 ([facility]) Diastolic blood pressure 76 mm[Hg] 76 mm[Hg] eCW1 ([facility]) Body weight 172 [lb_av] 172 [lb_av] eCW1 ([facility]) Body height [in_i] eCW1 ([facility]) Body mass index (BMI) [Ratio] 31.46 kg/m2 31.46 kg/m2 eCW1 ([facility]) Systolic blood pressure 122 mm[Hg] 122 mm[Hg] e CW1 ([facility]) Diastolic blood pressure 82 mm[Hg] 82 mm[Hg] eCW1 ([facility]) Heart rate 119 /min 119 /min [facility] ([facility]) Body temperature 97.3 [degF] 97.3 [degF] [facility] ([facility]) Oxygen saturation in Arterial blood by Pulse oximetry 95 % 95 % [facility] ([facility]) Patient Treatment Plan of Care Planned Activity Planned Date Details Description Data Source (s) Lidocaine 25 MG/ML / Prilocaine 25 MG/ML Topical Cream 06/25/2021 12:00:00 AM EDT eCW1 ([facility]) carvedilol 6.25 MG Oral Tablet 06/21/2021 12:00:00 AM EDT [facility] empagliflozin 10 MG Oral Tablet 06/21/2021 12:00:00 AM EDT [facility] sacubitril 24 MG / valsartan 26 MG Oral Tablet 05/31/2021 12:00:00 AM EDT [facility] Furosemide 20 MG Oral Tablet 05/31/2021 12:00:00 AM EDT [facility] carvedilol 3.125 MG Oral Tablet 05/31/2021 12:00:00 AM EDT [facility] sacubitril 24 MG / valsartan 26 MG Oral Tablet 05/22/2021 12:00:00 AM EDT [facility] 200 ACTUAT Albuterol 0.09 MG/ACTUAT Metered Dose Inhal er [ProAir] 05/15/2021 12:00:00 AM EDT [facility] benzonatate 100 MG Oral Capsule 05/15/2021 12:00:00 AM EDT [facility] Amoxicillin 875 MG / Clavulanate 125 MG Oral Tablet 05/15/20 12:00:00 AM EDT [facility]
--- OUTSIDE RECORDS SUMMARY | 2021-07-10 09:34 | CCD | Continuity of Care Document ---
Demographics Preferred Language Unknown Marital Status Unknown Presybeterian Affiliation Unknown Race Unknown Ethnic Group Unknown Author Author Benefits Specialist Recruiter, [facility] Organization Unknown Address Unknown Phone Unavailable Care Team Providers Care Chip Person Name Role Phone Tiki Nixon Unavailable Unavailable Problems Malignant neoplasm (C80.1) (199.1) Tiki Nixon Allergies and Adverse Reactions No Allergy Information Available Medications No Medication Information Available Social History No Social History Information Available Tobacco smoking consumption unknown Female Plan of Treatment 2D NON-CONGENITAL COMPLETE, DOPPLER Start: 18-May-2021 In tent ([id number]) Results No Known Results No Result Information Available Vital Signs No Vital Observation Information Available Encounters Echo 18-May-2021 12:48 Encounter Diagnosis:Malignant neoplasm To 12:49 [facility]
--- OUTSIDE RECORDS SUMMARY | 2021-07-10 09:34 | CCD ---
Author Author [facility] Organization [facility] Address Unknown Phone Unavailable Care Team Providers Care Security Project Manager Name Role Phone Soco Cashieszka Unavailable PROBLEMS Type Condition ICD9-CM Code OTS42-HM Code Onset Dates Condition S tatus W/U Status Risk SNOMED Code Notes Problem Infiltrating ductal carcinoma C50.919 Active confir med 167778923 Problem Malignant neoplasm of unspecified site of right female breast C50.911 Active confirmed [id number] ALLERGIES Allergen (clinical drug ingredient) Drug/Non Drug Allergy do cumented on EMR Reaction Allergy Type Onset Date Status seasonal nasaly/upper congestion Non Drug Allergy Active ENCOUNTERS from 1992 to 2021-06-12 Encounter Location Date Provider Diagnosis [facility] [address] [place] [address] [place] [id number] May, Belem Cash IMMUNIZATIONS No Information SOCIAL HISTORY Tobacco Use: Social History Observation Description Date Details (start date - stop date) Never Smoker Sex Assigned At : Social History Observation Description Sex Assigned At Unknown Language: Question Answer Notes Languages spoken: Setswana Sexual Hx: Question Answer Notes Had sex [...] Notes Start Da te End Date Status Benadryl Allergy 25 MG 1 tablet at bedtime as needed Orally Once a da y Active Lutera 0.1-20 MG-MCG 1 tablet Orally Once a day Active ZyrTEC Active PROCEDURES No Information RESULTS No Results REASON FOR VISIT Breast MRI results MEDICAL (GENERAL) HISTORY Type Description Date Surgical History C section 2018 Surgical History [...] Information ASSESSMENTS No Information PLAN OF TREATMENT Next Appt Details Provider Name:Belem Cash, 12-06-22 03:19:00 PM, [address] [place] [address], [place], [place], [id number] [place], [place] [id number] Provider Name:Chris Jj, 2021-06-18 10:15:00 AM, [address] [place], [place] [address], [place], [id number] [phone] Provider Name:Belem Cash, 12-07-04 11:00:00 AM, [address] [place] [address], [place], [address], Insurance Providers Payer Name Payer Address Payer Phone Insured Name Patient Relati onship to Insured Coverage Start Date Coverage End Date MEDICAID Social Bicycles [address] [facility] [id number] [place] self
--- OUTSIDE RECORDS SUMMARY | 2021-07-10 09:34 | CCD | Summary of Care ---
Author Author [facility] Organization [facility] Address Unknown Phone Unavailable Care Team Providers Care Assortment Planner Name Role Phone PCP Unavailable Encounter Details Care Team Description Date Type Department 05/24/2021 [facility] Clinical Encounter Pathology at [address] [address] Allergies Not on Filedocumented as of this encounter (statuses as of 05/26/2021) Medications Not on filedocumented as of this encounter (statuses as of 05/26/2021) Active Problems Not on filedocumented as of this encounter (statuses as of 05/26/2021) Social History Date Tobacco Use Types Packs/Day Years Used Never Assessed Sex Assigned at Date Recorded Not on file documented as of this encounter Last Filed Vital Signs Not on filedocumented in this encounter Plan of Treatment Date/Time Name Type Priority Associated Diag noses 05/25/2021 3:50 PM EDT Cytogenetics Oncology, Pathology and Routine Blood and Bone Marrow Cytology 05/25/2021 4:10 PM EDT Molecular Diagnostics, Pathology and Routine Oncology Cytology Order Schedule Name Type Priority Associated Diag noses Once for 1 Occurrences starting 05/24/20 21 until 05/24/2021 Cytogenetics Oncology, Pathology and Routine Blood and Bone Marrow Cytology Once for 1 Occurrences starting 05/24/20 21 until 05/24/2021 Molecular Diagnostics, Pathology and Routine Oncology Cytology Health Maintenance Due Date Last Done Comments MMR Vaccines (1 of - 1993 Standard series) Varicella Vaccines (1 of 1993 2 - 2-dose childhood series) DTaP,Tdap,and Td Vaccines 1999 (1 - Tdap) HIV Screening 2005 Cervical Cancer Screening 2013 3 years Influenza Vaccine 06/22/2021 Pneumococcal Vaccine: 65+ 2057 Years (1 of 1 - PPSV23) HIB Vaccines Aged Out No longer eligible based on patient's age to complete this topic Hepatitis A Vaccines Aged Out No longer eligibl e based on patient's age to complete this topic Hepatitis B Vaccines Aged Out No longer eligibl e based on patient's age to complete this topic IPV Vaccines Aged Out No longer eligible based on patient's age to complete this topic Pneumococcal Vaccine: Aged Out No longer eligib le based on patient's age to Pediatrics (0 to 5 Years) complete this topic and At-Risk Patients (6 to 64 Years) documented as of this encounter Procedures Comments Procedure Name Priority Date/Time Associated Diag nosis HEMATOPATHOLOGY Routine 05/24/2021 12:00 AM EDT documented in this encounter Results * Hematopathology (05/24/2021 12:00 AM EDT) HEMATOPATHOLOGY Hematopathology Report [email or web address] Name: [facility] Collection Date: 05/24/2021 00:00 Received Date: 05/25/2021 13:02 Physician(s): JOSS GONZALEZ MD ADJAPONG, OPOKU, MD Copy To: [facility] [place] Specimen(s) Received A: Blood, Flow Cytometry; RECEIVED 2 GREEN TOP PB (2 EXTRA EDTA PB SENT TO MOLECULAR) Clinical History 31-year-old patient with a history of leukocytosis. TEST REQUESTED/PERFORMED: Flow Cytometry Analysis Diagnosis Flow cytometry of blood: Normal lymphocyte subsets with no evidence of acute leukemia or non-Hodgkin lymphoma. History of leukocytosis, currently with eosinophilia and anemia. Molecular and cytogenetic testing is pending. Clinical correlation is recommended. Ashwin Guerin M.D.;Resident Pathologist Electronically Signed By Soni Pruitt MD, PhD Attending Pathologist 05/25/2021 15:57:44 The attending pathologist named above attests that he/she has personally reviewed the relevant preparation(s) for the specimen(s) and rendered the final diagnosis. Procedures Flow Cytometry Date Ordered:05/25/2021 Status: Signed Out 05/25/2021 Interpretation PERIPHERAL BLOOD: CBC performed at [facility], [address] [place] [address] on 05/24/21. WBC 6.6 K/uL RBC 4.10 M/uL Hgb *11.9 g/dL Hct 36.9 % MCV 90.0 fL MCH 29.0 pg MCHC 32.2 g/dL RDW *15.2 % Platelets 293 K/uL Differential Count (automated): 25.6 % Neutrophils 43.3 % Eosinophils 1.1 % Basophils 24.3 % Lymphocytes 0.3 % Atypical Lymphocytes 5.4 % Monocytes ------- 100.0 % A peripheral blood film is reviewed and shows mild anemia with occasional dacryocytes. Eosinophilia (2.9 K/uL). Lymphoid Panel: [facility], [place]21 [id number] The following markers were assayed: CD45 (gate), CD2, CD3, CD4, CD5, CD7, CD8, CD10, CD19, CD20, CD38, CD56, CD57, [place], and Lambda. # events: [id number] Viability: 98% Flow Cytometry Differential (CD45/SSC) Lymphocyte Carlyle: 17% CD45 dim Carlyle: 0% Monocyte Carlyle: 2% Granulocyte Carlyle: 75% Nucleated/Erythroid Carlyle: 1% The lymphocyte gate shows B-cells (CD19): 3% T-cells (CD3): 69% NK-cells (CD3-/CD56+): 22% [place]/Lambda Ratio: 2.0 CD4/CD8 Ratio: 1.4 Results: (expressed as % of lymphocyte gate) T-cell Markers: CD2 = 83, CD3 = 69, CD3/CD4 = 39, CD3/CD8 = 27, CD5 = 72, CD7 = 87, CD3/57 = 14 B-cell markers: [place] = 2, Lambda = 1, CD19 = 3, CD20 = 4, CD19/10 = 2, CD19/CD5 = 2, CD38/CD20 = 3 Light chain as % of B-Cells: CD19/[place] = 51, CD19/Lambda = 29 CD19/CD5/[place] = 2, CD19/CD5/Lambda = 0 CD19/CD10/[place] = 27, CD19/CD10/Lambda = 23 NK cell Markers: CD56 = 28, CD57 = 26 Other Markers: CD10 = 2, CD38 = 69 Results-Comments The gated population of lymphocytes consists predominantly of T cells with normal expression of schrader T-cell markers and a normal CD4/CD8 ratio, high normal proportions of NK and cytotoxic T cells, and polyclonal B cells. Procedure Electronically Signed By: Soni Pruitt MD, PhD 05/25/2021 This report may include one or more immunohistochemical stain/fluorochrome conjugated monoclonal antibody results that use analyte specific reagents. All positive and negative controls have been reviewed by the attending pathologist and are satisfactory. The tests were developed and their performance characteristics determined by [facility] Pathology department. They have not been cleared or approved by the [place] Food and Drug Administration. The FDA has determined that such clearance or approval is not necessary. Specimen Performing Organization Address City/State/ZIP Code P sara Number [place] [address] PATHOLOGY documented in this encounter
[2021-07-10] MEDS ORDERED: ceFAZolin SOD 2 GM in IV 1 EA IV ONE (10:25)
[2021-07-10] MEDS ORDERED: HEPARIN SOD (PORCINE) 5000UNITS/ML 1ML VIAL/SYRINGE SQ ONE (10:25)
[2021-07-10] MEDS ORDERED: BUPIVACAINE LIPOSOME/PF 1.3% 20ML VIAL (13.3MG/ML)(EXPAREL)(C9290 PER1MG) As Ordered ONE (13:12)
[2021-07-10] MEDS ORDERED: GENTAMICIN SULF 80MG/2ML VIAL As Ordered ONE (13:13)
[2021-07-10] MEDS ORDERED: SCOPOLAMINE 1MG TRANSDERMAL PATCH TOP ONE ×2 (13:15→13:46)
[2021-07-10] MEDS ORDERED: METHYLENE BLUE 0.5% (5MG/ML) 10 ML AMP (PROVAYBLUE) As Ordered ONE (14:17)
[2021-07-10] MEDS ORDERED: ONDANSETRON 4MG/2ML VIAL As Ordered ONE (14:41)
[2021-07-10] MEDS ORDERED: HYDROmorphone HCL 2 MG/ML 1ML VIAL As Ordered ONE (14:41)
[2021-07-10] MEDS ORDERED: propofoL 200 MG/20 ML VIAL As Ordered ONE (14:41)
[2021-07-10] MEDS ORDERED: fentaNYL 100 MCG/2 ML INJECTION (J3010) As Ordered ONE ×2 (14:41→16:30)
[2021-07-10] MEDS ORDERED: ROCURONIUM BROMIDE 50 MG/5 ML VIAL As Ordered ONE (14:41)
[2021-07-10] MEDS ORDERED: LIDOCAINE 2% 100MG/5ML SDV (FOR ANES.) As Ordered ONE (14:41)
[2021-07-10] MEDS ORDERED: MIDAZOLAM INJ 2MG/2ML VIAL (J2250 PER 1MG) As Ordered ONE (14:41)
[2021-07-10] MEDS ORDERED: dexameTHASONE 4 MG/ML 1ML VIAL (J1100 PER 1MG) As Ordered ONE (14:41)
[2021-07-10] MEDS ORDERED: ePHEDrine SULFATE 25 MG/5 ML(5MG/ML) SYRINGE As Ordered ONE ×2 (15:05→16:24)
[2021-07-10] MEDS ORDERED: ESMOLOL INJ 100MG/10ML VIAL As Ordered ONE (15:12)
[2021-07-10] MEDS ORDERED: METOCLOPRAMIDE INJ 10MG/2ML VIAL (J2765 PER 1) As Ordered ONE (15:34)
[2021-07-10] MEDS ORDERED: SUGAMMADEX SODIUM 500 MG/5 ML VIAL (BRIDION) As Ordered ONE (15:36)
[2021-07-10] MEDS ORDERED: ACETAMINOPHEN 1000MG 100ML IV BTL (OFIRMEV) (J0131 PER 10MG) As Ordered ONE (15:36)
[2021-07-10] MEDS ORDERED: PHENYLEPHRINE 10MG/ML 1ML VIAL (J2370 PER 1) As Ordered ONE (16:25)
--- NOTE | 2021-07-10 17:19 | REP ---
INDICATION: RIGHT BREAST CA. COMPARISON: None. TECHNIQUE/RADIOTRACER AND DOSE: This procedure was performed by JJ Brown, under the direct supervision of Dr. Reed. Images were reviewed with Dr. Reed prior to dictation. The risks and benefits of the procedure were explained to the patient and informed consent was obtained both orally and written. Directly prior to the start of the procedure, a formal timeout was done in the exam room. Using topical anesthetic and sterile technique 1.014 mCi of filtered Technetium-99m sulfur colloid was injected subdermally in 8 fractionated periareolar injections. FINDINGS: Images obtained 1 hour after injection show dominant focus of uptake in the right axilla. IMPRESSION: Images obtained 1 hour after injection show a dominant focus of uptake in the right axilla. <Electronically signed by Leslie Salazar > 07/10/21 1620 <Electronically signed by Louis Reed > 07/10/21 0686
[2021-07-10] MEDS ORDERED: traMADol 50 MG TAB PO PRN (18:20)
[2021-07-10] MEDS ORDERED: ACETAMINOPHEN TAB 650MG DOSE (2X325MG) PO PRN (18:20)
[2021-07-10] MEDS ORDERED: ONDANSETRON 4MG/2ML VIAL IV PRN ×2 (18:20→18:55)
[2021-07-10] MEDS ORDERED: MORPHINE 2 MG/ML 1ML VIAL (J2270) IV PRN (18:20)
[2021-07-10] MEDS ORDERED: LR 1,000 ML IV SCH ×2 (18:20→18:55)
--- OUTSIDE RECORDS SUMMARY | 2021-07-10 18:38 | CCD ---
Author Author [facility] Organization [facility] Address Unknown Phone Unavailable Care Team Providers Care Machine Operator Helper Name Role Phone NO, PCP Unavailable Unavailable [...] ADJAPONG, JOSS Unavailable Unavailable BUMBANAC, A STAR PARADI OPERATOR Unavailable Unavailable BUMBANAC, A STAR PARADI OPERATOR Unavailable Unavailable BUMBANAC, A STAR PARADI OPERATOR Unavailable Unavailable BUMBANAC, A STAR PARADI OPERATOR Unavailable Unavailable BUMBANAC, A STAR PARADI OPERATOR Unavailable Unavailable BUMBANAC, A STAR PARADI OPERATOR Unavailable Unavailable BUMBANAC, A STAR PARADI OPERATOR Unavailable Unavailable BUMBANAC, A STAR PARADI OPERATOR Unavailable Unavailable BUMBANAC, A STAR PARADI OPERATOR Unavailable Unavailable BUMBANAC, A STAR PARADI OPERATOR Unavailable Unavailable BUMBANAC, A STAR PARADI OPERATOR Unavailable Unavailable BUMBANAC, A STAR PARADI OPERATOR Unavailable Unavailable BUMBANAC, A STAR PARADI OPERATOR Unavailable Unavailable BUMBANAC, A STAR PARADI OPERATOR Unavailable Unavailable BUMBANAC, A STAR PARADI OPERATOR Unavailable Unavailable BUMBANAC, A STAR PARADI OPERATOR Unavailable Unavailable BUMBANAC, A STAR PARADI OPERATOR Unavailable Unavailable BUMBANAC, A STAR PARADI OPERATOR Unavailable Unavailable BUMBANAC, A STAR PARADI OPERATOR Unavailable Unavailable BUMBANAC, A STAR PARADI OPERATOR Unavailable Unavailable BUMBANAC, A STAR PARADI OPERATOR Unavailable Unavailable BUMBANAC, A STAR PARADI OPERATOR Unavailable Unavailable BUMBANAC, A STAR PARADI OPERATOR Unavailable Unavailable BUMBANAC, A STAR PARADI OPERATOR Unavailable Unavailable BUMBANAC, A STAR PARADI OPERATOR Unavailable Unavailable BUMBANAC, A STAR PARADI OPERATOR Unavailable Unavailable BUMBANAC, A STAR PARADI OPERATOR Unavailable Unavailable BUMBANAC, A STAR PARADI OPERATOR Unavailable Unavailable BUMBANAC, A STAR PARADI OPERATOR Unavailable Unavailable BUMBANAC, A STAR PARADI OPERATOR Unavailable Unavailable BUMBANAC, A STAR PARADI OPERATOR Unavailable Unavailable Elizabeth Abbott MD Unavailable Unavailable [...] is protected by Article 27-F of the [facility] Public Health law. If you continue you may have access to information: Regarding HIV / AIDS; Provided by facilities licensed or operated by the [facility] Office of Mental Health; or Provided by the [facility] Office for People With Developmental Disabilities. If such information is present, then the following [facility] mandated warning applies: This information has [...] law may result in a fine or fpc sentence or both. A general authorization for the release of medical or other information is NOT sufficient authorization for further disc losure. Allergies and Adverse Reactions Type Description Substance Reaction Status Data Source(s ) Propensity to adverse reactions PROCHLORPERAZINE Prochlorperazin e Palpitations Low Active [facility] Low Family History Family Member Name Family Member Gender Family Member Status Date o f Status Description Data Source(s) Unknown Unknown Encounters Encounter Providers Location Date Indications Data Source(s ) [place] [address] [facility] [address] 07/06/2021 12:00:00 AM EDT eCW1 ([facility]) Unknown [address] [facility] [place] [address] 07/06/2021 12:00:00 AM EDT eCW1 ([facility]) Unknown [address] [facility] [place] [address] 07/02/2021 12:00:00 AM EDT eCW1 ([facility]) Outpatient Attender: Elizabteh ELISE-SJP.GALILEO 05/25 12:00:00 AM EDT [facility] [place] [address] [facility] [address] 06/14/2021 12:00:00 AM EDT eCW1 ([facility]) [place] [address] [facility] [address] 06/14/2021 12:00:00 AM EDT eCW1 ([facility]) [place] [address] [facility] [address] 06/13/2021 12:00:00 AM EDT eCW1 ([facility]) Unknown [address] [facility] [place] [address] 06/11/2021 12:00:00 AM EDT eCW1 ([facility]) Outpatient Attender: Elizabeth URBANOGALILEO-SJP.GALILEO 05/2021 12:00:00 AM EDT - 05/31/2021 09:47:05 AM EDT [facility] Outpatient Admitter: JOSS GONZALEZReferrer: JOSS GONZALEZ 05/24/2021 12:00:00 AM EDT Elevated white blood cell count, unspecified [facility] Elevated white blood cell count, unspeci fied Outpatient Attender: Elizabeth BARLOW.GALILEO-SJP.GALILEO 04/24 12:00:00 AM EDT - 05/22/2021 09:01:53 AM EDT [facility] Echo<td><content ID="_[id number]">Echo</content>
<content><content styleCode="xSecondary xLabel">Encounter Diagnosis:</content><content ID="_[id number]" styleCode="xSecondary">Malignant neoplasm</content></content></td><td><content styleCode="xSecondary">18-May-2021 12:48 </content><content styleCode="xLabel xSecondary"> To </content><content styleCode="xSecondary">18-May-2021 12:49</content>
<content styleCode="xSecondary">[facility]</content>
</td><td></td> [facility] 12:48:06 PM EDT - 05/18/2021 12:49:18 PM EDT Malignant neoplasm [facility] ([facility]) Malignant neoplasm Emergency Attender: KARINA OSUNA MDConsultant: PCP KANIKA 05/15/2021 11:48:00 AM EDT - 05/15/2021 06:14:00 PM EDT [facility] Patient discharged. [place] [address] [facility] [address] 02/16/2021 12:00:00 AM EDT eCW1 ([facility]) (BC Biopsy) Breast Center Biopsy [address] [place] [address] 02/09/2021 12:00:00 AM EDT eCW1 ([facility]) [place] [address] [facility] [address] 01/25/2021 12:00:00 AM EDT eCW1 ([facility]) [place] [address] [facility] [address] 01/22/2021 12:00:00 AM EDT eCW1 ([facility]) [place] [address] [facility] [address] 01/18/2021 12:00:00 AM EDT eCW1 ([facility]) [place] [address] [facility] [address] 01/17/2021 12:00:00 AM EDT eCW1 ([facility]) [place] [address] [facility] [address] 01/08/2021 12:00:00 AM EDT eCW1 ([facility]) [place] [address] [facility] [address] 01/03/2021 12:00:00 AM EDT eCW1 ([facility]) [place] [address] [facility] [address] 12/29/2020 12:00:00 AM EDT eCW1 ([facility]) [place] [address] [facility] [address] 12/29/2020 12:00:00 AM EDT eCW1 ([facility]) [place] [address] [facility] [address] 12/28/2020 12:00:00 AM EDT [facility] Outpatient Admitter: MAGDI Casillas: IVANA PEACE DO 12/25/2020 12:00:00 AM EDT - 12/25/2020 11:59:00 PM EDT Malignant neoplasm of unspecified site of right female breast [facility] Malignant neoplasm of unspecified site o f right female breast [place] [address] [facility] [address] 12/21/2020 12:00:00 AM EDT eCW1 ([facility]) [place] [address] [facility] [address] 12/14/2020 12:00:00 AM EDT eCW1 ([facility]) [place] [address] [facility] [address] 11/29/2020 12:00:00 AM EST eCW1 ([facility]) [place] [address] [facility] [address] 11/28/2020 12:00:00 AM EST eCW1 ([facility]) Outpatient Attender: YU LEIJA NP 10/27 02:12:00 PM EST - 10/27/2020 02:12:00 PM EST [facility] Medications Medication Brand Name Start Date Product Form Dose Route Admi nistrative Instructions Pharmacy Instructions Status Indications Reaction Description Data Source(s) Lidocaine 25 MG/ML / Prilocaine 25 MG/ML Topical Cream Lidocaine-Prilocaine 2.5- 2.5 % Lidocaine-Prilocaine 2.5-2.5 % 06/25/2021 12:00:00 AM EDT active Lidocaine-Prilocaine 2.5-2.5 % e 1 ([facility]) Lidocaine 25 MG/ML / Prilocaine 25 MG/ML Topical Cream Lidocaine-Prilocaine 2.5- 2.5 % Lidocaine-Prilocaine 2.5-2.5 % 06/25/2021 12:00:00 AM EDT active Lidocaine-Prilocaine 2.5-2.5 % e CW1 ([facility]) Lidocaine 25 MG/ML / Prilocaine 25 MG/ML Topical Cream Lidocaine-Prilocaine 2.5- 2.5 % Lidocaine-Prilocaine 2.5-2.5 % 06/25/2021 12:00:00 AM EDT active Lidocaine-Prilocaine 2.5-2.5 % e CW1 ([facility]) carvedilol 6.25 MG Oral Tablet carvedilol (COREG) 6.25 MG tablet carvedilol (COREG) 6.25 MG tablet 06/21/2021 12:00:00 AM EDT 6.25 mg Oral active Take 1 tablet (6.25 mg total) by mouth 2 (two) times a day [facility] empagliflozin 10 MG Oral Tablet Empagliflozin 10 MG TA BS Empagliflozin 10 MG TABS 06/21/2021 12:00:00 AM EDT 10 mg Oral active Take 10 mg by mouth daily [facility] sacubitril 24 MG / valsartan 26 MG Oral Tablet sacubitril-valsartan (ENTRESTO) 24-26 MG TABS sacubitril-valsartan (ENTRESTO) 24-26 MG TABS 05/31/20 12:00:00 AM EDT 1 {tbl} Oral active Take 1 tablet by mouth 2 (two) times a day [facility] Furosemide 20 MG Oral Tablet furosemide (LASIX) 20 MG tablet furosemide (LASIX) 20 MG tablet 05/31/2021 12:00:00 AM EDT 20 mg Oral activ e Take 1 tablet (20 mg total) by mouth daily [facility] carvedilol 3.125 MG Oral Tablet carvedilol (COREG) 3.1 25 MG tablet carvedilol (COREG) 3.125 MG tablet 05/31/2021 12:00:00 AM EDT 3.125 mg Oral aborted Take 1 tablet (3.125 mg total) by mouth 2 (two) times a day [facility] sacubitril 24 MG / valsartan 26 MG Oral Tablet sacubitril-valsartan (ENTRESTO) 24-26 MG TABS sacubitril-valsartan (ENTRESTO) 24-26 MG TABS 05/22/20 21 12:00:00 AM EDT 1 {tbl} Oral aborted Take 1 t ablet by mouth 2 (two) times a day for 14 days [facility] benzonatate 100 MG Oral Capsule benzonatate (TESSALON) 100 MG capsule benzonatate (TESSALON) 100 MG capsule 05/15/2021 12:00:00 AM EDT active TAKE TWO CAPSULES BY MOUTH THREE TIMES A DAY NEEDED FOR COUGH [facility] Amoxicillin 875 MG / Clavulanate 125 MG Oral Tablet amoxicillin-clavulanate (AUGMENTIN) 875-125 MG per tablet amoxicillin-clavulanate (AUGMENTIN) 875- 125 MG per tablet 05/15/2021 12:00:00 AM EDT 1 {tbl} Oral aborte d Take 1 tablet by mouth 2 (two) times a day [facility] 200 ACTUAT Albuterol 0.09 MG/ACTUAT Mete red Dose Inhaler [ProAir] ProAir HFA 108 (90 Base) MCG/ACT inhaler ProAir HFA 108 (90 Base) MCG/ACT inhaler 05/15/2021 12:00:00 AM EDT active INHALE TWO PUFFS BY MOUTH FOUR TIMES A DAY NEEDED FOR WHEEZING [facility] Insurance Providers Payer name Policy type / Coverage type Policy ID Covered democrat ID Covered democrat's relationship to armstrong Policy Armstrong Plan Information MEDICAID M [id number] Self [id number] MEDICAID [id number] Lela [id number] MEDICAID [id number] [place]/[id number] SP [id number] EXCELLUS BCBS B [id number] S [id number] [place]/307 [id number] SP [id number] SELF PAY ONLY [id number] SP [id number] O UNAVAILABLE UNAVAILA BLE BC[place] P[place] 302/[id number] [place] BCBS B [id number] P [id number] [employer] O [id number] O U [id number] SELF PAY ONLY [id number] SP [id number] SELF PAY ONLY - SP1 [id number] SP [id number] [employer] [id number] SP U [id number] SELF PAY UNAVAILABLE SP UNAVAILA BLE [place]BA [place] [id number] [facility] MEDICAID [id number] SP [id number] D Cigna/[employer] [id number] Self SELF PAY ONLY [id number] SP [id number] [facility] MEDICAID [id number] SP [id number] D Problems, Conditions, and Diagnoses Code Display Name Description Problem Type Effective Dates Data Source(s) 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 Z853 Personal history of malignant neoplasm o f breast Personal history of malignant neoplasm of breast Diagnosis 05/15/2021 11:48:00 AM EDT [facility] [id number] CONTACT WITH AND SUSPECTED EXPOSURE TO C OVID-19 CONTACT WITH AND SUSPECTED EXPOSURE TO COVID-19 Diagnosis 05/15/2021 11:48:00 AM EDT [facility] J159 Unspecified bacterial pneumonia Unspecified bacterial pneumonia Diagnosis 05/15/2021 11:48:00 AM EDT [facility] J4531 Mild persistent asthma with (acute) exac erbation Mild persistent asthma with (acute) exacerbation Diagnosis 05/15/2021 11:48:00 AM EDT [facility] R000 Tachycardia, unspecified Tachycardia, unspecified Diag nosis 05/15/2021 11:48:00 AM EDT [facility] R002 Palpitations Palpitations Diagnosis 05/15/2021 11:48:00 A M EDT [facility] C50.911 Malignant neoplasm of unspecified site o f right female breast Malignant neoplasm of unspecified site of right female breast Diagnosis 10:27:00 AM EDT [facility] N91.2 Amenorrhea Amenorrhea Problem 06/18/2021 12:00:00 AM ED T eCW1 ([facility]) C50.919 Malignant neoplasm of female breast Infiltrating ductal carcinoma Problem 06/15/2021 12:00:00 AM EDT eCW1 ([facility]) E66.3 [id number] Overweight (BMI 25.0-29.9) Problem 12:00:00 AM EDT eCW1 ([facility]) I50.20 Systolic heart failure Systolic CHF Problem 06/14/2021 12:00:00 AM EDT [facility] ([facility]) C50.919 [id number] 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 Problem 06/14/2021 12:00:00 AM EDT eC ([facility]) J45.20 Mild intermittent asthma Mild intermittent asthma, unc omplicated Problem 06/14/2021 12:00:00 AM EDT eC ([facility]) J30.9 Allergic rhinitis Allergic rhinitis Problem 06/14/2021 12:00:00 AM EDT [facility] ([facility]) C50.911 [id number] Malignant neoplasm of unspecifie d site of right female breast Problem 05/31/2021 12:00:00 AM EDT [facility] ([facility]) 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 [id number] 05/22/2021 12:00:00 AM EDT [facility] C50.919 [id number] Infiltrating ductal carcinoma Problem 12/27/2020 12:00:00 AM EDT [facility] ([facility]) Surgeries/Procedures Procedure Description Date Indications Data Source(s) BLOOD COUNT COMPLETE AUTO&AUTO DIFRNTL WBC COUNT <td>C BC AND DIFFERENTIAL</td><td>Routine</td><td>05/24/2021</td><td></td><td> </td> 05/24/2021 12:00:00 AM EDT [facility] HEMATOPATHOLOGY <td>HEMATOPATHOLOGY</td><td> Routine</td><td>05/24/2021 12:00 AM EDT</td><td></td><td> </td> 05/24/2021 12:00:00 AM [facility] ECG ROUTINE ECG W/LEAST 12 LDS W/I&R <td>POCT AMB EKG</td><td>Routine</td><td>05/22/2021 8:31 AM EDT</td><td> 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</td><td> </td> 05/22/2021 08:31:00 AM EDT 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 [facility] 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 BLOOD COUNT COMPLETE AUTO&AUTO DIFRNTL WBC COUNT <td>C BC AND DIFFERENTIAL</td><td>Routine</td><td>05/21/2021</td><td></td><td> </td> 05/21/2021 12:00:00 AM EDT [facility] HEPATIC FUNCTION PANEL <td>HEPATIC FUNCTION PANEL</td><td>Routine</td><td>05/21/2021</td><td></td><td> </td> 05/21/2021 12:00:00 AM EDT [facility] BASIC METABOLIC PANEL CALCIUM TOTAL <td>BASIC METABOLI C PANEL</td><td>Routine</td><td>05/21/2021</td><td></td><td> </td> 05/21/2021 12:00:00 AM EDT [facility] BASIC METABOLIC PANEL CALCIUM TOTAL <td>BASIC METABOLI C PANEL</td><td>Routine</td><td>05/02/2021</td><td></td><td> </td> 05/02/2021 12:00:00 AM EDT [facility] Results ID Date Data Source [id number] [facility]/25[facility] See Addendum Luca Moreiraame: LASHAWN HOUSTONRN: [id number] Number: [id number] Date: 05/24/2021 00:00Received Date: 05/25/2021 13:02Physician(s): JOSS GONZALEZ MD ADJAPONG, OPOKU,[facility] [place] [facility]ALTH[facility]imen(s) ReceivedA: Blood, Flow Cytometry; RECEIVED 2 GREEN TOP PB (2 EXTRA EDTA PB SENT TOMOLECULAR)Clinical Qlnqqjz11-xroh-nwm patient with a history of leukocytosis.TEST REQUESTED/PERFORMED: [...] thefinal diagnosis. Addendum 06/01/2021 Cytogenetic analysis (see [id number]):FISH studies were negative for a deletion/rearrangement of the PDGFRA(4q12), PDGFRB (5b15-i88), and FGFR1 (8p12) loci, and showed no evidenceof a BCR/ABL1 [t(9;22)] rearrangement, providing no evidence for amyeloproliferative neoplasm with hypereosinophilia or for chronic myeloidleukemia . Addendum Electronically Signed By: Josiane Belcher MD 06/01/2021 11:20 Addendum 05/30/2021 Allele- specific PCR testing of this specimen is negative for a JAK2 [id number] ([id number]). Addendum Electronically Signed By: Josiane Bagley MD 05/30/2021 11:51 ProceduresFlow Cytometry Date Ordered:05/25/2021 Status: Signed Out05/25/2021 InterpretationPERIPHERAL BLOOD: CBC performed at [facility], [address] [place] [address] on 05/24/21.WBC 6.6 K/uLRBC 4.10 M/uLHgb *11.9 g/dLHct 36.9 %MCV 90.0 fLMCH 29.0 pgMCHC 32.2 g/dLRDW *15.2 %Platelets 293 K/uLDifferential Count (automated):25.6 % Nythjbmgodi16.3 % Eosinophils 1.1 % Jnqxiqyxg26.3 % Lymphocytes 0.3 % Atypical Lymphocytes 5.4 % Monocytes-------100.0 % A peripheral blood film is reviewed and shows mild anemia with occasionaldacryocytes. Eosinophilia (2.9 K/uL).Lymphoid Panel: [facility]21 [id number] following markers were assayed: CD45 (gate), CD2, CD3, CD4, CD5, CD7,CD8, CD10, CD19, CD20, CD38, CD56, CD57, [place], and Lambda.# events: [id number]: 98%Flow Cytometry Differential (CD45/SSC)Lymphocyte Beeler: 17%CD45 dim Beeler: 0%Monocyte Beeler: 2%Granulocyte Beeler: 75%Nucleated/Erythroid Beeler: 1%The lymphocyte gate showsB- cells (CD19): 3%T-cells (CD3): 69%NK-cells (CD3-/CD56+): 22%[place]/Lambda Ratio: 2.0CD4/CD8 Ratio: 1.4Results: (expressed as % of lymphocyte gate)T-cell Markers: CD2 = 83, CD3 = 69, CD3/CD4 = 39, CD3/CD8 = 27, CD5 = 72,CD7 = 87, CD3/57 = 14B-cell markers: [place] = 2, Lambda = 1, CD19 = 3, CD20 = 4, CD19/10 = 2,CD19/CD5 = 2, CD38/CD20 = 3Light chain as % of B-Cells: CD19/[place] = 51, CD19/Lambda = 29 CD19/CD5/[place] = 2, CD19/CD5/Lambda = 0CD19/CD10/[place] = 27, CD19/CD10/Lambda = 23NK cell Markers: CD56 = 28, CD57 = 26Other Markers: CD10 = 2, CD38 = 69Results-CommentsThe gated population of lymphocytes consists predominantly of T cells withnormal expression of schrader T-cell markers and a normal CD4/CD8 ratio, highnormal proportions of NK and cytotoxic T cells, and polyclonal B cells.Procedure Electronically Signed By:Soni Pruitt MD, PhD05/25/2021 This report may include one or more immunohistochemical stain/fluorochromeconjugated monoclonal antibody results that use analyte specific reagents.All positive and negative controls have been reviewed by the attendingpathologist and are satisfactory. The tests were developed and theirperformance characteristics determined by [facility] Pathology department.They have not been cleared or approved by the US Food and DrugAdministration. The FDA has determined that such clearance or approval isnot necessary. Name Value Range Interpretation Code Description Data Aura rce(s) Supporting Document(s) ID Date Data Source [id number] 05/31/2021 01:58:00 PM [facility] Cytogenetics ReportName: GEORGIE HOUSTON: [id number] Number: [id number] Date: 05/24/2021 00:00Received Date: 05/25/2021 15:50Physician(s): JOSS GONZALEZ MD ADJAPONG, OPOKU,MDCopy To:[facility]ALTHpecimen(s) ReceivedA: Peripheral Blood (U-IF)Clinical Emphwsk89-warg-ata patient with a history of leukocytosis and currenteosinophilia and anemia.TEST REQUESTED/PERFORMED: Fluorescence in situ hybridization - FISH DiagnosisFISH studies were negative for a deletion/rearrangement of the PDGFRA(4q12), PDGFRB (6g66-u98), and FGFR1 (8p12) loci, and showed no evidenceof a BCR/ABL1 [t(9;22)] rearrangement. Please correlate with theconcurrent Hematopathology report [id number].Electronically Signed By Soni Pruitt MD, PhD AttendingPathologist 05/31/2021 13:58:36Gross DescriptionFluorescence in situ Hybridization (FISH)nuc satnam(SCFD2,LNX,PDGFRA,KIT)x2[98/100],(PDGFRBx2)[97/100],(DVXP6w8)[100],(ABL1,BCR) x2[97/100]DescriptionFluorescence in situ hybridization (FISH) studies were negative for adeletion/rearrangement of the PDGFRA (4q12), PDGFRB (2t60-j42), and FGFR1(8p12) loci, and for a BCR/ABL1 [t(9;22)] rearrangement. Test DataSpecimen Processed: Peripheral BloodFluorescence in-situ Hybridization (FISH): 24 HR Unstimulated Probe NormalCut-off Nuclei Analyzed FISH SIGNAL PATTERNS Normal Abnormal NKCS LSI PDGFRA (4q12) tricolor fusion: FSQP8SK, LNX-SO, PDGFRA/KIT-SA 3% 100 2 tricolor fusion (G,O,A): 98% 0% 2% *LSI PDGFRB (1i39-q11) - BA 3% 100 2Y: 97% 0% 3% *LSI FGFR1 (8p12) - BA 3% 100 2Y: 100% 0% 0% LSI ABL1 (9q34.1) - SO BCR (22q11.2) - SG ES 3% 100 2O2% 0% 3% Vendor: [employer] or *[employer]. Probes: LSI: Locus Specific Probe; BA: Break Apart; ES: Extra Signal Fluorochromes/ Signals: SG: Spectrum Green; SO: Spectrum Walsh; SA:Spectrum Aqua; Y: Yellow Fusion NKCS: Signals [...] rce(s) Supporting Document(s) ID Date Data Source [id number] 05/29/2021 02:46:00 PM [facility] Molecular Diagnostics ReportName: Daniel HOUSTON ANDRAMRN: [id number] Number: [id number] Date: 05/24/2021 00:00Received Date: 05/25/2021 16:10Physician(s): JOSS GONZALEZ MD ADJAPONG, OPOKU[facility] [place] To:SONI PRUITTJOHN PAUL JONES HOSPITALHDSpecimen(s) ReceivedA: Peripheral Blood - JAK2 - [id number] OF STUDY: JAK2 [id number] Direct Mutation AnalysisSPECIMEN [...] New EnglandJournal of Medicine. 2013; 369: 25: 5498-4175). MPL exon 10 mutations arepresent in ~3-5% of ET and PMF patients (Wilfred SNELL et al. J Mol Diag.2013;15:733-743). If a diagnosis of polycythemia vera (PV) is clinicallyindicated, testing for JAK2 exon 12 mutations should be considered.Approximately 3% of PV cases carry a JAK2 exon 12 mutation (Francisca lundl. [place] Clin. Proc. 2005;80:947-958; Anup BARTON et al. Am. J. ofHematology 2011; 86(9) 354-595). This test was developed and its performance determined by the Departmentof Pathology. Although it has not been cleared or approved by the U.S.Food and Drug Administration (FDA), the FDA has determined that suchapproval is not necessary. The test has been validated and authorized forclinical use by the [facility] ([facility]). js/rwElectronically Signed By Bobby Hinton M.D. Attending Pathologist 114:46:54 Name Value Range Interpretation Code Description Data Aura rce(s) Supporting Document(s) ID Date Data Source [id number] 05/15/2021 11:48:00 AM EDT [facility] 1 OrderSheet [facility] Emergency Department [address] [place] [address] Phone #: [phone] 05/15/2021 11:45 Patient: ETIENNE HOUSTON Sex: F : 1990 Age: 31yWEIGHT:75.0 kg (M) HEIGHT:62 inches (S) BMI:30.3ALLERGIES: ProchlorperazineCHIEF COMPLAINT: palpitationsDIAGNOSIS: Sinus tachycardia, Pneumonia, AsthmaLAB ORDERSOrder Description Priority Entered Acknowledged InitialedCBC w Diff STAT 12:05/15/2021 12:14 Thao Montilla Victoria Amber RMariann. ;CMP STAT 12:05/15/2021 12:14 Thao Montilla Victoria Amber R.N. ;Lipase STAT 12:05/15/2021 12:14 Thao Montilla Victoria Amber R.N. ;PT/PTT STAT 12:05/15/2021 12:14 Thao Montilla Victoria Amber R.N. ;Troponin-T STAT 12:05/15/2021 12:14 Thao Montilla Victoria Amber R.N. ;HCG Serum Qual STAT 12:12 05/15/2021 12:14 Thao Montilla Victoria Amber R.N. ;HCG Serum Quant STAT 13:46 05/15/2021 13:57 Thao Montilla Victoria Amber R.N. ;COVID-19 CAH STAT 15:56 05/15/2021 16:22 Eladia,(Symptomatic as Karina Osuna R.N.Defined by CDC) ;(05/08/21) (Not FirstTest) (NotHospitalized) (Not) (NotResident inCongregate CareSetting) (NotEmployed in 2 OrderSheet [facility] Emergency Department [address] [place] [address] Phone #: ext- [phone] 05/15/2021 11:45 Patient: ETIENNE HOUSTON Sex: F : 1990 Age: 31yHealthcare Setting)DIAGNOSTIC STUDY ORDERSOrder Description Priority Entered Acknowledged InitialedChest Portable 1 STAT 12:07 05/15/2021 12:10 GlorietaView Karina Osuna dolphin trainer, Jose R ER(Oxygen?(No)) ; Tech1 Reason for Study: Shortness of BreathCT CTA AORT STAT 14:18 05/15/2021 Ack'd: 14:18 Griselda Montilla R.N.ILIOFEM RUNOFF Karina Osuna Initialed: 14:20 Karina OsunaWISRRAEL INC PP ; Cancelled: Wrong Order 14:20(Oxygen? (Yes)) Karina Osuna(IV?(Yes)) Reason for Study: shortness of breath hx of breast cancer tachycardia r/o PECT CTA CHEST STAT 14:21 05/15/2021 Ack'd: 14:21 14:42 Kai(NONCOR) W Karina Guevara Amber dolphin trainer, Jose R MÁRQUEZINC PP ; R.N. Tech1(Oxygen?(No))(IV?(Yes)) Reason for Study: hx of breast cahncer sob, tachycardia r/o PEMEDICATION/IV/DRIP/FLUID ORDERSOrder Description Priority Entered Acknowledged InitialedDuoNeb 3 mL X2 12:24 05/15/2021 Ack'd: 12:27 12:37 Montilla,Doses: 6 mL (3 mL TracieeccoKarinaaver, Griselda Griselda R.N.X2 Doses) ; R.N.NS IV 1000 mL 15:58 05/15/2021 Ack'd: 16:08 16:22 Montilla,Bolus: : Bolus 1000 Tracieecco, Karina Montilla, Griselda Griselda R.N.mL (X1) ; R.N.NS IV 1000 mL 17:04 05/15/2021 Ack'd: 17:09 17:14 Montilla,Bolus: : Bolus 1000 TracieeccoKarina Amber Amber R.N.mL (X1) ; R.N.Augmentin PO 875 17:04 05/15/2021 17:13 Montilla,mg (NOW) Coreyliecco, Karina Griselda R.N. ;Tessalon Perles PO 17:57 05/15/2021 18:17 Montilla,200 mg (NOW) Chanliecco, Karina Griselda R.N. ;GENERAL ORDERS 3 OrderSheet [facility] Emergency Department [address] [place] [address] Phone #: ext- [phone] 05/15/2021 11:45 Patient: ETIENNE HOUSTON Sex: F : 1990 Age: 31yOrder Description Priority Entered Acknowledged InitialedBlood Pressure 12:07 05/15/2021 12:10 BurnhamMonitor Karina Osuna dolphin trainer, Jose R ER ; Puet1Tkcllfw Monitor 12:07 05/15/2021 12:10 Glorieta(continuous) Karina Osuna dolphin trainer, Jose R ER ; [id number] 12:07 05/15/2021 12:10 Glorieta Thao Karina dolphin trainer, Jose R ER ; Zbjh7REY 12:07 05/15/2021 12:10 Glorieta Karina Osuna dolphin trainer, [place] ER ; Jpfx3Vwilcs Old EKG 12:07 05/15/2021 12:14 Thao Montilla Victoria Amber R.N. ;Obtain Old Records 12:07 05/15/2021 12:14 Thao Montilla Victoria Amber R.N. ;Oxygen titrate to 12:07 05/15/2021 12:14 Eladia,92% Karina Osuna R.N. ;Pulse oximeter 12:07 05/15/2021 12:10 Glorieta(Continuous) Karina Osuna dolphin trainer, [place] ER ; Ssfi3Llyehh Lock 12:07 05/15/2021 Ack'd: 12:27 13:25 Thao Yancey Victoria Weaver, Amber Jennifer R.NQuentin ; R.N.Vitals 12:07 05/15/2021 12:14 Thao Montilla Victoria Amber R.N. ;Vitals - Orthostatic 12:12 05/15/2021 Ack'd: 12:14 12:27 Thao Montilla Victoria Weaver, Amber Amber R.N. ; R.N.[Electronically signed by Griselda Montilla R.N. (18:22 0812/2020)][Electronically signed by Karina Osuna (03:24 05/16/2021)][Electronically locked by Griselda Montilla R.N. (18:22 05/15/2021)] Name Value Range Interpretation Code Description Data Aura rce(s) Supporting Document(s) ID Date Data Source [id number] 05/15/2021 11:48:00 AM EDT [facility] 1 Medication Reconciliation Report [facility] Emergency Department [address] [place] [address] Phone #: ext- [phone] 05/15/2021 11:45 [id number] Sex: F : 1990 Age: 31yWeight: 75.0 [...] to Pharmacy - USE Rx DISCOUNT CARD:$83.23, BIN:[id number], PCN:BERNARDINO, Group:EMR, ID:[id number].Pharmacy - [facility] - [address] ; [place] [address]. FaxNumber: [phone]. 2 Medication Reconciliation Report [facility] Emergency Department [address] [place] [address] Phone #: ext- [phone] 05/15/2021 11:45 Patient: ETIENNE HOUSTON Sex: F : 1990 Age: 31yAugmentin 875 mg-125 mg tablet Take 1 tablet twice a day for 7 days -- Dispense 14 tablet. Refills: 0.Substitution permitted. Note to Pharmacy - USE Rx DISCOUNT CARD: $83.23, BIN:[id number],PCN:BERNARDINO, Group:EMR, ID:[id number].Pharmacy - [facility] [address] [place] [address] ; [place] [address]. Phone: FaxNumber: .Zithromax Z-Jesse 250 mg tablet Take 2 tablet once a day for 5 days -- then 1 tab daily x 4 days.Dispense 1 packet. Refills: 0. Substitution permitted. Note to Pharmacy - USE Rx DISCOUNT CARD:$80.55, BIN:[id number], PCN:BERNARDINO, Group:EMR, ID:[id number].Pharmacy - [facility] [address] [place] [address]. FaxNumber: .albuterol sulfate HFA 90 mcg/actuation aerosol inhaler Inhale 2 puff four times a day for 30 days -- asneeded for wheezing. Dispense 18 gram. Refills: 0. Substitution permitted. Note to Pharmacy - USE RxDISCOUNT CARD: $8.03, BIN:[id number], PCN:BERNARDINO, Group:EMR, ID:[id number].Pharmacy - [facility] [address] [place] [address] ; [place] [address]. Phone: FaxNumber: . -- Karina Osuna Name Value Range Interpretation Code Description Data Aura rce(s) Supporting Document(s) ID Date Data Source [id number] 05/15/2021 11:48:00 AM EDT [facility] 1 Medication Administration Record [facility] Emergency Department [address] [place] [address] Phone #: ext- [phone] 05/15/2021 11:45 Patient: ETIENNE HOUSTON Sex: F : 1990 Age: 31yWeight: 75.0 kgHeight/Length: 62 inBMI: 30.3ALLERGIES: Prochlorperazine Date/Time Medication Administered Medication OrderedGiven DUONEB [NEB TX] DuoNeb 3 mL X2 Doses: 6 mL (312:27 05/15/2021 Dose: 2 unit dose Nebulizer Neb TX mL X2 Doses)Griselda Montilla R.N.----Stop12:50 05/15/2021Griselda Montilla, R.N.Start NS [IV] NS IV 1000 mL Bolus: : Bolus 519381:07 05/15/2021 Dose: IV Fluids mL (X1)Griselda Montilla, R.N. Bolus: 1000 mL wide open---- Dispensed: 1000 mL bagStop Site: #1 left AC17:09 05/15/2021Griselda Montilla R.N.Start NS [IV] NS IV 1000 mL Bolus: : Bolus [id number]:14 05/15/2021 Dose: IV Fluids mL (X1)Griselda Montilla, R.N. Bolus: 1000 mL wide open---- Dispensed: 1000 mL bagStop Site: #1 left AC17:55 05/15/2021Griselda Montilla, R.N.Given AUGMENTIN [PO] (AMOXICILLIN-POT Augmentin PO 875 mg (NOW)17:13 05/15/2021 CLAVULANATE)Griselda Montilla R.N. Dose: 875 mg Tablets POGiven TESSALON PERLES [PO] Tessalon Perles PO 200 mg (NOW)18:02 05/15/2021 (BENZONATATE)Griselda Montilla R.N. Dose: 200 mg Capsules PO Name Value Range Interpretation Code Description Data Aura rce(s) Supporting Document(s) ID Date Data Source [id number] 05/15/2021 11:48:00 AM EDT [facility] 1 General Instructions [facility] Emergency Department [address] [place] [address] Phone #: ext- [phone] 05/15/2021 11:45 Patient: ETIENNE HOUSTON Sex: F : 1990 Age: 31ySinus tachycardia.Mild [...] to Pharmacy - USE Rx DISCOUNT CARD:$83.23, BIN:[id number], PCN:BERNARDINO, Group:EMR, ID:[id number].Pharmacy - [facility] [address] - [address] ; [place] [address]. FaxNumber: .Augmentin 875 mg-125 mg tablet Take 1 tablet twice a day for 7 days -- Dispense 14 tablet. Refills: 0.Substitution permitted. Note to Pharmacy - USE Rx DISCOUNT CARD: $83.23, BIN:[id number],EUNN:BERNARDINO, Group:EMR, ID:[id number].Pharmacy - [facility] [address] - [address] ; [place] [address]. FaxNumber: .Zithromax Z-Jesse 250 mg tablet Take 2 tablet once a day for 5 days -- then 1 tab daily x 4 days.Dispense 1 packet. Refills: 0. Substitution permitted. Note to Pharmacy - USE Rx DISCOUNT CARD:$80.55, BIN:[id number], EUNN:BERNARDINO, Group:EMR, ID:[id number].Pharmacy - [facility] [address] ; [place] [address]. FaxNumber: .albuterol sulfate HFA 90 mcg/actuation aerosol inhaler Inhale 2 puff four times a day for 30 days -- asneeded for wheezing. Dispense 18 gram. Refills: 0. Substitution permitted. Note to Pharmacy - USE RxDISCOUNT CARD: $8.03, BIN:[id number], PCN:BERNARDINO, Group:EMR, ID:[id number]. 2 General Instructions [facility] Emergency Department [address] [place] [address] Phone #: ext- [phone] 05/15/2021 11:45 Patient: ETIENNE HOUSTON Sex: F : 1990 Age: 31yPharmacy - [facility] - [address] ; [place] [address]. FaxNumber: .Follow-up:Follow up with your healthcare provider [...] the air, very cold 3 General Instructions [facility] Emergency Department [address] [place] [address] Phone #: ext- [phone] 05/15/2021 11:45 Patient: ETIENNE HOUSTON Sex: F : 1990 Age: 31yair, [...] still in the yellow 4 General Instructions [facility] Emergency Department [address] [place] [address] Phone #: bug- [phone] 05/15/2021 11:45 -- Patient: ETIENNE HOUSTON Sex: F : 1990 Age: 31y zone (50% to 80%) 15 minutes after using inhaler medicine.Call [phone] if any of these occur: Trouble walking or talking because you are short of breath If you use a peak flow meter as part of an Asthma Action Plan, and you are still in the red zone (less than 50%) 15 minutes after using inhaler medicine Lips or fingernails turn levin, purple, or blue Feeling faint or loss of consciousness [phone] [employer]. [address] [place] [address], [place] [address]. All rights reserved. This information is not [...] first week of treatment. 5 General Instructions [facility] Emergency Department [address] [place] [address] Phone #: ext- [phone] 05/15/2021 11:45 Patient: ETIENNE HOUSTON Sex: F : 1990 Age: 31yHome careFollow these guidelines when caring for yourself at [...] smoke in your home. 6 General Instructions [facility] Emergency Department [address] [place] [address] Phone #: ext- [phone] 05/15/2021 11:45 Patient: ETIENNE HOUSTON Sex: F : 1990 Age: 31y Prevent lung infections. Ask your healthcare provider about the flu and pneumonia vaccines. Take steps to prevent colds and other lung infections. Practice correct handwashing. Wash your hands often with soap and water. Use hand textile screen maker when you can't wash your hands. Stay [...] about whichpneumococcal vaccine is best for you.Call [phone] any of these occur: 7 General Instructions [facility] Emergency Department [address] [place] [address] Phone #: ext- [phone] 05/15/2021 11:45 Patient: ETIENNE HOUSTON Sex: F : 1990 Age: 31y [...] Symptoms that get worse or not improving [phone] [employer]. [address] [place] [address]. All rights reserved. This information is not intendedas a substitute for professional medical care. Always follow your healthcare professional's instructions. You have been given the following additional information: Asthma, Acute (Adult) Pneumonia (Adult) 8 General Instructions [facility] Emergency Department [address] [place] [address] Phone #: ext- [phone] 05/15/2021 11:45 Patient: ETIENNE HOUSTON Sex: F : 1990 Age: 31y(Electronically signed by Karina Osuna 05/16/2021 03:24) Name Value Range Interpretation Code Description Data Aura rce(s) Supporting Document(s) ID Date Data Source [id number] 05/15/2021 11:48:00 AM EDT [facility] 1 Clinical Report - Nurses [facility] Emergency Department [address] [place] [address] Phone #: ext- [phone] 05/15/2021 11:45 Patient: ETIENNE HOUSTON Sex: F : 1990 Age: 31yTRIAGEArrived by private vehicle. Historian: patient. Accompanied by spouse (in vehicle).Triage time: late entry - 11:50 05/15/2021. Acuity: LEVEL 3.Chief Complaint: (Heart palpitations).Alert. No acute distress.Onset. (1 month ago). ( Pt states she is currently a patient at the [facility] at [facility] for breast cancer,but "haven't gotten them in a while due to low neutrophils"; Pt states she feels "my heart is beating a bitquicker than normal and feels like it's beating out of my chest"; [facility]. Pt denies any other symptoms besides some intermittent nausea anddizziness.). She has had nausea (intermittent). No difficulty breathing or vomiting.Treatment HARDNESS TESTER:None.SEPSIS SCREEN: SIRS SCREEN NEGATIVE: heart rate greater [...] Yancey R.N. 2 Clinical Report - Nurses [facility] Emergency Department [address] [place] [address] Phone #: ext- [phone] 05/15/2021 11:45 Patient: ETIENNE HOUSTON Sex: F : 1990 Age: 31y [...] soft and 3 Clinical Report - Nurses [facility] Emergency Department [address] [place] [address] Phone #: ext- [phone] 05/15/2021 11:45 [id number] Sex: F : 1990 Age: 31y nontender. No emesis noted. EXTREMITIES: No lower extremity edema. SKIN: Skin is warm and dry. Normal skin turgor. Skin is non-tender. --12:03 05/15/21 Lucie Yancey R.N.NURSING PROGRESS NOTESCardiac monitor, NIBP monitor and pulse oximeter placed on patient; sales floor team leader- Lead II; monitoralarms on; monitor strip added [...] HR: 102 (regular). --12:28 05/15/21 Baltazar Clinton 12:05/15/21. BP: 117/92 taken while standing. MAP: 100. [...] to CT by wheelchair with mask and safety relief valve technician. --14:43 05/15/21 Glorieta dolphin trainer, YULISA Odell Tech1 Monitoring of patient in [...] easy reach. 4 Clinical Report - Nurses [facility] Emergency Department [address] [place] [address] Phone #: ext- [phone] 05/15/2021 11:45 Patient: ETIENNE HOUSTON Sex: F : 1990 Age: 31ySet expectations: advised patient of rounding protocol timing and asked if they needed anything else at thistime. The patient is calm and resting quietly. Patient waiting for lab and radiology results. --15: Griselda Montilla R.N.13:05/15/2021 Site #1 started via IV in the left antecubital space with an 20g angiocath, with aseptictechnique and good blood return; one attempt. Saline lock flushed with 10 mL saline. --13:05/15/21Lucie Yancey R.N.13:05/15/2021 Two (2) unsuccessful IV access attempts including the right upper arm and antecubitalspace. Applied bandaid and manual pressure. --13:05/15/21 Lee Clinton entry - 14:15 05/15/21. Monitoring [...] RR: 20. O2 saturation: 99%. --17:07 05/15/21 Fixya Joser , ER Ydmc159:30 05/15/21. BP: 110/68. MAP: 82. HR: 116. RR: 19. O2 saturation: 99%. --17:07 05/15/21 Fixya Jose R, ER [id number] entry - 17:00 05/15/21. Monitoring of patient [...] Montilla R.N. 5 Clinical Report - Nurses [facility] Emergency Department [address] [place] [address] Phone #: ext- [phone] 05/15/2021 11:45 Patient: ETIENNE HOUSTON Sex: F : 1990 Age: 31y 17:13 [...] or swelling. IV flushed thoroughly. --17:55 05/15/21 Montilla, Griselda, R.N. Monitoring of patient in place. Patient [...] --18:17 05/15/21 Griselda Montilla R.N.DISPOSITION / DISCHARGE [place] Com[place] Scale: 15- eyes open- spontaneous (4); [...] Patient verbalized understanding. Written instructions provided in Burundian. The patient was discharged by the physician. She was discharged home and accompanied by spouse. She left ambulatory and via private vehicle. Patient driving. --18:20 05/15/21 Griselda Montilla R.N. 18:10 05/15/21. BP: 115/77. MAP: 89. HR: 112. RR: 18. O2 saturation: 99% on room air. Temp: 98 F (oral). Pain level now: 0/10. --18:20 05/15/21 Griselda Montilla R.N. 6 Clinical Report - Nurses [facility] Emergency Department [address] [place] [address] Phone #: ext- [phone] 05/15/2021 11:45 [facility]: [id number] Sex: F : 1990 Age: 31y late entry - 18:06 05/15/21. ( aware of vital signs prior to d/c). --18:21 05/15/21 Griselda Montilla R.N.Locked/Released at 05/15/2021 18:22 by Griselda Montilla R.N. Name Value Range Interpretation Code Description Data Aura rce(s) Supporting Document(s) ID Date Data Source [id number] 05/15/2021 11:48:00 AM EDT [facility] 1 Clinical Report - Physicians/Mid Levels [facility] Emergency Department [address] [place] [address] Phone #: ext- [phone] 05/15/2021 11:45 Patient: ETIENNE HOUSTON Sex: F : 1990 Age: 31y Time [...] HISTORY 2 Clinical Report - Physicians/Mid Levels [facility] Emergency Department [address] [place] [address] Phone #: ext- [phone] 05/15/2021 11:45 Patient: ETIENNE HOUSTON Sex: F : 1990 Age: 31y Never smoker. No alcohol use or drug use.ADDITIONAL NOTESThe nursing notes have been reviewed.PHYSICAL EXAMVital Signs: 05/15/2021 11:56 BP: 114/83. MAP: 93. HR: 113. RR: 18. O2 saturation: 98% on room air.Temp: 98.7 F. Pain level now: 11/01. Have been reviewed. Oxygen saturation normal.Appearance: Alert. [...] (Reference) 3 Clinical Report - Physicians/Mid Levels [facility] Emergency Department [address] [place] [address] Phone #: ext- [phone] 05/15/2021 11:45 Patient: ETIENNE HOUSTON Sex: F : 1990 Age: 31y CT CTA CHEST NON-CORONARY [place] [address] [place] [address] PHONE: [phone] FAX: [phone] -- Name .................. : CELSO De Leon Acct Number.................. : [id number] ROOM. ................. : TR-03 MR Number ................... : [id number] Stay type ............. : E/R Discharge Date......... ... : Admit Date ......... : 05/15/21 Admit Phys .................... : JACKMAURICIO Date of ....... : 1990 Family Phys ................... : NO PCP Phone .................. : [phone] Age ................................ : 31 Film# .................. .:[id number] Sex ................................. : F -- Unsigned transcriptions are preliminary reports and do not represent a medical or legal document CT CTA CHEST NON-CORONARY W C [id number] COMPLETE:05/15/21 15:04 KAYLI 63553 Reason(s): hx of breast cancer sob, tachycardia [...] -- IMPRESSION: -- -- Page 1of 2 [place] [address] PHONE: [phone] FAX: [phone] -- Name .................. : CELSO De Leon Acct Number.................. : [id number] 4 Clinical Report - Physicians/Mid Levels [facility] Emergency Department [address] [place] [address] Phone #: ext- [phone] 05/15/2021 11:45 Patient: ETIENNE HOUSTON Sex: F : 1990 Age: 31y ROOM. ................. : TR-03 MR Number ................... : [id number] Stay type ............. : E/R Discharge Date......... ... : Admit Date ......... : 05/15/21 [facility] .................... [facility] Date of ....... : 1990 Family Phys ................... : NO PCP Phone .................. : [phone] Age ................................ : 31 Film# .................. .:[id number] Sex ................................. : F -- Unsigned transcriptions are preliminary reports and do not represent a medical or legal document CT CTA CHEST NON-CORONARY W Stacey [address]59[address] COMPLETE:05/15/21 15:04 KAYLI 32286 Reason(s): hx of breast cancer sob, tachycardia r/o PE -- -- 1. No pulmonary embolism. 2. Groundglass parenchymal opacities left upper lobe and left lower lobe. These are nonspecific. Differential diagnosis includes pneumonia and pneumonitis. Covid is a possibility. -- -- Electronically Reviewed and Signed By DCTNAME SIGNDATESANTA -- Transcribe Initials: MANOJ , Transcribe Date: 05/15/21 15:24, Dictation Date: -- -- <<REPDIST>> -- -- -- -- Page 2of 2 --CT CTA AORT ILIOFEM RNOFFW: (LAISHA: 05/15/2021 14:18) ( [facility] 05/15[facility] 14:20) CanceledReason(s): shortness of breath hx of breast cancer tachycardia r/o PEReason(s): shortness of breath hx of breast cancer tachycardia r/o PETRANSPORTATION: WC IV? IV?(Yes) O2? Oxygen?(Yes) RBeta-HCG, Quant Serum: (LAISHA: 05/15/2021 12:22) ( [facility] 05/15/2021 14:07) Final results Test Result Flag Units (Reference) HCG QUANT 4.8 mIU/mL Interpretation: Less than 5 mU/mL: Negative6-10 mU/mL: Borderline (suggest repeat in 48 hours) >10: PositiveApprox HCG range (mU/mL) Weeks post LMP 5.4-708 mU/mL 3-4 Ejfnf822- 00920 mU/mL 5-6 Weeks 4059-889337 mU/mL 7-8 Asihx99939-748213 mU/mL 9-10 Weeks 53376-72616 mU/mL 12-14 Ithxq05366-16382 mU/mL 15-16 Weeks 8240-43444 mU/mL 17-18 WeeksBeta-HCG, Qual Serum: (LAISHA: 05/15/2021 12:22) ( MsgRcvd 05/15/2021 13:08) Final results Test Result Flag Units (Reference) HCG SERUM QUAL INDETERMI (NORMAL: NEGAT HCG SERUM QL REENTER INDETERMI (NORMAL: NEGAT { KIT LOT # [id number] ){ KIT EXP DATE09/21/22 ){ PROCEDURAL CONTROL VALID)CBC w Diff: (LAISHA: 05/15/2021 12:22) ( MsgRcvd 05/15/2021 12:37) Final results 5 Clinical Report - Physicians/Mid Levels [facility] Emergency Department [address] [place] [address] Phone #: ext- [phone] 05/15/2021 11:45 Patient: ETIENNE HOUSTON Sex: F : 1990 Age: 31y [...] Male GFR Interprentation 20-49 yrs >60 mL/min Cbhkwn12-93 yrs >56 mL/min Normal 60-69 yrs >49 mL/min Normal 70-79yrs>42 mL/min Normal 80 and above >35 mL/min Normal Female GFR 6 Clinical Report - Physicians/Mid Levels [facility] Emergency Department [address] [place] [address] Phone #: ext- [phone] 05/15/2021 11:45 Patient: ETIENNE HOUSTON Sex: F : 1990 Age: 31yInterpretation 20-39 yrs >60 mL/min Normal 40-49 yrs >58 mL/minNormal 50-59 yrs >51 mL/min Normal 60-69 yrs >45 mL/min Qralbh97-52 yrs >39 mL/min Normal 80 and above [...] VenousThrombosis, Pulmonary Embolus, Tissue heart valves, Acute AK Atrial Fibrillation, Valvular heart diseaseand recurrent Systemic Embolism. - International Normalized Ratio (INR): 2.5 - 3.5 forMechanical Prosthetic valve.Troponin-T: (LAISHA: 05/15/2021 12:22) ( [facility] 05/15/2021 13:17) Final results Test Result Flag Units (Reference) TROPONIN T <0.01 NG/ML (0.00 - 0.10) TROPONIN T0.1 ng/ml Recommended as the clinical threshold value forTroponin T.EKG: (LAISHA: 05/15/2021 12:07) ( [facility] 05/15/2021 14:59) In SabattusChest Portable 1 View: (LAISHA: 05/15/2021 12:07) ( [facility] 05/15/2021 13:54) Final results [place] [address] PHONE: [phone] FAX: [phone] Name .................. : CELSO CLIFTON Haley Acct Number.................. : [id number] ROOM. ................. : TR-03 Number ................... : [id number] Stay type ............. : E/R Discharge Date......... ... : Admit Date ......... : 05/15/21 Admit Phys .................... : JACKCA Date of ....... : 1990 Family Phys ................... : Phone .................. : [phone] Age ................................ : 31 Film# .................. .:[id number] Sex ................................. : F Unsigned transcriptions are preliminary reports and do not represent a medical or legal document CHEST PORTABLE [id number] COMPLETE:05/15/21 12:07 Reason(s): Shortness of Breath PORTABLE CHEST SINGLE VIEW 12:26 PM HISTORY: Shortness of breath COMPARISON: None. 7 Clinical Report - Physicians/Mid Levels [facility] Emergency Department [address] [place] [address] Phone #: ext- [phone] 05/15/2021 11:45 Patient: ETIENNE HOUSTON Sex: F : 1990 Age: 31y [...] MD , 05/15/21 13:53, SANTA Transcribe Initials: SILVIA, Transcribe Date: 05/15/21 12:38, Dictation Date: Copy [...] adequate; 8 Clinical Report - Physicians/Mid Levels [facility] Emergency Department [address] [place] [address] Phone #: ext- [phone] 05/15/2021 11:45 ---- Patient: ETIENNE HOUSTON [facility] [id number] Sex: F : 1990 Age: 31y transportation [...] Pharmacy - USE Rx DISCOUNT CARD: $83.23, BIN:[id number], PCN:BERNARDINO, Group:EMR, ID:[id number]. Pharmacy - [facility] - [address] ; [place] [address]. . Augmentin 875 mg-125 mg tablet Take 1 tablet twice a day for 7 days -- Dispense 14 tablet. Refills: 0. Substitution permitted. Note to Pharmacy - USE Rx DISCOUNT CARD: $83.23, BIN:[id number], PCN:BERNARDINO, Group:[id number], ID:[id number]. Pharmacy - [facility] #92 - [address] ; [place] [address]. FaxNumber: . Zithromax Z-Jesse 250 mg tablet Take 2 tablet once a day for 5 days -- then 1 tab daily x 4 days. Dispense 1 packet. Refills: 0. Substitution permitted. Note to Pharmacy - USE Rx DISCOUNT CARD: $80.55, BIN:[id number], PCN:BERNARDINO, Group:[id number], ID:[id number]. Pharmacy - [facility] #42 - [address] ; [place] [address]. . albuterol sulfate HFA 90 mcg/actuation aerosol inhaler Inhale 2 puff four times a day for 30 days -- as needed for wheezing. Dispense 18 gram. Refills: 0. Substitution permitted. Note to Pharmacy - USE Rx DISCOUNT CARD: $8.03, BIN:[id number], PCN:BERNARDINO, Group:EMR, ID:[id number]. 9 Clinical Report - Physicians/Mid Levels [facility] Emergency Department [address] [place] [address] Phone #: ext- [phone] 05/15/2021 11:45 Patient: ETIENNE HOUSTON Sex: F : 1990 Age: 31y Pharmacy - [facility] #04 - [address] ; [place] [address]. . Follow-up: Follow up with your healthcare provider in three if not better. Reason for referral: evaluation. Summary of care provided to patient via paper.(Electronically signed by milabentKarina 05/16/2021 03:24) Name Value Range Interpretation Code Description Data Aura rce(s) Supporting Document(s) ID Date Data Source [id number] 05/15/2021 07:48:00 [place] [address] RESPIRATORY CARE REPORT ==== ---------NAME------- NUMBER SEX AGE ADMIT DISC. XRAY# F/C MARTHA De Leon [id number] F 31 05/15/21 05/15/21 [id number] NA E/R DATE OF : 1990 M/R# [id number] #: [id number] TR-03 LOCATION: EMERGENCY DEPT EKG [id number] COMP LETE:05/15/21 14:59 ED 81099 PHYSICIAN: THAO Name Value Range Interpretation Code Description Data Aura rce(s) Supporting Document(s) ID Date Data Source [id number] 05/15/2021 05:40:00 PM EDT [facility] [address] [place] [address] PHONE: [phone] FAX: [phone] Name .................. : CELSO De Leon Acct Number.................. : [id number] ROOM. ................. : TR-03 Number ................... : [id number] Stay type ............. : E/R Discharge Date......... ... : Admit Date ......... : 05/15/21 Admit Phys .................... : THAO Date of ....... : 1990 Family Phys ................... : NO PCP Phone .................. : [phone] Age ................................ : 31 Film# .................. .:[id number] Sex ................................. : F Unsigned transcriptions are preliminary reports and do not represent a medical or legal document CT CTA CHEST NON-CORONARY Christopher Ibarra 88081 COMPLETE:05/15/21 15:04 KAYLI 42149 Reason(s): hx of breast cancer sob, tachycardia [...] ABDOMEN: Unremarkable. IMPRESSION: Page 1 of 2 [place] [address] PHONE: [phone] FAX: [phone] Name .................. : CELSO De Leon [facility] Number.................. : [id number] ROOM. ................. : TR-03 Number ................... : [id number] Stay type ............. : E/R Discharge Date......... ... : Admit Date ......... : 05/15/21 Admit Phys .................... : THAO Date of ....... : 1990 Family Phys ................... : NO PCP Phone .................. : [phone] Age ................................ : 31 Film# .................. .:[id number] Sex ................................. : F Unsigned transcriptions are preliminary reports and do not represent a medical or legal document CT CTA CHEST NON-CORONARY W C 78189 COMPLETE:05/15/21 15:04 KAYLI Reason(s): hx of breast cancer sob, tachycardia [...] rce(s) Supporting Document(s) ID Date Data Source [id number] 05/15/2021 04:40:00 PM EDT [facility] Name Value Range Interpretation Code Description Data Aura rce(s) Supporting Document(s) COVID19 Case rprt NOT DETECTED [facility] This lab was ordered by [facility] and reported by [facility]. ID Date Data Source [id number] 05/15/2021 05:01:00 PM EDT [facility] NOT DETECTEDNOT DETECTED{ PROC EDURAL CONTROL VALID [...] rce(s) Supporting Document(s) ID Date Data Source [id number] 05/15/2021 01:53:00 PM EDT [facility] [address] [place] [address] PHONE: [phone] FAX: [phone] Name .................. : [id number] ROOM. ................. : TR-03 Number ................... : [id number] Stay type ............. : E/R Discharge Date......... ... : Admit Date ......... : 05/15/21 Admit Phys .................... : [facility] Date of ....... : 1990 Family Phys ................... : Phone .................. : [phone] Age ................................ : 31 Film# .................. .:[id number] Sex ................................. : F Unsigned transcriptions are preliminary reports and do not represent a medical or legal document CHEST PORTABLE [id number] COMPLETE:05/15/21 12:07 Reason(s): Shortness of Breath PORTABLE [...] rce(s) Supporting Document(s) ID Date Data Source [id number] 05/15/2021 02:06:00 PM EDT [facility] Name Value Range Interpretation Code Description Data Aura rce(s) Supporting Document(s) Choriogonadotropin.intact [Units/volume] in Serum or Plasma 4.8 mIU/m L [facility] Interpr etation: Less than 5 mU/mL: Negative 6-10 mU/mL: Borderline (suggest repeat in 48 hours) >10: Positive Approx HCG range (mU/mL) Weeks post LMP 5.4-708 mU/mL 3-4 Weeks 217-67240 mU/mL 5-6 Weeks 4059-715510 mU/mL 7-8 Weeks 06846-477988 mU/mL 9-10 Weeks 95264-91650 mU/mL 12-14 Weeks 67481-78096 mU/mL 15-16 Weeks 8240- 13336 mU/mL 17-18 Weeks ID Date Data Source [id number] 05/15/2021 01:17:00 PM EDT [facility] Name Value Range Interpretation Code Description Data Aura rce(s) Supporting Document(s) TROPONIN T <0.01 NG/ML 0.00 - 0.10 [facility] ospital TROPONIN T0.1 ng/ml Recommended as the c linical threshold value forTroponin T. ID Date Data Source [id number] 05/15/2021 01:08:00 PM EDT [facility] Name Value Range Interpretation Code Description Data Aura rce(s) Supporting Document(s) Lipase [Enzymatic activity/volume] in Serum or Plasma 31 U/L 13 - 60 [facility] ID Date Data Source [id number] 05/15/2021 01:08:00 PM EDT [facility] Name Value Range Interpretation Code Description Data Aura rce(s) Supporting Document(s) COMPREHENSIVE METABOLIC PANEL [facility] COMPREHENSIVE METABOLIC PANEL Sodium [Moles/volume] in Serum or Plasma 139 mEq/L 134 - 153 [facility] Potassium [Moles/volume] in Serum or Plasma 4.3 mEq/L 3.6 - 5.0 [facility] Chloride [Moles/volume] in Serum or Plasma 103 mEq/L 98 - 107 [facility] Carbon dioxide, total [Moles/volume] in Serum or Plasma 24 MEQ/L 22 - 30 [facility] Glucose [Mass/volume] in Serum or Plasma 93 MG/DL 70 - 99 [facility] BUN 11 MG/DL 7 - 21 [facility] al Creatinine [Mass/volume] in Serum or Plasma 0.7 MG/DL 0.7 - 1.5 [facility] BUN/CREAT 16 8 - 27 [facility] al Protein [Mass/volume] in Serum or Plasma 7.3 G/DL 6.3 - 8.2 [facility] Albumin [Mass/volume] in Serum or Plasma 4.7 G/DL 3.9 - 5.0 [facility] Globulin [Mass/volume] in Serum by calculation 2.6 GM/DL 2.4 - 3.2 [facility] A/G RATIO 1.8 0.8 - 2.0 [facility] Calcium [Mass/volume] in Serum or Plasma 9.8 MG/DL 8.4 - 10.2 [facility] Bilirubin.total [Mass/volume] in Serum or Plasma <0.7 MG/DL 0.2 - 1.3 [facility] Alkaline phosphatase [Enzymatic activity/volume] in Serum or Plasma 87 U/L 38 - 126 [facility] Aspartate aminotransferase [Enzymatic activity/volume] in Serum or Plasma 23 U/L 5 - 40 [facility] Alanine aminotransferase [Enzymatic activity/volume] in Seru m or Plasma 38 U/L 7 - 56 [facility] Anion gap 3 in Serum or Plasma 12.0 mmol/L 8.0 - 16.0 [facility] AGE 31 yrs [facility] al NON-AA GFR >60 mL/min [facility] Hosp ital AFR AMER GFR >60 mL/min [facility] Ho spital Male GFR In terprentation [...] >32 mL/min Normal ID Date Data Source [id number] 05/15/2021 01:06:00 PM EDT [facility] Name Value Range Interpretation Code Description Data Aura rce(s) Supporting Document(s) HCG SERUM QUAL INDETERMI NORMAL: NEGATIVE [facility] HCG SERUM QL REENTER INDETERMI NORMAL: NEGATIVE [facility] { KIT LOT # [id number] ){ KIT EXP DATE 09/21/22 ){ PROCEDURAL CONTROL VALID ) ID Date Data Source [id number] 05/15/2021 01:01:00 PM EDT [facility] Name Value Range Interpretation Code Description Data Aura rce(s) Supporting Document(s) Prothrombin time (PT) 12.5 SECONDS 11.0 - 15.5 [facility] INR in Platelet poor plasma by Coagulation assay 0.92 0.93 - 1. 23 L [facility] aPTT in Blood by Coagulation assay 39.5 SECONDS 24.8 - 36.7 H [facility] \\BLDo\\INR INTERPRETATION\\BLDx\\ Therapeutic range for Coumadin and related oral anticoagulants. - International Normalized Ratio (INR): 2.0 - 3.0 for Venous Thrombosis, Pulmonary Embolus, Tissue heart valves, Acute AK Atrial Fibrillation, Valvular heart disease and recurrent Systemic Embolism. - International Normalized Ratio (INR): 2.5 - 3.5 for Mechanical Prosthetic valve. ID Date Data Source [id number] 05/15/2021 12:37:00 PM EDT [facility] Name Value Range Interpretation Code Description Data Aura rce(s) Supporting Document(s) CBC W/AUTOMATED DIFF [facility] COMPLETE BLOOD COUNT Leukocytes [#/volume] in Blood by Automated count 6.8 10^3/uL 4.2 - 1 1.0 [facility] Erythrocytes [#/volume] in Blood by Automated count 4.24 10^6/uL 4. 20 - 5.40 [facility] Hemoglobin [Mass/volume] in Blood 12.4 g/dL 12.0 - 16.0 [facility] Hematocrit [Volume Fraction] of Blood by Automated count 37.2 % 3 7.0 - 47.0 [facility] Erythrocyte mean corpuscular volume [Entitic volume] by Auto mated count 87.7 fL 81.0 - 101 [facility] Erythrocyte mean corpuscular hemoglobin [Entitic mass] by Automated count 29.2 pg 27.0 - 34.0 [facility] Erythrocyte mean corpuscular hemoglobin concentration [Mass/volume] by Automated count 33.3 g/dL 31.0 - 36.0 [facility] Erythrocyte distribution width [Ratio] by Automated count 14.9 % 11.5 - 14.5 H [facility] Platelets [#/volume] in Blood by Automated count 208 10^3/uL 150 - 45 0 [facility] Platelet mean volume [Entitic volume] in Blood by Automated count 9.0 fL 7.4 - 10.4 [facility] Neutrophils/100 leukocytes in Blood by Automated count 27.3 % 37. 0 - 80.0 L [facility] Lymphocytes/100 leukocytes in Blood by Manual count 31.0 % 25.0 - 40.0 [facility] Monocytes/100 leukocytes in Blood by Automated count 8.8 % 3.0 - 8.0 H [facility] Hospital Eosinophils/100 leukocytes in Blood by Automated count 31.3 % 0.0 - 7.0 H [facility] Basophils/100 leukocytes in Blood by Automated count 0.7 % 0.0 - 2.5 [facility] Hospital %IG 0.9 % 0.0 - 0.0 H [facility] Hospit al %NRBC 0.3 % 0.0 - 0.0 [facility] [#/volume] in Blood by Automated count 1.86 10^3/uL 2.00 - 6.90 L [facility] Lymphocytes [#/volume] in Blood by Automated count 2.11 10^3/uL 0.60 - 3.40 [facility] Monocytes [#/volume] in Blood by Automated count 0.60 10^3/uL 0.00 - 0.90 [facility] Eosinophils [#/volume] in Blood by Automated count 2.13 10^3/uL 0.00 - 0.70 H [facility] Basophils [#/volume] in Blood by Automated count 0.05 10^3/uL 0.00 - 0.20 [facility] #IG 0.06 10^3/uL 0.00 - 0.10 [facility] H ospital #NRBC 0.02 10^3/uL 0.00 - 0.00 H [facility] osp[facility] MANUAL DIFF NOT INDICATED [facility] RBC MORPH NOT INDICATED [facility] Ho spital ID Date Data Source [id number] 12/25/2020 10:28:00 AM EDT [facility] Name Value Range Interpretation Code Description Data Aura rce(s) Supporting Document(s) Surgical Pathology Consult Laboratory test result [facility] ([facility]) Surgical Pathology Report Name: ETIENNE HOUSTON Collection Date: 12/25/2020 00:00 Received Date: 12/25/2020 10:30 Physician(s): MAGDI PEACE DO HAGHIR, SHAHANDEH F, MD Specimen(s) Received A: Material received for consultation, [facility], [facility], [id number] Clinical History For consultation. 30 year-old lady with right breast mass. Please also do ER, AR, HER2, reflex to FISH. 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 GRADE: 3 VASCULAR [...] is based on a microscopic examination of international account representative sections of tissue. Gross Description Received from [facility] in [place], [place], are 2 H and E stained slides and 1 paraffin block, labeled [id number], with the corresponding pathology report. This report may include one or more immunohistochemical stain results that use analyte specific reagents. All positive and negative controls have been reviewed by the attending pathologist and are satisfactory. The tests were developed and their performance characteristics determined by [facility] Pathology department. They have not been cleared or approved by the US Food and Drug Administration. The FDA has determined that such clearance or approval is not necessary. ID Date Data Source [id number] 12/26/2020 05:06:00 PM [facility] Surgical Pathology ReportName: ALBERTINA HOUSTON RAMRN: [id number] Number: [id number] Date: 12/25/2020 00:00Received Date: 12/25/2020 10:30Physician(s): MAGDI PEACE DO HAGHIR, SHAHANDEH F, MDSpecimen(s) ReceivedA: Material received for consultation, [facility], [facility],[id number] HistoryFor consultation. 30 year-old lady with right breast mass. Please alsodo ER, AR, HER2, reflex to FISH.DiagnosisBREAST, RIGHT, NEEDLE BIOPSY ([id number], 12/20/20): INVASIVE DUCTALCARCINOMA.GRADE: 3VASCULAR INVASION: AbsentDCIS: Absent CALCIFICATIONS: PresentESTROGEN RECEPTORS: Negative (0% staaly cai).PROGESTERONE RECEPTORS: Low Positive (1-10%).HER2: Negative (1+). NoteI completely agree with your diagnosis of high-grade invasive ductalcarcinoma. Thank you for letting me see this case in consultation.Electronically Signed By Aldair Lin M.D., Attending Pathologist12/26/2020 17:06:54 Unless 'gross-only' is specified, the final diagnosis is based on amicroscopic examination of international account representative sections of tissue.Gross DescriptionReceived from [facility] in [place], [place], are 2 H and Estained slides and 1 paraffin block, labeled [id number], with thecorresponding pathology report. This report may include one or more immunohistochemical stain results thatuse analyte specific reagents. All positive and negative controls havebeen reviewed by the attending pathologist a nd are satisfactory. The testswere developed and their performance characteristics determined by [facility] Pathology department. They have not been cleared or approved by the USFood and Drug Administration. The FDA has determined that such clearanceor approval is not necessary. Name Value Range Interpretation Code Description Data Aura rce(s) Supporting Document(s) ID Date Data Source [id number] 10/27/2020 02:29:00 PM EST [facility] ([facility]) Name Value Range Interpretation Code Description Data Aura rce(s) Supporting Document(s) Influenza virus B RNA [Presence] in Unsp ecified specimen by Probe and target amplification method Laboratory test result [facility] ([facility]) Influenza virus A RNA [Presence] in Unsp ecified specimen by Probe and target amplification method Laboratory test result [facility] ([facility]) ID Date Data Source [id number] 10/27/2020 02:21:00 PM EST [facility] ([facility]) Name Value Range Interpretation Code Description Data Aura rce(s) Supporting Document(s) Laboratory test finding (navigational concept) Laboratory test result [facility] ([facility]) ID Date Data Source [id number] 10/27/2020 02:19:00 PM EST [facility] Name Value Range Interpretation Code Description Data Aura rce(s) Supporting Document(s) SARS coronavirus 2 RNA Not Detected [facility] This lab was ordered by [facility] betsy and reported by [facility]. ID Date Data Source [id number] 10/29/2020 10:51:00 AM EST [facility] Name Value Range Interpretation Code Description Data Aura rce(s) Supporting Document(s) SARS-CoV-2, [facility] Not Detected Not Detected [facility] This nucleic acid amplification test was developed and its performancecharacteristics determined by [employer]. Nucleic acidamplification tests include RT-PCR and TMA. [...] Value Status Description Data Source(s ) Smoking 07/09/2021 12:00:00 AM EDT Never Smoker completed Never S moker eCW1 ([facility]) Smoking 07/06/2021 12:00:00 AM EDT Never Smoker completed Never S moker eCW1 ([facility]) Smoking 06/25/2021 12:00:00 AM EDT Never Smoker completed Never S moker eCW1 ([facility]) Alcohol intake 06/21/2021 12:00:00 AM EDT Lifetime non-drinker (finding) completed Lifetime non-drinker (finding) [facility] Smoking 06/14/2021 12:00:00 AM EDT Never Smoker completed Never S moker eCW1 ([facility]) Smoking 06/14/2021 12:00:00 AM EDT Never Smoker completed Never S moker eCW1 ([facility]) Smoking 06/14/2021 12:00:00 AM EDT Never Smoker completed Never S moker eCW1 ([facility]) Alcohol intake 05/31/2021 12:00:00 AM EDT Lifetime non-drinker (finding) completed Lifetime non-drinker (finding) [facility] Tobacco use and exposure 05/22/2021 12:00:00 AM EDT Never used co mpleted Never used [facility] Smoking 05/22/2021 12:00:00 AM EDT Never smoker completed Never s wiker [facility] Alcohol intake 05/22/2021 12:00:00 AM EDT Lifetime non-drinker (finding) completed Lifetime non-drinker (finding) [facility] Smoking 02/16/2021 12:00:00 AM EDT Never Smoker completed Never S moker eCW1 ([facility]) Smoking 02/16/2021 12:00:00 AM EDT Never Smoker completed Never S moker eCW1 ([facility]) Smoking 01/22/2021 12:00:00 AM EDT Never Smoker completed Never S moker eCW1 ([facility]) Smoking 01/22/2021 12:00:00 AM EDT Never Smoker completed Never S moker eCW1 ([facility]) Smoking 01/22/2021 12:00:00 AM EDT Never Smoker completed Never S moker eCW1 ([facility]) Smoking 01/22/2021 12:00:00 AM EDT Never Smoker completed Never S moker eCW1 ([facility]) Smoking 12/28/2020 12:00:00 AM EDT Never Smoker completed Never S moker eCW1 ([facility]) Smoking 12/28/2020 12:00:00 AM EDT Never Smoker completed Never S moker eCW1 ([facility]) Smoking 12/28/2020 12:00:00 AM EDT Never Smoker completed Never S moker eCW1 ([facility]) Smoking 12/28/2020 12:00:00 AM EDT Never Smoker completed Never S moker eCW1 ([facility]) Smoking 12/28/2020 12:00:00 AM EDT Never Smoker completed Never S moker eCW1 ([facility]) Smoking 12/28/2020 12:00:00 AM EDT Never Smoker completed Never S moker eCW1 ([facility]) Smoking 12/28/2020 12:00:00 AM EDT Never Smoker completed Never S moker eCW1 ([facility]) Smoking 12/28/2020 12:00:00 AM EDT Never Smoker completed Never S moker eCW1 ([facility]) Smoking 12/14/2020 12:00:00 AM EDT Never Smoker completed Never S moker eCW1 ([facility]) Smoking 11/28/2020 12:00:00 AM EST Never Smoker completed Never S moker eCW1 ([facility]) Smoking 11/28/2020 12:00:00 AM EST Never Smoker completed Never S moker eCW1 ([facility]) Vital Signs ID Date Data Source UNK Name Value Range Interpretation Code Description Data Source(s) Body mass index (BMI) [Ratio] 29.99 kg/m2 29.99 kg/m2 eCW1 ([facility]) Body weight 164 [lb_av] 164 [lb_av] eCW1 ([facility]) Body weight 74.39 kg 74.39 kg eCW1 ([facility]) Body height [in_i] eCW1 ([facility]) Respiratory rate 20 /min 20 /min eCW1 ([facility]) Body temperature 97.0 [degF] 97.0 [degF] eCW1 ( [facility]) Systolic blood pressure 124 mm[Hg] 124 mm[Hg] e CW1 ([facility]) Diastolic blood pressure 72 mm[Hg] 72 mm[Hg] eCW1 ([facility]) Heart rate 97 /min 97 /min eCW1 ([facility]) Body weight 75.865 kg 75.865 kg [facility] ([facility]) Body surface area Derived from formula 1.77 m2 1.77 m2 [facility] ([facility]) Systolic blood pressure 96 mm[Hg] 96 mm[Hg] M [facility] ([facility]) Diastolic blood pressure 60 mm[Hg] 60 mm[Hg] [facility] ([facility]) Heart [facility] 82 /min 82 /min [facility] Body temperature 96.7 [degF] 96.7 [degF] [facility] Body height 62 [in_i] 62 [in_i] [facility] ([facility], ) 5'2" Body weight 167.25 [lb_av] 167.25 [lb_av] MED[facility] T ([facility]) Body mass index (BMI) [Ratio] 30.6 kg/m2 30.6 k g/m2 [facility] [place] body weight 110 [lb_av] 110 [lb_av] MED[facility] T ([facility]) Systolic blood pressure 116 mm[Hg] 116 mm[Hg] [facility] Body weight 73.483 kg 73.483 kg [facility] Body mass index (BMI) [Ratio] 29.63 kg/m2 29.63 kg/m2 [facility] Oxygen saturation in Arterial blood by Pulse oximetry 97 % 97 % [facility] Diastolic blood pressure 70 mm[Hg] 70 mm[Hg] [facility] [facility] Heart rate 100 /min 100 /min [facility] Body weight 74.66 kg 74.66 kg eCW1 ([facility]) Body height [in_i] eCW1 ([facility]) Body mass index (BMI) [Ratio] 30.10 kg/m2 30.10 kg/m2 eCW1 ([facility]) Heart rate 102 /min 102 /min eCW1 ([facility]) Respiratory rate 18 /min 18 /min eCW1 ([facility]) Body temperature 97.1 [degF] 97.1 [degF] eCW1 ( [facility]) Systolic blood pressure 104 mm[Hg] 104 mm[Hg] e CW1 ([facility]) Diastolic blood pressure 62 mm[Hg] 62 mm[Hg] eCW1 ([facility]) Body weight 164.6 [lb_av] 164.6 [lb_av] eCW1 ([facility]) Systolic blood pressure 100 mm[Hg] 100 mm[Hg] [facility] Diastolic blood pressure 72 mm[Hg] 72 mm[Hg] [facility] Heart rate 94 /min 94 /min [facility] Body height 157.5 cm 157.5 cm [facility] Body weight 74.844 kg 74.844 kg [facility] Body mass index (BMI) [Ratio] 30.18 kg/m2 30.18 kg/m2 [facility] Oxygen saturation in Arterial blood by Pulse oximetry 97 % 97 % [facility] Oxygen saturation in Arterial blood by Pulse oximetry 97 % 97 % [facility] Systolic blood pressure 112 mm[Hg] 112 mm[Hg] [facility] Diastolic blood pressure 70 mm[Hg] 70 mm[Hg] [facility] Heart rate 90 /min 90 /min [facility] Body height 157.5 cm 157.5 cm [facility] Body weight 75.116 kg 75.116 kg [facility] Body mass index (BMI) [Ratio] 30.29 kg/m2 30.29 kg/m2 [facility] Body weight 171 [lb_av] 171 [lb_av] eCW1 ([facility]) Body weight 77.56 kg 77.56 kg eCW1 ([facility]) Body height [in_i] eCW1 ([facility]) Body mass index (BMI) [Ratio] 31.27 kg/m2 31.27 kg/m2 eCW1 ([facility]) Heart rate 117 /min 117 /min eCW1 ([facility]) Respiratory rate 18 /min 18 /min eCW1 ([facility]) Body temperature 96.2 [degF] 96.2 [degF] eCW1 ( [facility]) Systolic blood pressure 124 mm[Hg] 124 mm[Hg] e CW1 ([facility]) Diastolic blood pressure 84 mm[Hg] 84 mm[Hg] eCW1 ([facility]) Body weight 174 [lb_av] 174 [lb_av] eCW1 ([facility]) Body weight 78.93 kg 78.93 kg eCW1 ([facility]) Body height [in_i] eCW1 ([facility]) Body mass index (BMI) [Ratio] 31.82 kg/m2 31.82 kg/m2 eCW1 ([facility]) Heart rate 111 /min 111 /min eCW1 ([facility]) Respiratory rate 18 /min 18 /min eCW1 ([facility]) Body temperature 96.7 [degF] 96.7 [degF] eCW1 ( [facility]) Systolic blood pressure 118 mm[Hg] 118 mm[Hg] e CW1 ([facility]) Diastolic blood pressure 80 mm[Hg] 80 mm[Hg] eCW1 ([facility]) Body weight 171 [lb_av] 171 [lb_av] eCW1 ([facility]) Body weight 77.56 kg 77.56 kg eCW1 ([facility]) Body height [in_i] eCW1 ([facility]) Body temperature 97.9 [degF] 97.9 [degF] eCW1 ( [facility]) Systolic blood pressure 124 mm[Hg] 124 mm[Hg] e CW1 ([facility]) Diastolic blood pressure 82 mm[Hg] 82 mm[Hg] eCW1 ([facility]) Body mass index (BMI) [Ratio] 31.27 kg/m2 31.27 kg/m2 eCW1 ([facility]) Heart rate 92 /min 92 /min eCW1 ([facility]) Respiratory rate 18 /min 18 /min eCW1 ([facility]) Body weight 171 [lb_av] 171 [lb_av] eCW1 ([facility]) Body temperature 97.9 [degF] 97.9 [degF] eCW1 ( [facility]) Systolic blood pressure 124 mm[Hg] 124 mm[Hg] e CW1 ([facility]) Diastolic blood pressure 82 mm[Hg] 82 mm[Hg] eCW1 ([facility]) Body weight 77.56 kg 77.56 kg eCW1 ([facility]) Body height [in_i] eCW1 ([facility]) Body mass index (BMI) [Ratio] 31.27 kg/m2 31.27 kg/m2 eCW1 ([facility]) Heart rate 92 /min 92 /min eCW1 ([facility]) Respiratory rate 18 /min 18 /min eCW1 ([facility]) Diastolic blood pressure 76 mm[Hg] 76 mm[Hg] eCW1 ([facility]) Systolic blood pressure 120 mm[Hg] 120 mm[Hg] e CW1 ([facility]) Body weight 173 [lb_av] 173 [lb_av] eCW1 ([facility]) Body weight 78.47 kg 78.47 kg eCW1 ([facility]) Body height [in_i] eCW1 ([facility]) Body mass index (BMI) [Ratio] 31.64 kg/m2 31.64 kg/m2 eCW1 ([facility]) Heart rate 87 /min 87 /min eCW1 ([facility]) Respiratory rate 18 /min 18 /min eCW1 ([facility]) Body temperature 97.2 [degF] 97.2 [degF] eCW1 ( [facility]) Body weight 172 [lb_av] 172 [lb_av] eCW1 ([facility]) Body height [in_i] eCW1 ([facility]) Body mass index (BMI) [Ratio] 31.46 kg/m2 31.46 kg/m2 eCW1 ([facility]) Systolic blood pressure 122 mm[Hg] 122 mm[Hg] e CW1 ([facility]) Diastolic blood pressure 82 mm[Hg] 82 mm[Hg] eCW1 ([facility]) Heart rate 119 /min 119 /min MEDENT ([facility]) Body temperature 97.3 [degF] 97.3 [degF] MEDENT ([facility]) Oxygen saturation in Arterial blood by Pulse oximetry 95 % 95 % MEDENT ([facility]) Patient Treatment Plan of Care Planned Activity Planned Date Details Description Data Source (s) Lidocaine 25 MG/ML / Prilocaine 25 MG/ML Topical Cream 06/25/2021 12:00:00 AM EDT eCW1 ([facility]) carvedilol 6.25 MG Oral Tablet 06/21/2021 12:00:00 AM EDT [facility] empagliflozin 10 MG Oral Tablet 06/21/2021 12:00:00 AM EDT [facility] sacubitril 24 MG / valsartan 26 MG Oral Tablet 05/31/2021 12:00:00 AM EDT [facility] Furosemide 20 MG Oral Tablet 05/31/2021 12:00:00 AM EDT [facility] carvedilol 3.125 MG Oral Tablet 05/31/2021 12:00:00 AM EDT [facility] sacubitril 24 MG / valsartan 26 MG Oral Tablet 05/22/2021 12:00:00 AM EDT [facility] 200 ACTUAT Albuterol 0.09 MG/ACTUAT Metered Dose Inhal er [ProAir] 05/15/2021 12:00:[address] [facility] benzonatate 100 MG Oral Capsule 05/15/2021 12:00:00 AM EDT [facility] Amoxicillin 875 MG / Clavulanate 125 MG Oral Tablet 05/15/20 12:00:00 AM EDT [facility]
--- NOTE | 2021-07-10 18:42 | POST-OPPD ---
Postoperative Procedure Note Date Of Procedure: Jul 10, 2021 PREOPERATIVE DIAGNOSIS: Right breast cancer. Right breast acquired deformity. POSTOPERATIVE DIAGNOSIS: same PROCEDURE: Immediate right breast reconstruction with breast reduction approach s/p two lumpectomies. SURGEON: Dr Riddle OUTSIDE SALES PROFESSIONAL: Dr Cash. ANESTHESIA: general ESTIMATED BLOOD LOSS: 100 cc total. FINDINGS: Large medial breast lumpectomy. Right upper quadrant lumpectomy. SPECIMENS: additional breast tissue 622gm COMPLICATIONS: none REPLACED: none DRAINS: 10 mm BEATRIZ x 1 POSTOPERATIVE CONDITION: stable MARIEL RIDDLE DO Jul 10, 2021 18:42
--- NOTE | 2021-07-10 18:43 | ROOPDOC ---
[facility] Report Of Operation Report of Operation DATE OF PROCEDURE: 07/10/21 PREOPERATIVE DIAGNOSIS: Right breast cancer. Right breast acquired deformity. POSTOPERATIVE DIAGNOSIS: same PROCEDURE: Immediate right breast reconstruction with breast reduction approach s/p two lumpectomies. SURGEON: Dr Riddle LACQUER COATER: Dr Cash. ANESTHESIA: general ESTIMATED BLOOD LOSS: 100 cc total. FINDINGS: Large medial breast lumpectomy. Right upper quadrant lumpectomy. SPECIMENS: additional breast tissue 622gm COMPLICATIONS: none REPLACED: none DRAINS: 10 mm BEATRIZ x 1 POSTOPERATIVE CONDITION: stable DESCRIPTION OF PROCEDURE: DESCRIPTION OF PROCEDURE: This is a 31-year-old female who has been diagnosed with right breast cancer. Patient is scheduled for right quadrantectomy medial side of the breast and right upper quadrant lumpectomy with sentinel lymph node biopsy with oncoplastic mammoplasty by our service. Due to patient's underlaying condition, we agreed to do right side only today, and delay the left breast mammoplasty for later date. Risk, benefits, and alternatives of the procedure discussed with the patient in detail. Informed consent obtained in preoperative holding area. She was marked in upright position in preoperative holding area. The distance from sternal notch to new nipple areolar location will be 22 cm. The markings included the area for multiple lumpectomies to be performed by breast service. Patient was brought into the operating room and placed in supine position preoperative antibiotics were given compression stockings placed in on both calves and general anesthesia is induced. First part of the procedure was performed by breast service, Dr. Cash and is dictated separately. After first part of procedure is completed and lumpectomies were carried out, I examined the remaining tissues that were available. Nipple areolar complex is in good viable condition. The tissue remained was superior and inferior parts of the breast . Bipedicle superior and inferior approach was chosen to maintain the vascular supply to the nipple areolar complex. Additional tissue from lateral part of the breast was removed. The mound was recreated, 0 Vicryl sutures were used to conform it. There was deficit at the lower sternal area where original area of cancer was and was excised today. We used 2-0 Vicryl sutures to recreate the sternal attachment to the subcutaneous dermal tissue of the sternal crease of the breast. Than remaining pedicle was deepithelialized using Gilman scissors. 9 cc of Exparel was infiltrated throughout the breast and the pectoralis muscle. Before we started our pillars closure the area of quadrantectomy was reexamined again. Dr. Cash placed marking clips in the area for future identification. The wound is irrigated with gentamicin solution. This started our closure of the pillars with interrupted 3-0 Monocryl sutures. The vertical limb is 7 cm. Excess tissue was measured inferiorly and resected. Total weight of the specimen and additional resected tissue was 622 g. The incisions were closed with interrupted 3-0 Monocryl sutures, followed by 3-0 Monocryl V-Loc suture. Nipple areolar complex was brought in through a separate incision 22 cm from sternal notch. It was secured in place with interrupted 30, 4-0 Monocryl sutures and interrupted 5-0 plain gut suture for the skin. 10 mm BEATRIZ drain was placed through the lateral part of horizontal incision. Xeroform gauze, bulky dressing and a surgical bra was placed. Dr. Cash was essential part of this procedure in providing proper exposure and guidance on areas of lumpectomy and quadrantectomy performed. She was instrumental in achieving meticulous hemostasis as well as help in closure of incisions. Patient tolerated procedure well. She was extubated in operating room without any difficulties and transferred to recovery in stable condition. MARIEL RIDDLE DO Jul 10, 2021 18:43
[2021-07-10] MEDS ORDERED: fentaNYL 100 MCG/2 ML INJECTION (J3010) IV PRN (18:55)
[2021-07-10] MEDS ORDERED: HYDROMORPHONE HCL 0.5 MG/ 0.5 ML SYRINGE (J1170 PER 1) IV PRN (18:55)
[2021-07-10] MEDS ORDERED: MEPERIDINE INJ 25 MG/ML VIAL (J2175) IV PRN (18:55)
[2021-07-10] MEDS: PROMETHAZINE INJ 25 MG/ML VIAL (J2550) IV PRN ×2 (19:02→19:11)
--- NOTE | 2021-07-10 19:10 | HPEPDOC ---
General Date of Admission Jul 10, 2021 at 09:30 Date of Service: Jul 10, 2021 Chief Complaint The patient is a 31-year-old female admitted with a reason for visit of Right Breast Cancer. Source: Patient Home Medications Scheduled Benzonatate (Benzonatate) 150 Mg Capsule, 150 MG PO TIDP, (Reported) Carvedilol (Coreg) 3.125 Mg Tablet, 6.25 MG PO BID, (Reported) Cetirizine HCl (ZyrTEC) 10 Mg Capsule, 10 MG PO DAILY, (Reported) Diphenhydramine HCl (Benadryl) 25 Mg Capsule, 25 MG PO QPM, (Reported) Empagliflozin (Jardiance) 10 Mg Tablet, 10 MG PO DAILY, (Reported) Furosemide (Furosemide) 20 Mg Tablet, 1 TAB PO DAILY, (Reported) Sacubitril/Valsartan (Entresto 24 mg-26 mg Tablet) 1 Each Tablet, 1 TAB PO BID, (Reported) Scheduled PRN Albuterol Sulfate (Proair Hfa) 8.5 Gm Hfa.aer.ad, 2 PUFF INH Q4-6HP PRN for wheezing, (Reported) Metoclopramide HCl (Reglan) 10 Mg Tablet, 10 MG PO Q6H PRN for NAUSEA Ondansetron HCl (Ondansetron HCl) 4 Mg Tablet, 4 MG PO BID PRN for naus ea/vomiting TAKE ONE TAB BY MOUTH TWICE A DAY NEEDED FOR NAUSEA/VOMITING. Allergies Coded Allergies: prochlorperazine (Verified Allergy, Unknown, PALPATATIONS, 07/10/21) SEASONAL ALLERGIES (Verified Adverse Reaction, Intermediate, CONGESTION, 07/10/21) Past Medical History Surgical History Family History Significant Family History: Diabetes Social History * Smoker: Denies Alcohol: Denies Drugs: denies Recent Travel/Sick Contacts: Denies: Recent travel, Recent sick contacts Psychosocial History: No pertinent psych hx A-FIB/CHADSVASC A-FIB History Current/History of A-Fib/PAF?: No Current PO Anticoag Therapy: No Review of Systems Constitutional: Reports: Weakness, Fatigue; Denies: Chills, Fever, Night Sweats Eyes: Denies: Pain, Vision change ENT: Denies: Head Aches, Ear Pain, Dysphagia Skin: Denies: Rash, Lesions, Breakdown Pulmonary: Denies: Dyspnea, Cough Cardiovascular: Denies: Chest Pain, Palpitations, Orthopnea, Paroxysmal Noc. Dyspnea, Lt Headedness Gastrointestinal: Denies: Nausea, Vomiting, Abdominal Pain, Diarrhea Genitourinary: Denies: Dysuria, Frequency, Incontinence, Retention Hematologic: Denies: Bruising, Bleeding Excessively Musculoskeletal: Denies: Neck Pain, Back Pain, Joint Pain, Muscle Pain, Spasms Neurological: Denies: Weakness, Numbness, Change in speech, Confusion Psych: Reports: Mood Normal; Denies: Depression, Memory Issues Physical Examination General Exam: Positive: Alert, Cooperative, No Acute Distress Eye Exam: Positive: PERRLA, Conjunctiva & lids normal, EOMI; Negative: Sclera icteric ENT Exam: Positive: Atraumatic, Mucous membr. moist/pink, Pharynx Normal Neck Exam: Positive: Supple; Negative: JVD, thyromegaly Chest Exam: Positive: Normal air movement, Other Heart Exam: Positive: Rate Normal, Regular Rhythm, Normal S1, Normal S2; Negative: Murmurs, Rubs Telemetry: Positive: No significant arrhythmia Abdomen Exam: Positive: Normal bowel sounds, Soft; Negative: Tenderness, Hepatospenomegaly Extremity Exam: Positive: Normal pulses; Negative: Clubbing, Cyanosis, Edema, Tenderness, Swelling Skin Exam: Positive: Nl turgor and temperature; Negative: Breakdown, Lesion Neuro Exam: Positive: Normal Gait, Normal Speech, Cranial Nerves 3-12 NL, Re flexes 2+ Psych Exam: Positive: Mental status NL, Mood NL, Oriented x 3 Vital Signs Vital Signs Date Time Temp Pulse Resp B/P (MAP) Pulse Ox O2 Delivery O2 Flow Rate FiO2 07/10/21 18:35 97.1 102 12 117/64 (81) 96 Room Air Assessment/Plan Plan / VTE VTE Prophylaxis Ordered?: Yes RAYO BALLESTEROS NP Jul 10, 2021 18:56
[2021-07-10 20:00] VITALS: BP 127/74
[2021-07-10 20:30] VITALS: BP 125/76
[2021-07-10] MEDS: ceFAZolin SOD 2 GM in IV 1 EA IV SCH (20:57)
[2021-07-10 21:00] VITALS: BP 121/78
--- NOTE | 2021-07-10 21:22 | CR.PDOC ---
General Date of Consultation: Jul 10, 2021 Referring Provider: MAGDI PEACE DO Attending Physician: MAGDI PEACE DO Consultation REASON FOR CONSULTATION/CHIEF COMPLAINT: Medical management with history of cardiomyopathy. 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 ALLERGIES: Please see below. HOME MEDICATIONS: Please see below. PAST MEDICAL HISTORY: 1. Asthma 2. Breast cancer 3. Chemo-induced cardiomyopathy PAST SURGICAL HISTORY: 1. 2. [place] teeth removal FAMILY HISTORY: Mother: Diabetes Siblings: Not applicable patient does not have siblings Children: 1 child, no known medical illness Hereditary Diseases: Denies Unexpected deaths due to medical reasons: Denies SOCIAL HISTORY: Tobacco use: Denies ETOH: Denies REVIEW OF SYSTEMS: Negative except for generalized fatigue. PHYSICAL EXAMINATION: VITAL SIGNS: Please see below. GENERAL APPEARANCE: Patient seen drowsy at bedside HEENT: Atraumatic, EOM intact RESPIRATORY: Unlabored breathing, respiratory rate 12; O2 2 L nasal cannula 98% SPO2; no wheezing, rhonchi or rales appreciated CARDIOVASCULAR: RRR, no murmur or gallop ABDOMEN: Soft nondistended/nontender. Normoactive bowel sounds EXTREMITIES: No swelling appreciated. No edema. Radial pulses 2+ pedal pulses 2+ NEUROLOGICAL: oriented x3 PSYCHIATRIC: Mood within normal limit LABORATORY DATA: Please see below. ASSESSMENT/PLAN: 1. R breast Cancer, s/p sentinel LN biopsy, lumpectomy, oncoplasty: - Monitor pt for s/s infection, patient on Ancef - Symptom management/supportive care-analgesics and antiemetic. - Site care per surgical recommendations. - Clear liquid diet, advance as tolerated - Appreciate further recommendations from surgery. - AM labs. 2. Asthma: Without acute exacerbation Patient baseline tolerates room air, s/p sedation and pain medication she has had some shallow breathing in PACU and o2 placed. She denies shortness of breath and on 2 L saturation 98%. Goal to wean O2. -Telemetry and continuous pulse -As needed inhaler -Incentive spirometry 3. Cardiomyopathy: Without acute exacerbation -Last echo on file EF 30% -Monitor fluid balance, I's and O's, urinary output -Patient appears euvolemic, is receiving gentle hydration at 40ml/h of LR since she has been unable to tolerate PO since procedure; d/c once tolerating PO. -Will continue home medications once reconciled to include lasix, beta-zaki and Entresto with parameters given patient on lower side of blood pressure post anesthesia/pain medication -A.m. labs DVT Px: Hep SQ, scds CODE Status: FULL Dispo: Anticipate less than 2 midnight stay Vital Signs/I&O Vital Signs Date Time Temp Pulse Resp B/P (MAP) Pulse Ox O2 Delivery O2 Flow Rate FiO2 07/10/21 19:35 96.5 90 26 139/87 (104) 100 Nasal Cannula 2.0 Laboratory Data CBC/BMP Presurgical lab values unremarkable from June 2015. Lab work pending today Allergies Coded Allergies: prochlorperazine (Verified Allergy, Unknown, PALPATATIONS, 07/10/21) SEASONAL ALLERGIES (Verified Adverse Reaction, Intermediate, CONGESTION, 07/10/21) Home Medications Scheduled Benzonatate (Benzonatate) 150 Mg Capsule, 150 MG PO TIDP for 7 Days, (Reported) Carvedilol (Coreg) 3.125 Mg Tablet, 6.25 MG PO BID for 30 Days, #60 (Reported) Cetirizine HCl (ZyrTEC) 10 Mg Capsule, 10 MG PO DAILY, (Reported) Diphenhydramine HCl (Benadryl) 25 Mg Capsule, 25 MG PO QPM for 30 Days, #60 (Reported) Empagliflozin (Jardiance) 10 Mg Tablet, 10 MG PO DAILY, (Reported) Furosemide (Furosemide) 20 Mg Tablet, 1 TAB PO DAILY for 30 Days, #30 (Reported) Sacubitril/Valsartan (Entresto 24 mg-26 mg Tablet) 1 Each Tablet, 1 TAB PO BID, (Reported) Scheduled PRN Albuterol Sulfate (Proair Hfa) 8.5 Gm Hfa.aer.ad, 2 PUFF INH Q4-6HP PRN for wheezing for 21 Days, #1 (Reported) Metoclopramide HCl (Reglan) 10 Mg Tablet, 10 MG PO Q6H PRN for NAUSEA, #20 Ondansetron HCl (Ondansetron HCl) 4 Mg Tablet, 4 MG PO BID PRN for nausea/vomiting, #30 TAKE ONE TAB BY MOUTH TWICE A DAY NEEDED FOR NAUSEA/VOMITING. RAYO BALLESTEROS NP Jul 10, 2021 21:02
[2021-07-10] MEDS ORDERED: IPRATROPIUM 0.5MG/ALBUTEROL 2.5MG INH SOL UD 3ML (DUONEB) NEB PRN (21:25)
[2021-07-10] MEDS ORDERED: ALBUTEROL 90 MCG/ACT 8GM HFA INHALER INH PRN (21:25)
[2021-07-10] MEDS: HEPARIN SOD (PORCINE) 5000UNITS/ML 1ML VIAL/SYRINGE SQ SCH (21:51)
[2021-07-10] MEDS ORDERED: PROAAER10 INH (21:53)
[2021-07-10] MEDS ORDERED: BANO25TA PO (21:53)
[2021-07-10] MEDS ORDERED: FURO20TA2 PO (21:53)
[2021-07-10] MEDS ORDERED: CETI10TA4 PO (21:53)
[2021-07-10] MEDS ORDERED: CARV6.25 PO (21:53)
[2021-07-10] MEDS ORDERED: HOME MED LIST COMPLETE! XX SCH (21:55)
[2021-07-10 22:00] VITALS: BP 113/73
[2021-07-10 22:19] LABS: HEMATOCRIT 41.9 % (36.0-47.0); HEMOGLOBIN 13.7 g/dl (12.0-15.5); MEAN CORPUSCULAR HEMOGLOBIN 28.7 pg (27.0-33.0); MEAN CORPUSCULAR HGB CONC 32.7 g/dl (32.0-36.5); MEAN CORPUSCULAR VOLUME 87.7 fl (80.0-96.0); PLATELET COUNT, AUTOMATED 302 10^3/uL (150-450); RED BLOOD COUNT 4.78 10^6/uL (4.00-5.40); WHITE BLOOD COUNT 17.3 10^3/uL (4.0-10.0)
[2021-07-10 22:43] LABS: CALCIUM LEVEL 8.6 MG/DL (8.5-10.1); CREATININE FOR GFR 1.15 MG/DL (0.55-1.30); GLOMERULAR FILTRATION RATE 59.4 (>60); MAGNESIUM LEVEL 1.6 MG/DL (1.8-2.4); POTASSIUM SERUM 3.9 MEQ/L (3.5-5.1)
[2021-07-10 23:00] VITALS: BP 113/75
[2021-07-11] VITALS: BP 115/72
[2021-07-11 01:00] VITALS: BP 112/73
[2021-07-11] MEDS: ceFAZolin SOD 2 GM in IV 1 EA IV SCH ×2 (04:36→12:00)
[2021-07-11 05:00] VITALS: BP 110/71
[2021-07-11] MEDS: HEPARIN SOD (PORCINE) 5000UNITS/ML 1ML VIAL/SYRINGE SQ SCH (05:33)
[2021-07-11 06:07] LABS: BASO % 0.1 % (0.0-1.0); HEMATOCRIT 41.6 % (36.0-47.0); HEMOGLOBIN 13.5 g/dl (12.0-15.5); LYMPH # 1.3 10^3/uL (1.5-5.0); LYMPH % 8.2 % (24.0-44.0); MEAN CORPUSCULAR HEMOGLOBIN 28.5 pg (27.0-33.0); MEAN CORPUSCULAR HGB CONC 32.5 g/dl (32.0-36.5); MEAN CORPUSCULAR VOLUME 87.8 fl (80.0-96.0); MONO # 0.8 10^3/uL (0.0-0.8); MONO % 4.8 % (2.0-8.0); NEUTROPHILS # 13.9 10^3/uL (1.5-8.5); NEUTROPHILS % 86.5 % (36.0-66.0); PLATELET COUNT, AUTOMATED 349 10^3/uL (150-450); RED BLOOD COUNT 4.74 10^6/uL (4.00-5.40); WHITE BLOOD COUNT 16.1 10^3/uL (4.0-10.0)
[2021-07-11 06:28] LABS: BLOOD UREA NITROGEN 7 MG/DL (7-18); CALCIUM LEVEL 8.6 MG/DL (8.5-10.1); CARBON DIOXIDE LEVEL 26 MEQ/L (21-32); CHLORIDE LEVEL 104 MEQ/L (98-107); CREATININE FOR GFR 1.11 MG/DL (0.55-1.30); GLOMERULAR FILTRATION RATE > 60.0 (>60); GLUCOSE, FASTING 114 MG/DL (70-100); SODIUM LEVEL 138 MEQ/L (136-145)
[2021-07-11 09:00] VITALS: BP 109/72
[2021-07-11] MEDS ORDERED: CARVedilol 6.25 MG TAB PO SCH (09:00)
[2021-07-11] MEDS ORDERED: ENTRESTO 24-26MG TABLET (SACUBITRIL/VALSARTAN) PO SCH (09:00)
[2021-07-11] MEDS ORDERED: FUROSEMIDE 20 MG TAB PO SCH (09:00)
[2021-07-11 10:00] VITALS: BP 105/57
--- NOTE | 2021-07-11 11:28 | IPNPDOC ---
Subjective General Date Seen: Jul 11, 2021 Subject Chief Complaint/History The patient is a 31-year-old female admitted with a reason for visit of Right Breast Cancer. Patient status post right breast lumpectomies, sentinel lymph node biopsy and immediate reconstruction with oncoplastic mammoplasty. Postop day 1. Patient is doing well today. Pain controlled. She is tolerating diet and ambulating well. Current Medications Current Medications Current Medications Medications (Trade) Dose Ordered Sig/Devin Route PRN Reason Start Time Stop Time Status Last Admin Dose Admin Acetaminophen (Tylenol Tab) 650 mg Q6H PRN PO MILD PAIN (PS 1-4) 07/10/21 18:20 07/11/21 08:24 Albuterol Sulfate (Proventil, Ventolin Hfa) 2 puff Q4HP PRN INH wheezing 07/10/21 21:25 Albuterol/ Ipratropium (Duoneb (Ipr 0.5mg/Alb 2.5mg)) 3 ml Q6HP PRN NEB SOB/WHEEZING 07/10/21 21:25 Carvedilol (COReg) 6.25 mg BID PO 07/11/21 09:00 07/11/21 09:00 Cefazolin Sodium/ Dextrose 2 gm/IV Miscellaneous Supplies 50 ml @ 75 mls/hr Q8H IV 07/10/21 20:00 07/11/21 14:00 07/11/21 04:36 Fentanyl Citrate (Sublimaze) 25 mcg Q5MP PRN IV PAIN LEVEL 8-10 07/10/21 18:55 07/10/21 19:55 DC Furosemide (Lasix) 20 mg DAILY PO 07/11/21 09:00 07/11/21 08:35 DC 07/11/21 08:25 Heparin Sodium (Porcine) (Heparin) 5,000 units Q8H SQ 07/10/21 22:00 07/11/21 05:33 Home Med (Home Med List Complete!) ASDIRECTED XX 07/10/21 21:55 07/10/21 21:56 DC Hydromorphone HCl (Dilaudid) 0.5 mg Q5MP PRN IV PAIN LEVEL 5-7 07/10/21 18:55 07/10/21 19:55 DC Lactated Ringer's 1,000 ml @ 40 mls/hr Q24H IV 07/10/21 18:20 07/11/21 05:07 DC 07/10/21 20:08 Lactated Ringer's 1,000 ml @ 100 mls/hr Q10H IV 07/10/21 18:55 07/10/21 19:55 DC Meperidine HCl (Demerol) 12.5 mg Q5MP PRN IV SHIVERING 07/10/21 18:55 07/10/21 19:55 DC Morphine Sulfate (Morphine Sulfate Inj) 2 mg Q3H PRN IV PAIN LEVEL 8-10 07/10/21 18:20 Ondansetron HCl (ZOFRAN INJection) 4 mg Q4H PRN IV NAUSEA OR VOMITING 07/10/21 18:20 07/10/21 21:51 Ondansetron HCl (ZOFRAN INJection) 4 mg Q4HP PRN IV NAUSEA OR VOMITING 07/10/21 18:55 07/10/21 19:55 DC Promethazine HCl (PHENERGAN INJection) 12.5 mg Q5MP PRN IV NAUSEA OR VOMITING 07/10/21 18:55 07/10/21 19:11 DC 07/10/21 19:11 Sacubitril/ Valsartan (Entresto 24-26 Mg) 1 tab BID PO 07/11/21 09:00 07/11/21 09:00 Torsemide (Demadex) 20 mg DAILY PO 07/12/21 09:00 Tramadol HCl (Ultram) 50 mg Q6HP PRN PO MODERATE PAIN (PS 5-7) 07/10/21 18:20 Allergies Coded Allergies: prochlorperazine (Verified Allergy, Unknown, PALPATATIONS, 07/10/21) SEASONAL ALLERGIES (Verified Adverse Reaction, Intermediate, CONGESTION, 07/10/21) Objective Physical Examination Examination GENERAL APPEARANCE:Patient seen, laying in bed, awake, alert, and oriented. Comfortable, in no acute distress. SKIN: Warm and moist. BREAST: Right is soft, non-tender incisions intact. BEATRIZ drain: 20 cc/24 hr. right NAC: Viable, warm, symmetrical, mild post-op ecchymosis, no expanding hematoma. HEENT: Normocephalic, atraumatic. [place] palpebral conjunctiva, anicteric sclerae. Lips and mucosa appear moist. NECK: Supple, no thyromegaly. No obvious jugular venous distention. LUNGS: Clear to auscultation bilaterally. No wheezing appreciated. HEART: No chest wall abnormalities. Regular rate and rhythm with no murmurs a ppreciated. ABDOMEN: Abdomen is soft, non-tender, non-distended. EXTREMITIES: No edema identified. No calf tenderness. Vital Signs Vital Signs Date Time Temp Pulse Resp B/P (MAP) Pulse Ox O2 Delivery O2 Flow Rate FiO2 07/11/21 10:00 98.6 82 18 105/57 (73) 96 Room Air 07/11/21 05:00 2.0 I&Os I&O- Last 24 Hours up to 6 AM 07/11/21 05:59 Intake Total 1370 ml Output Total 130 ml Balance 1240 ml Laboratory Data Labs 24H Laboratory Tests 2 07/10/21 22:04: Nucleated Red Blood Cells % (auto) 0.0, Anion Gap 7L, Glomerular Filtration Rate 59.4L, Calcium Level 8.6, Magnesium Level 1.6L, GM-Ssf-O-Type Natriuretic Pepti de 07/11/21 05:53: Nucleated Red Blood Cells % (auto) 0.0, Anion Gap 8, Glomerular Filtration Rate > 60.0, Calcium Level 8.6, Immature Granulocyte % (Auto) 0.4, Neutrophils (%) (Auto) 86.5H, Lymphocytes (%) (Auto) 8.2L, Monocytes (%) (Auto) 4.8, Eosinophils (%) (Auto) 0.0, Basophils (%) (Auto) 0.1, Neutrophils # (Auto) 13.9H, Lymphocytes # (Auto) 1.3L, Monocytes # (Auto) 0.8, Eosinophils # (Auto) 0.0, Basophils # (Auto) 0.0 CBC/BMP Laboratory Tests 07/10/21 22:04 07/11/21 05:53 Impression Right breast cancer Patient status post right breast lumpectomies, sentinel lymph node biopsy and immediate reconstruction with oncoplastic mammoplasty. Postop day 1. Stable for discharge from surgical standpoint. Follow-up appointments for breast surgery and plastic surgery after discharge. Dressings changed today. Instructions given to the patient. Plan / VTE VTE Prophylaxis Ordered?: Yes MARIEL RIDDLE DO Jul 11, 2021 11:28
[2021-07-11] MEDS ORDERED: TRAM50TA2 PO (12:02)
[2021-07-12] MEDS ORDERED: TORSEMIDE 20 MG TAB PO SCH (09:00)
--- NOTE | 2021-07-15 22:19 | ROOPDOC ---
[facility] Report Of Operation Report of Operation DATE OF PROCEDURE: 07/10/21 PREPROCEDURE DIAGNOSES: Right breast cancer POSTPROCEDURE DIAGNOSES: Right breast cancer PROCEDURE PERFORMED: Right breast lumpectomy x 2, with right intraop wire placement x2, right sentinel lymph node biopsy with dual tracer by injecting methylene blue, right breast oncoplastic closure SURGEON: Dr Annamarie Cash SECURITY INFRASTRUCTURE ENGINEER: Dr Yash Treadwell ANESTHESIA: general ESTIMATED BLOOD LOSS: Approximately 100 mL. COMPLICATIONS: none FINDINGS: clips identified in the specimens PROCEDURE NOTE: INDICATIONS: Ms. Mar is a 31-year-old woman who was found to have a suspicious palpable mass at parasternal aspect of her right breast. This was biopsied and pathology came back at [facility], Grade 3, ER 0%, ME 1-10% Her2 neg. She had b/l diagnostic mammogram done as well which showed additional lesion in the L UOQ. This was biopsied also and came back as intramammary lymph node, negative for malignancy. Patient underwent MRI of the breast preoperatively. This showed a left breast lesion in addition to the known malignancy. Second look US was done and lesion was identified on sono and biopsied. 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 Due to size of the mass, clinically triple negative status and proximity to the muscle, patient was started on neoadjuvant chemotherapy. This had to be stopped prior to completion as patient developed myopathy and her ejection fraction decreased. Rpt MRI was done and showed resolution of right breast mass and of left breast lesion. Surgical options were discussed with patient. She opted for breast conservation with right breast large two lumpectomies (patient wished to have the benign clip area excised as well) with sentinel lymph node biopsy with dual tracer and oncoplastic closure of the right breast. Due to her cardiac issues, decision was made to delay her left breast papilloma excision. She was medically cleared for surgery by her primary care doctor. Risks and possible complications of surgical procedure including bleeding, infection and injury to surrounding structures were explained to the patient and she wished to proceed. Consent was signed. My initials were placed on the operative site. Subcutaneous injection of 5000 units of heparin was done in Preop. The injection of radioactive tracer was done in radiology department preoperatively. Lymphoscintigraphy imaging was reviewed in preop. Dr. Treadwell marked patient preoperatively for Alves Pattern Incision. DETAILS: Patient was taken to the operating room and placed on the operating room table. A sign in was called stating patients name, date of and the procedure to be done. Preoperative antibiotics were infused. Smooth induction of general anesthesia was done. Patients hands were extended on arm rests. Care was taken not to over extend the arms. Pillow was placed under the knees and a foam was placed under the heels. Sequential compression devices were placed and assured to function correctly. Procedure was started with right breast intraop wire localization. Appropriate time out was done and patients name, date of , and the procedure to be done were confirmed. Right breast was cleaned by me. Intraoperative ultrasound was used to confirm location of the Hydromark clips location in the right peristernal region at 3:00 and 10:00. Location of each clip was marked on the skin as well. 21 G [employer] Breast Lesion Localization Needle was used to place 25 cm wire through each clip, starting with the Right 3:00 clip, followed by 10:00 clip. The end of each the wire was passed a centimeter deep. The images were captured confirming adequate placement of the localizing wire. Digital Publishing Specialist assisted with the wire placement. Next, patients right breast and axilla were prepped and draped in the usual fashion. Care was taken not to displace the wires. Appropriate time out was done again prior second part of the procedure. Patients name, date of , and the procedure to be done were confirmed. 5 cc of methylene blue was injected into right upper outer quadrant and the right breast was massaged appropriately to allow dye to go to the axilla. Next, Neoprobe was used to locate area of maximum intensity of the signal. Local anesthetic using Exparel was injected. I made an incision was made with scalpel number 15 at the inferior aspect of axillary hair line in the right axilla where the maximum signal was identified. The sharp and blunt dissection was continued through the subcutaneous adipose tissue. Clavipectoral fascia was opened. Neoprobe was used to guide the dissection. First sentinel lymph node was identified in deep axilla and excised. The ex-vivo 10 second count was 5227. Second sentinel lymph node was identified and excised as well. The ex-vivo 10 second count was 2166. Upon dissection a blue node was encountered and excised. This was named third sentinel lymph node. This node did not have any signal. Fourth sentinel lymph node was identified and excised as well. The ex-vivo 10 second count was [address]. The specimens were labeled with patients name and sent to pathology. No additional lymph nodes with high radioactive signal, blue or palpable were identified. The 10 second count of the background was 65. Adequate hemostasis was assured. Dr Treadwell assisted with hemostasis. Additional local anesthetic was injected into surrounding tissues. Wound was irrigated. Clavipectoral fascia was closed with 3-0 Vicryl interrupted suture. Dermal layer was closed at the end of the case with 3-0 Monocryl and skin was closed with 4-0 Monocryl. Surgical glue was applied to the incision at the end of the procedure. Next, our attention was turned toward the right breast. Dr Treadwell made an incision using Alves pattern and provided access to the breast parenchyma. Subcutaneous flaps were raised along entire medial aspect of the right breast. Location of medial clip was previously marked on the skin and now was confirmed with intraop ultrasound. Double black stitch was placed at the site of clip. Tissue was at the medial aspect of inferior breast pedicle. The dissection was carried all the way to the fascia and the muscle. Superior dissection edge was carried adequately away from marked clip site. Inferior dissection edge was at the inframammary fold. The medial margin was chosen pass the sternum and at the medial border of left breast pectoralis muscle border. The posterior margin was chosen to be at the right pectoralis muscle. Fascia was taken with the specimen. Upon lifting the lumpectomy specimen of the pectoralis muscle, a denser nodule was encountered close to the posterior border of the specimen. At this point 2x2 cm pectoralis muscle was taken at the area immediately posterior to the nodule. This was attached to the specimen with white stitch to allow true representation of posterior margin. The right large medial lumpectomy specimen was marked with short single stitch superior and long single stitch lateral. It was then carefully removed from the breast keeping its proper orientation and moved to the back table where margins were marked with the surgical inking kit following the standard colors recommendations. Specimen was then placed on the grid and placed in [facility]. The image revealed a Hydromark clips with the wire. The specimen was labeled with patients name and right medial lumpectomy and sent to pathology. The specimen measured 15x10 cm. Margins of the specimen were carefully evaluated and felt to be adequate. No additional margin re-excision was needed. At this point 4 marking clips were placed at the edges of excised wedge of pectoralis. Additional local anesthetic was injected into surrounding tissues. Next, Dr Treadwell made an incision on the superior-lateral aspect of Alves pattern inferior breast flap allowing access to the latter breast. Subcutaneous flap was raises along the superior-lateral aspect of breast. Location of the lateral clip was previously marked on the skin and now was confirmed with intraop ultrasound. Double black stitch was placed at the site of clip. The area close to clip and wire was carefully excised. The right lateral lumpectomy specimen was marked with short single stitch superior and long single stitch lateral. It was then carefully removed from the breast keeping its proper orientation and moved to the back table where margins were marked with the surgical inking kit following the standard colors recommendations. Specimen was then placed on the grid and placed in [facility]. The image revealed a Hydromark clips with the wire. The specimen was labeled with patients name and right lateral lumpectomy and sent to pathology. The specimen measured 7x5 cm. Margins of the specimen were carefully evaluated and felt to be adequate. No additional margin re-excision was needed. Next, right breast tissue was thoroughly irrigated. Adequate hemostasis was assured. Additional local anesthetic with Exparel was injected into surrounding tissues. At this point, Dr Treadwell proceeded with oncoplastic closure of the acquired right breast tissue defects. Additional right breast skin was sent to pathology as a separate specimen. Please see Dr Bhagat note for details. 10 mm flat BEATRIZ drain was placed and secured with the suture. Wound was closed in usual fashion. Xeroform gauze was placed over the incision. Postop dressings and surgical bra were placed. Sponge and instrument counts were done and were correct. Patient emerged from the anesthesia without any problems. Patient tolerated procedure well and was taken to recovery unit in stable condition. MAGDI CASH DO Jul 10, 2021 21:20
== END 2021-07-11 13:37 | disposition home or self-care (01) ==
LOC: M SDC 09:29 → M MS5PR 09:30 → M MSPAV 19:55
PROVIDERS: ADMIT Surgery; ATTEND Surgery
DX: C50.911 Malignant neoplasm of unspecified site of right female breast (principal); N62 Hypertrophy of breast; Z98.890 Other specified postprocedural states; J45.20 Mild intermittent asthma, uncomplicated; I42.7 Cardiomyopathy due to drug and external agent; T45.1X5A Adverse effect of antineoplastic and immunosuppressive drugs, initial encounter; I50.20 Unspecified systolic (congestive) heart failure; E66.3 Overweight; Z68.29 Body mass index [BMI] 29.0-29.9, adult; Z79.899 Other long term (current) drug therapy; Z77.22 Contact with and (suspected) exposure to environmental tobacco smoke (acute) (chronic)
CPT/HCPCS: 19125; 19126; 19318; 36415; 38525; 76942; 78195; 80048; 81025; 83735; 83880; 85025; 85027; 86850; 86900; 86901; 88305; 88307; 88342; 96372; 96374; 96375; 96376; A9541; C9290; J0131; J0690; J1100; J1170; J1580; J1644; J2250; J2370; J2405; J2765; J3010; Q9968

== ENCOUNTER → 2021-08-02 | Outpatient (CLI) | payer MEDICAID ==
[~2021-08-02] MED LIST changes: +BANO25TA PO; +CARV6.25 PO; +CETI10TA4 PO; -LR 1,000 ML IV ONE; +TRAM50TA2 PO
== END ==
LOC: M LABSMTC 10:42
PROVIDERS: ATTEND Anesthesiology
DX: Z01.818 Encounter for other preprocedural examination (principal); Z11.52 Encounter for screening for COVID-19

== ENCOUNTER → 2021-08-02 | Outpatient (CLI) | payer MEDICAID ==
--- NOTE | 2021-08-02 16:08 | RADONC.CN ---
Radiation Oncology Hx/Consult Radiation Oncology Consult Date of Service: Aug 02, 2021 Pt Identifier Alaina Mar is a 31 year old female with a history of self-detected right breast cancer [id number](sn)M0 [facility] ER/AL/HER2- grade 3. She is s/p NAC complicated by heart failure, and subsequent lumpectomy and SLNB with oncoplasty on 07/11/21 margins were negative. She is seen for consideration of adjuvant RT. Diagnosis/Treatment History Oncologic History November 2020 [place] a lump in the medial right breast 11/28/20 US showing 2 cm spiculated lesion @ 2:00 12/20/20 Biopsy showing [facility] ER/HER2- AL low positive grade 3 12/28/20 [facility] mammogram with right outer breast abnormality, no US correlate 01/16/21 PET-CT 2.3 cm right chest wall lesion 01/17/21 Right breast biopsy of second site negative 02/02/21 MRI without regional adenopathy, left breast lesion noted 02/09/21 Left breast biopsy with intraductal papilloma 02/22/21 Started AC+T stopped on 04/05/21 due to CHF 05/18/21 Echo with 30% EF 07/10/21 Lumpectomy SLNB and oncoplasty (Shreya) showing pT1bN0(sn)M0 ER/HER2- AL low positive grade 3 margins negative Breast history: OCP x 9 years Menses @ 15 Premenopausal No HRT No IVF Interval History Alaina reports she feels well. No longer having palpitations, but does note some fatigue. No pain in the right breast. Revision surgery and left mastopexy on 08/07/21. No swelling in the RUE, no impaired ROM. Past Medical History: Asthma Adriamycin induced HF Past Surgical History: C section Family History: Paternal grandmother breast cancer Social History: Never smoker Never drinker Marijuana use Allergies / Meds Allergies: Coded Allergies: SEASONAL ALLERGIES (Verified Adverse Reaction, Mild, CONGESTION, 08/02/21) prochlorperazine (Verified Adverse Reaction, Mild, PALPATATIONS, 08/02/21) Home Meds Reported Medications Furosemide (Furosemide) 20 Mg Tablet, 20 MG PO DAILY, TAB 07/10/21 Albuterol Sulfate (Proair Hfa) 8.5 Gm Hfa.aer.ad, 2 PUFF INH QID PRN for WH EEZING 07/10/21 Carvedilol (Carvedilol) 6.25 Mg Tablet, 6.25 MG PO BID, TAB 07/10/21 Cetirizine HCl (Cetirizine HCl) 10 Mg Tablet, 10 MG PO DAILY, TAB 07/10/21 Diphenhydramine HCl (Banophen) 25 Mg Tablet, 25 MG PO QHS, TAB 07/10/21 Sacubitril/Valsartan (Entresto 24 mg-26 mg Tablet) 1 Each Tablet, 1 TAB PO BID, TAB 06/28/21 Discontinued Reported Medications Empagliflozin (Jardiance) 10 Mg Tablet, 10 MG PO DAILY, TAB 06/28/21 Discontinued Scripts Tramadol HCl (Tramadol HCl) 50 Mg Tablet, 50 MG PO Q6HP PRN for MODERATE PAIN (PS 5-7) MDD 4 for 4 Days, #20 TAB Prov:JANESSA,MARIEL E. DO 07/11/21 Review of Systems Constitutional: Reports: Fatigue; Denies: Weakness Eyes: Denies: Pain HEENT: Denies: Head Aches Pulmonary: Denies: Dyspnea Cardiovascular: Denies: Chest Pain, Palpitations Breast: Reports: Breast Skin Changes; Denies: New Breast Lumps / Masses Neurological: Denies: Weakness, Numbness Psych: Reports: Mood Normal Vital Signs Wt 163 lbs T 98.1 P 112 RR 16 BP 102/66 O2 97% Pain 0 Fatigue 2 General Exam: Alert, Cooperative, No Acute Distress Eye Exam: PERRLA, EOMI ENT EXAM: Atraumatic Neck Exam: Supple; Negative: Lymphadenopathy Chest Exam: Clear to auscultation Heart Exam: Rate Normal Breast Exam: Negative: Symmetric Bilaterally (Right breast inferior aspect of keyhole incision with eschar, no drainage. No breast lesions palpable BL. No axillary lesions palpable BL) Abdomen Exam: Soft Extremity Exam: Negative: Edema Skin Exam: Nl turgor and temperature Neuro Exam: Normal Gait, Normal Speech, Cranial Nerves 3-12 NL Psych Exam: Mental status NL Diagnostic and Laboratory Diagnostic Review Radiologic images, relevant labs and pathology reports were personally reviewed and discussed with Ms. Mar. Assessment and Plan Impression Ms. Mar is a 31 year old female with a history of self-detected right breast cancer [id number](sn)M0 [facility] ER/AL/HER2- grade 3. She is s/p NAC complicated by heart failure, and subsequent lumpectomy and SLNB with oncoplasty on 07/11/21 margins were negative. She is seen for consideration of adjuvant RT. Stage Right upper inner breast cancer [id number]-->[id number](sn)M0 [facility] ER/AL/HER2- grade 3 stage IB Performance Status ECOG 1 Plan We had an extensive discussion with Ms. Mar regarding the diagnosis at hand and available therapeutic options. She has pending left mastopexy and right revision on 08/07/21. She had residual disease on lumpectomy, after failing to complete NAC due to CHF. I discussed that she should have adjuvant RT to the right whole breast + tumor bed boost given her age and the aggressive phenotype of her cancer. She would also be eligible for additional chemotherapy after RT, possibly xeloda per the CREATEX trial. For treatment I recommend 40 Gy in 15 fractions to the right whole breast and an additional 10 Gy in 5 fraction tumor bed boost. This can occur in August to allow healing from her upcoming surgery. We discussed the logistics of receiving radiation therapy in detail including the need for a 1-time planning session, which should be done ~ 08/27/21 at the earliest. We reviewed the side effects of RT including fatigue, skin reaction, fibrosis, altered cosmesis and second malignancy risk. After discussing the risks, benefits and alternatives to radiation therapy, Ms. Mar was amenable to pursuing radiotherapy. All questions were answered to the patient's satisfaction. We instructed the patient that if there were any questions,concerns or changes in clinical status in the interim to contact us. Recommendations Right whole breast RT 40 Gy in 15 fraction + 10 Gy in 5 fraction tumor bed boost Simulation ~ 08/27/21 pending post-operative course Consider additional chemotherapy after RT Billing Statement Total time of [45] minutes was spent preparing for the visit [2], obtaining HPI [8], examining the patient [5], reviewing diagnostic tests [5], discussing management options [13], coordinating care [4], and writing this note [8]. DARIEN MACHUCA MD Aug 02, 2021 16:07
== END ==
LOC: M ONCR 14:03
PROVIDERS: ATTEND General Practice
DX: C50.911 Malignant neoplasm of unspecified site of right female breast (principal); J30.2 Other seasonal allergic rhinitis; Z79.899 Other long term (current) drug therapy

== ENCOUNTER 2021-08-07 09:43 | Observation (INO) | payer MEDICAID ==
[~2021-08-07] VITALS: Ht 157.5 cm; Wt 73.9 kg
[~2021-08-07 09:43] MED LIST changes: +HEPARIN SOD (PORCINE) 5000UNITS/ML 1ML VIAL/SYRINGE SQ ONE; +LR 1,000 ML IV ONE; -PROC10TA4 PO; +PROC10TA5 PO; +ceFAZolin SOD 2 GM in IV 1 EA IV ONE
[2021-08-07] MEDS ORDERED: propofoL 200 MG/20 ML VIAL As Ordered ONE (10:54)
[2021-08-07] MEDS ORDERED: ONDANSETRON 4MG/2ML VIAL As Ordered ONE ×2 (10:54→17:25)
[2021-08-07] MEDS ORDERED: ROCURONIUM BROMIDE 50 MG/5 ML VIAL As Ordered ONE (10:54)
[2021-08-07] MEDS ORDERED: LIDOCAINE 2% 100MG/5ML SDV (FOR ANES.) As Ordered ONE (10:54)
[2021-08-07] MEDS ORDERED: dexameTHASONE 4 MG/ML 1ML VIAL (J1100 PER 1MG) As Ordered ONE (10:54)
[2021-08-07] MEDS ORDERED: METOCLOPRAMIDE INJ 10MG/2ML VIAL (J2765 PER 1) As Ordered ONE (10:54)
[2021-08-07] MEDS ORDERED: KETOROLAC 60MG 2ML VIAL As Ordered ONE (10:54)
[2021-08-07] MEDS ORDERED: ACETAMINOPHEN 1000MG 100ML IV BTL (OFIRMEV) (J0131 PER 10MG) As Ordered ONE (10:55)
[2021-08-07] MEDS ORDERED: fentaNYL 100 MCG/2 ML INJECTION As Ordered ONE (10:55)
[2021-08-07] MEDS ORDERED: MIDAZOLAM INJ 2MG/2ML VIAL (J2250 PER 1MG) As Ordered ONE (10:55)
[2021-08-07] MEDS ORDERED: SCOPOLAMINE 1MG TRANSDERMAL PATCH TOP ONE (11:00)
[2021-08-07] MEDS ORDERED: LIDOCAINE 1% SDV 30ML VIAL As Ordered ONE (12:32)
[2021-08-07] MEDS ORDERED: BUPIVACAINE HCL 0.25% 30ML VIAL As Ordered ONE (12:32)
[2021-08-07] MEDS ORDERED: GENTAMICIN SULF 80MG/2ML VIAL As Ordered ONE (12:32)
[2021-08-07] MEDS ORDERED: BUPIVACAINE LIPOSOME/PF 1.3% 20ML VIAL (13.3MG/ML)(EXPAREL)(C9290 PER1MG) As Ordered ONE (12:33)
[2021-08-07] MEDS ORDERED: HYDROmorphone HCL 2MG/ML 1ML VIAL As Ordered ONE (13:59)
[2021-08-07] MEDS ORDERED: MORPHINE 2 MG/ML 1ML VIAL (J2270) IV PRN (16:55)
[2021-08-07] MEDS ORDERED: LR 1,000 ML IV SCH ×2 (16:55→18:05)
[2021-08-07] MEDS ORDERED: traMADol 50 MG TAB PO PRN (16:55)
[2021-08-07] MEDS ORDERED: ACETAMINOPHEN TAB 650MG DOSE (2X325MG) PO PRN (16:55)
[2021-08-07] MEDS ORDERED: ALBUTEROL 90 MCG/ACT 8GM HFA INHALER INH PRN (17:30)
[2021-08-07] MEDS: ONDANSETRON 4MG/2ML VIAL IV PRN (17:56)
[2021-08-07] MEDS ORDERED: oxyCODONE 5MG TAB PO PRN (18:05)
[2021-08-07] MEDS ORDERED: HYDROMORPHONE HCL 0.5 MG/ 0.5 ML SYRINGE (J1170 PER 1) IV PRN (18:05)
[2021-08-07] MEDS ORDERED: fentaNYL 100 MCG/2 ML INJECTION IV PRN (18:05)
[2021-08-07] MEDS ORDERED: ONDANSETRON 4MG/2ML VIAL IV PRN (18:05)
[2021-08-07] MEDS ORDERED: PROMETHAZINE INJ 25 MG/ML VIAL (J2550) IV PRN (18:40)
[2021-08-07 20:00] VITALS: BP 123/84
[2021-08-07] MEDS ORDERED: PANTOPRAZOLE 40MG VIAL (C9113 PER 1) IV SCH (20:00)
[2021-08-07 20:30] VITALS: BP 113/71
[2021-08-07] MEDS ORDERED: PROMETHAZINE 25 MG TAB PO PRN (20:55)
[2021-08-07 21:00] VITALS: BP 110/69
[2021-08-07] MEDS: HEPARIN SOD (PORCINE) 5000UNITS/ML 1ML VIAL/SYRINGE SQ SCH (21:23)
[2021-08-07] MEDS: CARVedilol 6.25 MG TAB PO SCH (21:23)
[2021-08-07] MEDS: ONDANSETRON 4MG/2ML VIAL IV ONE ×2 (21:24→21:51)
[2021-08-07] MEDS: ceFAZolin SOD 2 GM in IV 1 EA IV SCH (21:51)
[2021-08-07 22:00] VITALS: BP 122/76
[2021-08-07 23:00] VITALS: BP 98/65
[2021-08-08] VITALS: BP 100/66
[2021-08-08 01:00] VITALS: BP 101/69
[2021-08-08] MEDS: ONDANSETRON 4MG/2ML VIAL IV PRN (01:49)
[2021-08-08 05:00] VITALS: BP 108/73
[2021-08-08] MEDS: ceFAZolin SOD 2 GM in IV 1 EA IV SCH (05:05)
[2021-08-08] MEDS: HEPARIN SOD (PORCINE) 5000UNITS/ML 1ML VIAL/SYRINGE SQ SCH ×2 (05:05→14:00)
[2021-08-08 08:43] VITALS: BP 108/73
[2021-08-08] MEDS: CARVedilol 6.25 MG TAB PO SCH (08:43)
[2021-08-08 09:00] VITALS: BP 113/73
[2021-08-08] MEDS ORDERED: CETIRIZINE (ZyrTEC) 10 MG TAB PO SCH (09:00)
[2021-08-08] MEDS ORDERED: ENTRESTO 24-26MG TABLET (SACUBITRIL/VALSARTAN) PO SCH (09:00)
[2021-08-08 09:23] LABS: BASO % 0.2 % (0.0-1.0); HEMATOCRIT 34.1 % (36.0-47.0); HEMOGLOBIN 11.2 g/dl (12.0-15.5); LYMPH # 1.9 10^3/uL (1.5-5.0); LYMPH % 12.8 % (24.0-44.0); MEAN CORPUSCULAR HEMOGLOBIN 27.8 pg (27.0-33.0); MEAN CORPUSCULAR HGB CONC 32.8 g/dl (32.0-36.5); MEAN CORPUSCULAR VOLUME 84.6 fl (80.0-96.0); MONO # 0.8 10^3/uL (0.0-0.8); MONO % 5.8 % (2.0-8.0); NEUTROPHILS # 11.7 10^3/uL (1.5-8.5); NEUTROPHILS % 80.8 % (36.0-66.0); PLATELET COUNT, AUTOMATED 285 10^3/uL (150-450); RED BLOOD COUNT 4.03 10^6/uL (4.00-5.40); WHITE BLOOD COUNT 14.5 10^3/uL (4.0-10.0)
[2021-08-08 10:10] LABS: BLOOD UREA NITROGEN 7 MG/DL (7-18); CALCIUM LEVEL 8.9 MG/DL (8.5-10.1); CARBON DIOXIDE LEVEL 25 MEQ/L (21-32); CHLORIDE LEVEL 108 MEQ/L (98-107); CREATININE FOR GFR 0.72 MG/DL (0.55-1.30); GLOMERULAR FILTRATION RATE > 60.0 (>60); GLUCOSE, FASTING 101 MG/DL (70-100); POTASSIUM SERUM 3.8 MEQ/L (3.5-5.1); SODIUM LEVEL 140 MEQ/L (136-145)
[2021-08-08] MEDS ORDERED: ULTR50TA8 PO (14:46)
[2021-09-03] MEDS ORDERED: CARV12.5 PO (15:08)
[2021-10-09] MEDS ORDERED: PENT400T47 PO (16:32)
[2021-10-09] MEDS ORDERED: VITA100020 PO (16:32)
[2021-11-07] MEDS ORDERED: SPIR-10 PO (13:04)
[2021-11-07] MEDS ORDERED: TAMO20TA8 PO (13:33)
== END 2021-08-08 16:00 | disposition home or self-care (01) ==
LOC: M SDC 09:43 → M MSPAV 09:44 → UNDOADMIN 09:44 → M MSPAV 16:51 → UNDODISIN 08-08 16:00
PROVIDERS: ADMIT Surgery; ATTEND Surgery
DX: D24.2 Benign neoplasm of left breast (principal); N65.1 Disproportion of reconstructed breast; N64.89 Other specified disorders of breast; N61.1 Abscess of the breast and nipple; L90.5 Scar conditions and fibrosis of skin; N64.1 Fat necrosis of breast; J45.909 Unspecified asthma, uncomplicated; I42.8 Other cardiomyopathies; Z92.21 Personal history of antineoplastic chemotherapy; R06.83 Snoring; I50.20 Unspecified systolic (congestive) heart failure; Z88.8 Allergy status to other drugs, medicaments and biological substances; Z79.899 Other long term (current) drug therapy
CPT/HCPCS: 19125; 19318; 19380; 36415; 76942; 80048; 81025; 85025; 86850; 86900; 86901; 88305; 88307; 93005; C9113; C9290; J0131; J0690; J1100; J1170; J1580; J1644; J2250; J2405; J2765; J3010

== ENCOUNTER 2021-09-20 14:28 | Outpatient (RCR) | payer MEDICAID ==
[~2021-09-20 14:28] MED LIST changes: +CARV12.5; -HEPARIN SOD (PORCINE) 5000UNITS/ML 1ML VIAL/SYRINGE SQ ONE; -LR 1,000 ML IV ONE; +PROC10TA4 PO; -PROC10TA5 PO; +ULTR50TA8 PO; -ceFAZolin SOD 2 GM in IV 1 EA IV ONE
== END 2021-09-21 ==
LOC: M ONCR 14:28
PROVIDERS: ATTEND General Practice
DX: C50.211 Malignant neoplasm of upper-inner quadrant of right female breast (principal); J98.9 Respiratory disorder, unspecified

== ENCOUNTER 2021-10-18 15:35 | Outpatient (RCR) | payer MEDICAID ==
[~2021-10-18 15:35] MED LIST changes: +PENT400T47 PO; -PROC10TA4 PO; +PROC10TA5 PO; +VITA100020 PO
== END 2021-10-22 ==
LOC: M ONCR 15:35
PROVIDERS: ATTEND General Practice
DX: C50.211 Malignant neoplasm of upper-inner quadrant of right female breast (principal)

== ENCOUNTER → 2022-01-17 | Outpatient (CLI) | payer MEDICAID ==
[~2022-01-17] MED LIST changes: -CARV12.5; +CARV12.5 PO; +SPIR-10 PO; +TAMO20TA8 PO
== END ==
LOC: M ONCR 15:14
PROVIDERS: ATTEND General Practice
DX: C50.211 Malignant neoplasm of upper-inner quadrant of right female breast (principal); Z92.3 Personal history of irradiation; Z92.21 Personal history of antineoplastic chemotherapy; Z88.1 Allergy status to other antibiotic agents; Z79.899 Other long term (current) drug therapy

== ENCOUNTER → 2022-03-06 | Outpatient (CLI) | payer MEDICAID ==
[~2022-03-06] MED LIST changes: +CARV25TA PO
== END ==
LOC: M WHC 09:58
PROVIDERS: ATTEND Surgery
DX: C50.919 Malignant neoplasm of unspecified site of unspecified female breast (principal)
CPT/HCPCS: 77066; G0279

== ENCOUNTER → 2022-04-25 | Outpatient (CLI) | payer MEDICAID ==
[~2022-04-25] MED LIST changes: +VITA-16 PO
== END ==
LOC: M ONCR 12:30
PROVIDERS: ATTEND General Practice
DX: Z08 Encounter for follow-up examination after completed treatment for malignant neoplasm (principal); Z85.3 Personal history of malignant neoplasm of breast; Z92.3 Personal history of irradiation; J30.2 Other seasonal allergic rhinitis; Z79.51 Long term (current) use of inhaled steroids; Z79.810 Long term (current) use of selective estrogen receptor modulators (SERMs); Z79.891 Long term (current) use of opiate analgesic; Z79.899 Other long term (current) drug therapy; Z88.8 Allergy status to other drugs, medicaments and biological substances; Z95.828 Presence of other vascular implants and grafts

== ENCOUNTER → 2022-07-30 | Outpatient (POV) | payer MEDICAID | LOC: M TMIRPOV 09:13 | PROVIDERS: ATTEND Radiology Diagnostic Radiology | DX: Z45.2 Encounter for adjustment and management of vascular access device (principal); J30.89 Other allergic rhinitis; Z88.8 Allergy status to other drugs, medicaments and biological substances ==

== ENCOUNTER → 2022-08-14 | Outpatient (CLI) | payer MEDICAID | LOC: M LABSMTC 11:43 | PROVIDERS: ATTEND Anesthesiology | DX: Z01.812 Encounter for preprocedural laboratory examination (principal); Z20.822 Contact with and (suspected) exposure to COVID-19 ==

== ENCOUNTER → 2022-08-19 | Outpatient (CLI) | payer MEDICAID ==
[~2022-08-19] MED LIST changes: +LIDOCAINE 1% MDV 20ML VIAL As Ordered ONE; +MIDAZOLAM INJ 2MG/2ML VIAL (J2250 PER 1MG) As Ordered ONE; +NS 1,000 ML IV SCH; +ceFAZolin 2 GM/D5W 50 ML IV BAG (J0690 PER 500MG) As Ordered ONE; +ceFAZolin SOD 2 GM in IV 1 EA IV ONE; +diphenhydrAMINE 50MG/ML VIAL As Ordered ONE; +fentaNYL 100 MCG/2 ML INJECTION As Ordered ONE
[2022-08-19 15:45] VITALS: BP 117/58
== END ==
LOC: M IRPRO 10:40
PROVIDERS: ATTEND Radiology Diagnostic Radiology
DX: Z45.2 Encounter for adjustment and management of vascular access device (principal); C50.911 Malignant neoplasm of unspecified site of right female breast
CPT/HCPCS: 36590; J0690; J1644

== ENCOUNTER → 2022-10-24 | Outpatient (CLI) | payer MEDICAID ==
[~2022-10-24] MED LIST changes: +ALBU8.5H INH; -LIDOCAINE 1% MDV 20ML VIAL As Ordered ONE; -MIDAZOLAM INJ 2MG/2ML VIAL (J2250 PER 1MG) As Ordered ONE; -NS 1,000 ML IV SCH; -ceFAZolin 2 GM/D5W 50 ML IV BAG (J0690 PER 500MG) As Ordered ONE; -ceFAZolin SOD 2 GM in IV 1 EA IV ONE; -diphenhydrAMINE 50MG/ML VIAL As Ordered ONE; -fentaNYL 100 MCG/2 ML INJECTION As Ordered ONE
== END ==
LOC: M ONCR 13:50
PROVIDERS: ATTEND General Practice
DX: C50.211 Malignant neoplasm of upper-inner quadrant of right female breast (principal); Z86.79 Personal history of other diseases of the circulatory system; J30.2 Other seasonal allergic rhinitis; Z79.810 Long term (current) use of selective estrogen receptor modulators (SERMs); Z79.84 Long term (current) use of oral hypoglycemic drugs; Z79.899 Other long term (current) drug therapy; Z88.8 Allergy status to other drugs, medicaments and biological substances; Z92.21 Personal history of antineoplastic chemotherapy; Z92.3 Personal history of irradiation

== ENCOUNTER → 2023-02-25 | Outpatient (CLI) | payer MEDICAID ==
[~2023-02-25] MED LIST changes: +FLUT50SP17 NARES; -FLUTISP NARES; +LOSA25TA13
== END ==
LOC: M ONCR 11:14
PROVIDERS: ATTEND General Practice
DX: Z08 Encounter for follow-up examination after completed treatment for malignant neoplasm (principal); Z85.3 Personal history of malignant neoplasm of breast; J30.2 Other seasonal allergic rhinitis; Z71.2 Person consulting for explanation of examination or test findings; Z79.810 Long term (current) use of selective estrogen receptor modulators (SERMs); Z79.84 Long term (current) use of oral hypoglycemic drugs; Z79.899 Other long term (current) drug therapy; Z88.8 Allergy status to other drugs, medicaments and biological substances; Z92.21 Personal history of antineoplastic chemotherapy; Z92.3 Personal history of irradiation

== ENCOUNTER → 2023-02-27 | Outpatient (CLI) | payer MEDICAID | LOC: M WHC 09:27 | PROVIDERS: ATTEND Surgery | DX: C50.011 Malignant neoplasm of nipple and areola, right female breast (principal) ==

== ENCOUNTER → 2023-09-12 | Outpatient (CLI) | payer MEDICAID ==
[~2023-09-12] MED LIST changes: -FLUT50SP17 NARES; +FLUTISP NARES; +FURO20TA2; +PROHANCE 279.3MG/ML 15ML VIAL ONE
== END ==
LOC: M PLAIMG 10:27
PROVIDERS: ATTEND Nurse Practitioner Women's Health
DX: C50.919 Malignant neoplasm of unspecified site of unspecified female breast (principal)
CPT/HCPCS: 77049; A9576

== ENCOUNTER → 2023-09-17 | Outpatient (CLI) | payer MEDICAID ==
[~2023-09-17] MED LIST changes: -PROHANCE 279.3MG/ML 15ML VIAL ONE
== END ==
LOC: M ONCR 11:23
PROVIDERS: ATTEND General Practice
DX: Z08 Encounter for follow-up examination after completed treatment for malignant neoplasm (principal); Z85.3 Personal history of malignant neoplasm of breast; I50.89 Other heart failure; Z71.2 Person consulting for explanation of examination or test findings; Z79.84 Long term (current) use of oral hypoglycemic drugs; Z79.891 Long term (current) use of opiate analgesic; Z79.899 Other long term (current) drug therapy; Z88.8 Allergy status to other drugs, medicaments and biological substances; Z92.21 Personal history of antineoplastic chemotherapy; Z92.3 Personal history of irradiation

== ENCOUNTER → 2024-03-02 | Outpatient (CLI) | payer MEDICAID ==
[~2024-03-02] MED LIST changes: -BENZ150C2 PO; +BENZ150C5 PO
== END ==
LOC: M WHC 08:57
PROVIDERS: ATTEND Nurse Practitioner Women's Health
DX: Z85.3 Personal history of malignant neoplasm of breast (principal); R92.333 Mammographic heterogeneous density, bilateral breasts; Z92.21 Personal history of antineoplastic chemotherapy; Z92.3 Personal history of irradiation

== ENCOUNTER → 2024-03-03 | Outpatient (CLI) | payer MEDICAID | LOC: M ONCR 10:49 | PROVIDERS: ATTEND General Practice | DX: Z08 Encounter for follow-up examination after completed treatment for malignant neoplasm (principal); Z85.3 Personal history of malignant neoplasm of breast; Z92.21 Personal history of antineoplastic chemotherapy; Z92.3 Personal history of irradiation; Z88.8 Allergy status to other drugs, medicaments and biological substances; J30.2 Other seasonal allergic rhinitis; Z79.84 Long term (current) use of oral hypoglycemic drugs; Z79.899 Other long term (current) drug therapy; Z71.2 Person consulting for explanation of examination or test findings; Z79.810 Long term (current) use of selective estrogen receptor modulators (SERMs) ==

== ENCOUNTER → 2024-03-24 | Outpatient (REF) | payer MEDICAID ==
[2024-03-24 10:29] LABS: HEMATOCRIT 43.3 % (36.0-47.0); HEMOGLOBIN 14.4 g/dl (12.0-15.5); MEAN CORPUSCULAR HEMOGLOBIN 29.9 pg (27.0-33.0); MEAN CORPUSCULAR HGB CONC 33.3 g/dl (32.0-36.5); MEAN CORPUSCULAR VOLUME 89.8 fl (80.0-96.0); PLATELET COUNT, AUTOMATED 351 10^3/uL (150-450); RED BLOOD COUNT 4.82 10^6/uL (4.00-5.40); WHITE BLOOD COUNT 7.9 10^3/uL (4.0-10.0)
[2024-03-24 11:07] LABS: BLOOD UREA NITROGEN 11 MG/DL (9-23); CALCIUM LEVEL 9.1 MG/DL (8.5-10.1); CARBON DIOXIDE LEVEL 29 MMOL/L (20-31); CHLORIDE LEVEL 103 MMOL/L (98-107); CREATININE FOR GFR 0.67 MG/DL (0.55-1.30); GLOMERULAR FILTRATION RATE > 60.0 (>60); GLUCOSE, FASTING 106 MG/DL (60-100); SODIUM LEVEL 137 MMOL/L (136-145)
== END ==
LOC: M LAB REF 10:06
PROVIDERS: ATTEND Internal Medicine Cardiovascular Disease
DX: I42.7 Cardiomyopathy due to drug and external agent (principal)

== ENCOUNTER 2024-05-16 19:28 | Emergency (ER) | payer MEDICAID ==
[~2024-05-16] VITALS: Ht 157.5 cm; Wt 72.3 kg
[2024-05-16 19:29] VITALS: TEMP 97.3
[2024-05-16] MEDS: IPRATROPIUM 0.5MG/ALBUTEROL 2.5MG INH SOL UD 3ML (DUONEB) NEB PRN (20:38)
[2024-05-16] MEDS: methylPREDNISolone 125MG 2ML VIAL IV ONE (20:58)
[2024-05-16 20:59] LABS: BASO # 0.1 10^3/uL (0.0-0.2); BASO % 0.6 % (0.0-1.0); EOS # 1.3 10^3/uL (0.0-0.5); EOS % 9.5 % (0.0-3.0); HEMOGLOBIN 14.9 g/dl (12.0-15.5); LYMPH # 3.1 10^3/uL (1.5-5.0); LYMPH % 22.7 % (24.0-44.0); MEAN CORPUSCULAR HEMOGLOBIN 29.9 pg (27.0-33.0); MEAN CORPUSCULAR HGB CONC 33.9 g/dl (32.0-36.5); MEAN CORPUSCULAR VOLUME 88.2 fl (80.0-96.0); MONO # 0.7 10^3/uL (0.0-0.8); MONO % 5.4 % (2.0-8.0); NEUTROPHILS # 8.5 10^3/uL (1.5-8.5); NEUTROPHILS % 61.5 % (36.0-66.0); PLATELET COUNT, AUTOMATED 318 10^3/uL (150-450); RED BLOOD COUNT 4.99 10^6/uL (4.00-5.40); WHITE BLOOD COUNT 13.8 10^3/uL (4.0-10.0)
[2024-05-16 21:35] LABS: CK-MB VALUE MASS 1.6 NG/ML (<3.6)
[2024-05-16 21:37] LABS: ALBUMIN 3.6 G/DL (3.2-5.2); ALKALINE PHOSPHATASE 49 U/L (46-116); ALT/SGPT 21 U/L (7.0-40); AST/SGOT 14 U/L (<34); BILIRUBIN,DIRECT 0.3 MG/DL (<0.4); BILIRUBIN,TOTAL 1.2 MG/DL (0.3-1.2); BLOOD UREA NITROGEN 9 MG/DL (9-23); CALCIUM LEVEL 8.9 MG/DL (8.5-10.1); CARBON DIOXIDE LEVEL 26 MMOL/L (20-31); CHLORIDE LEVEL 110 MMOL/L (98-107); CREATININE FOR GFR 0.76 MG/DL (0.55-1.30); GLOMERULAR FILTRATION RATE > 60.0 (>60); GLUCOSE, FASTING 81 MG/DL (60-100); POTASSIUM SERUM 3.9 MMOL/L (3.5-5.1); SODIUM LEVEL 140 MMOL/L (136-145); TOTAL PROTEIN 6.9 G/DL (5.7-8.2)
[2024-05-16 21:47] LABS: CPK CREATINE PHOSPHOKINASE 112 U/L (34-145); MB/CK RELATIVE INDEX 1.42 (< OR =4)
[2024-05-16 21:53] LABS: HCG, SERUM QUALITATIVE NEGATIVE (NEGATIVE)
[2024-05-16 22:47] LABS: CK-MB VALUE MASS 1.5 NG/ML (<3.6)
[2024-05-16 22:49] LABS: CPK CREATINE PHOSPHOKINASE 117 U/L (34-145); MB/CK RELATIVE INDEX 1.28 (< OR =4)
[2024-05-17] VITALS: BP 105/63
[2024-05-17] MEDS ORDERED: PRED20TA PO (00:14)
[2024-05-17 00:15] VITALS: O2SAT 95
== END 2024-05-17 00:23 | disposition home or self-care (01) ==
LOC: M ED 19:28
DX: J45.901 Unspecified asthma with (acute) exacerbation (principal); I50.9 Heart failure, unspecified; J45.909 Unspecified asthma, uncomplicated; Z85.3 Personal history of malignant neoplasm of breast; I42.7 Cardiomyopathy due to drug and external agent; Z92.21 Personal history of antineoplastic chemotherapy; Z79.899 Other long term (current) drug therapy; Z88.8 Allergy status to other drugs, medicaments and biological substances
CPT/HCPCS: 71045; 80048; 80076; 82550; 82553; 83605; 83880; 84484; 84703; 85025; 87486; 87581; 87633; 87798; 93005; 93041; 94640; 94760; 96374; 99285; J2919

== ENCOUNTER 2024-05-28 21:47 | Emergency (ER) | payer MEDICAID ==
[~2024-05-28] VITALS: Ht 157.5 cm; Wt 71.2 kg
[~2024-05-28 21:47] MED LIST changes: +PRED20TA PO
[2024-05-28 22:14] LABS: BASO # 0.1 10^3/uL (0.0-0.2); BASO % 0.4 % (0.0-1.0); EOS # 0.9 10^3/uL (0.0-0.5); EOS % 5.8 % (0.0-3.0); HEMATOCRIT 46.4 % (36.0-47.0); HEMOGLOBIN 15.3 g/dl (12.0-15.5); LYMPH # 3.3 10^3/uL (1.5-5.0); LYMPH % 20.2 % (24.0-44.0); MEAN CORPUSCULAR HEMOGLOBIN 29.4 pg (27.0-33.0); MEAN CORPUSCULAR VOLUME 89.2 fl (80.0-96.0); MONO # 1.1 10^3/uL (0.0-0.8); MONO % 6.8 % (2.0-8.0); NEUTROPHILS # 10.8 10^3/uL (1.5-8.5); NEUTROPHILS % 66.6 % (36.0-66.0); PLATELET COUNT, AUTOMATED 343 10^3/uL (150-450); WHITE BLOOD COUNT 16.3 10^3/uL (4.0-10.0)
[2024-05-28] MEDS: IPRATROPIUM 0.5MG/ALBUTEROL 2.5MG INH SOL UD 3ML (DUONEB) NEB ONE (22:40)
[2024-05-28 22:48] LABS: ALBUMIN 3.8 G/DL (3.2-5.2); ALKALINE PHOSPHATASE 52 U/L (46-116); ALT/SGPT 25 U/L (7.0-40); AST/SGOT 18 U/L (<34); BILIRUBIN,DIRECT 0.3 MG/DL (<0.4); BILIRUBIN,TOTAL 1.3 MG/DL (0.3-1.2); BLOOD UREA NITROGEN 15 MG/DL (9-23); CALCIUM LEVEL 8.6 MG/DL (8.5-10.1); CARBON DIOXIDE LEVEL 24 MMOL/L (20-31); CHLORIDE LEVEL 107 MMOL/L (98-107); CK-MB VALUE MASS < 1.0 NG/ML (<3.6); CREATININE FOR GFR 0.77 MG/DL (0.55-1.30); GLOMERULAR FILTRATION RATE > 60.0 (>60); GLUCOSE, FASTING 102 MG/DL (60-100); POTASSIUM SERUM 4.1 MMOL/L (3.5-5.1); SODIUM LEVEL 138 MMOL/L (136-145); TOTAL PROTEIN 7.2 G/DL (5.7-8.2)
[2024-05-28 22:49] LABS: CPK CREATINE PHOSPHOKINASE 86 U/L (34-145); MB/CK RELATIVE INDEX 1.16 (< OR =4)
[2024-05-28 22:59] LABS: HCG, SERUM QUALITATIVE NEGATIVE (NEGATIVE)
[2024-05-28] MEDS: methylPREDNISolone 125MG 2ML VIAL IV ONE (23:04)
[2024-05-28] MEDS: ALBUTEROL SULFATE 2.5MG/0.5ML INH NEB SOLN INH SCH (23:12)
[2024-05-28 23:45] LABS: CK-MB VALUE MASS < 1.0 NG/ML (<3.6); CPK CREATINE PHOSPHOKINASE 102 U/L (34-145); MB/CK RELATIVE INDEX 0.98 (< OR =4)
[2024-05-29] MEDS ORDERED: ALBUTEROL 90 MCG/ACT 8GM HFA INHALER INH ONE ×2 (02:35)
[2024-05-29 02:45] VITALS: BP 99/62
[2024-05-29 02:49] VITALS: TEMP 97.1; O2SAT 100
[2024-05-29] MEDS: ALBUTEROL 90 MCG/ACT 8GM HFA INHALER INH ONE (03:00)
== END 2024-05-29 03:01 | disposition home or self-care (01) ==
LOC: M ED 21:47
DX: J45.901 Unspecified asthma with (acute) exacerbation (principal); Z88.8 Allergy status to other drugs, medicaments and biological substances; I50.9 Heart failure, unspecified; C50.919 Malignant neoplasm of unspecified site of unspecified female breast; I42.7 Cardiomyopathy due to drug and external agent; Z92.21 Personal history of antineoplastic chemotherapy; Z79.51 Long term (current) use of inhaled steroids; Z79.899 Other long term (current) drug therapy
CPT/HCPCS: 71045; 80048; 80076; 82550; 82553; 83880; 84484; 84703; 85025; 87486; 87581; 87633; 87798; 93005; 93041; 94640; 94664; 94760; 96374; 99285; J2919

== ENCOUNTER → 2024-06-18 | Outpatient (REF) | payer MEDICAID ==
[2024-06-18 18:26] LABS: BASO # 0.1 10^3/uL (0.0-0.2); BASO % 0.7 % (0.0-1.0); EOS # 0.3 10^3/uL (0.0-0.5); EOS % 3.7 % (0.0-3.0); HEMATOCRIT 47.7 % (36.0-47.0); HEMOGLOBIN 15.5 g/dl (12.0-15.5); LYMPH # 2.4 10^3/uL (1.5-5.0); LYMPH % 31.3 % (24.0-44.0); MEAN CORPUSCULAR HEMOGLOBIN 29.3 pg (27.0-33.0); MEAN CORPUSCULAR HGB CONC 32.5 g/dl (32.0-36.5); MEAN CORPUSCULAR VOLUME 90.2 fl (80.0-96.0); MONO # 0.5 10^3/uL (0.0-0.8); MONO % 6.3 % (2.0-8.0); NEUTROPHILS # 4.4 10^3/uL (1.5-8.5); NEUTROPHILS % 57.7 % (36.0-66.0); PLATELET COUNT, AUTOMATED 406 10^3/uL (150-450); RED BLOOD COUNT 5.29 10^6/uL (4.00-5.40); WHITE BLOOD COUNT 7.6 10^3/uL (4.0-10.0)
[2024-06-18 18:43] LABS: THYROID STIMULATING HORMONE 2.012 uIU/ML (0.55-4.78)
[2024-06-18 18:45] LABS: TOTAL 25(OH) VITAMIN D 10.8 NG/ML (20.0-100.0)
[2024-06-18 18:48] LABS: ALKALINE PHOSPHATASE 54 U/L (46-116); ALT/SGPT 18 U/L (7.0-40); AST/SGOT 12 U/L (<34); BLOOD UREA NITROGEN 8 MG/DL (9-23); CALCIUM LEVEL 9.7 MG/DL (8.5-10.1); CARBON DIOXIDE LEVEL 28 MMOL/L (20-31); CHLORIDE LEVEL 104 MMOL/L (98-107); CHOLESTEROL LEVEL 237 MG/DL (<200); CREATININE FOR GFR 0.63 MG/DL (0.55-1.30); GLOMERULAR FILTRATION RATE > 60.0 (>60); GLUCOSE, FASTING 74 MG/DL (60-100); POTASSIUM SERUM 4.2 MMOL/L (3.5-5.1); SODIUM LEVEL 139 MMOL/L (136-145); TOTAL PROTEIN 7.6 G/DL (5.7-8.2); TRIGLYCERIDES LEVEL 193 MG/DL (<150)
[2024-06-18 19:06] LABS: HEMOGLOBIN A1c 5.2 % (4.0-6.0)
[2024-06-18 23:40] LABS: CHOLESTEROL RISK RATIO 4.59 (<5); HDL CHOLESTEROL 51.6 MG/DL (>40); LDL CHOLESTEROL 146.8 MG/DL (<100); NON-HDL-C 185.4 MG/DL
== END ==
LOC: M LAB REF 16:42
PROVIDERS: ATTEND Physician Assistant
DX: R05.3 Chronic cough (principal); E55.9 Vitamin D deficiency, unspecified; E66.3 Overweight

== ENCOUNTER → 2024-06-24 | Outpatient (CLI) | payer MEDICAID | LOC: M LAB 14:03 → M RAD 14:03 | PROVIDERS: ATTEND Physician Assistant | DX: R05.3 Chronic cough (principal) ==

== ENCOUNTER → 2024-09-02 | Outpatient (CLI) | payer MEDICAID | LOC: M ONCR 13:18 | PROVIDERS: ATTEND General Practice | DX: Z08 Encounter for follow-up examination after completed treatment for malignant neoplasm (principal); Z85.3 Personal history of malignant neoplasm of breast; Z79.810 Long term (current) use of selective estrogen receptor modulators (SERMs); Z79.52 Long term (current) use of systemic steroids; Z79.84 Long term (current) use of oral hypoglycemic drugs; Z79.899 Other long term (current) drug therapy; Z92.21 Personal history of antineoplastic chemotherapy; Z98.890 Other specified postprocedural states; Z92.3 Personal history of irradiation; J30.89 Other allergic rhinitis; Z88.8 Allergy status to other drugs, medicaments and biological substances ==

== ENCOUNTER → 2024-09-13 | Outpatient (CLI) | payer MEDICAID | LOC: M CARPUL 14:56 | PROVIDERS: ATTEND Physician Assistant | DX: R05.3 Chronic cough (principal) ==

== ENCOUNTER → 2024-09-27 | Outpatient (REF) | payer MEDICAID ==
[2024-09-27 10:27] LABS: BASO # 0.1 10^3/uL (0.0-0.2); BASO % 0.8 % (0.0-1.0); EOS # 0.6 10^3/uL (0.0-0.5); EOS % 6.9 % (0.0-3.0); HEMOGLOBIN 15.3 g/dl (12.0-15.5); LYMPH # 2.6 10^3/uL (1.5-5.0); LYMPH % 32.3 % (24.0-44.0); MEAN CORPUSCULAR HEMOGLOBIN 29.4 pg (27.0-33.0); MEAN CORPUSCULAR HGB CONC 33.3 g/dl (32.0-36.5); MEAN CORPUSCULAR VOLUME 88.5 fl (80.0-96.0); MONO # 0.4 10^3/uL (0.0-0.8); MONO % 5.4 % (2.0-8.0); NEUTROPHILS # 4.4 10^3/uL (1.5-8.5); NEUTROPHILS % 54.5 % (36.0-66.0); PLATELET COUNT, AUTOMATED 354 10^3/uL (150-450)
[2024-09-27 11:05] LABS: C REACTIVE PROTEIN QUANTITATIV < 0.50 MG/DL (<1.0)
[2024-09-27 11:08] LABS: TOTAL 25(OH) VITAMIN D 26.4 NG/ML (20.0-100.0)
[2024-09-27 11:10] LABS: IMMUNOGLOBULIN E 138.1 IU/ML (0-378)
[2024-09-28 15:17] LABS: BERMUDA GRASS IGE 0.51 kU/L (<0.10); BIRCH IGE < 0.10 kU/L (<0.10); COMMON RAGWEED SHORT IGE 3.91 kU/L (<0.10); D001 IGE D PTERONYSSINUS 0.16 kU/L (<0.10); D002-IGE D FARINAE 0.13 kU/L (<0.10); E001-IGE CAT DANDER 4.07 kU/L (<0.10); ELM IGE < 0.10 kU/L (<0.10); I006 IGE COCKROACH < 0.10 kU/L (<0.10); IMMUNOGLOBULIN E FOR ALLERGENS 139 kU/L (<OR=114); M002 IGE CLADOSPORIUM HERBARU < 0.10 kU/L (<0.10); M003 IGE ASPERGILLUS FUMIGATU 0.18 kU/L (<0.10); M006 IGE ALTERNIA ALTERNATA 1.31 kU/L (<0.10); M1-PENICILLIUM NOTATUM < 0.10 kU/L (<0.10); MOUSE URINE IGE < 0.10 kU/L (<0.10); MUGWORT IGE 0.35 kU/L (<0.10); OAK IGE < 0.10 kU/L (<0.10); ROUGH PIGWEED IGE < 0.10 kU/L (<0.10); SHEEP SORREL IGE < 0.10 kU/L (<0.10); SYCAMORE IGE < 0.10 kU/L (<0.10); T001-IGE MAPLE BOX ELDER < 0.10 kU/L (<0.10); T006-IGE MOUNTAIN CEDAR < 0.10 kU/L (<0.10); T014 COTTONWOOD IGE < 0.10 kU/L (<0.10); TIMOTHY GRASS IGE 1.08 kU/L (<0.10); WALNUT TREE IGE 0.14 kU/L (<0.10); WHITE ASH IGE < 0.10 kU/L (<0.10); WHITE MULBERRY IGE < 0.10 kU/L (<0.10)
[2024-09-30 20:13] LABS: E094-IgE Fel d 1 2.18 kU/L (<0.10); E101-IgE Can f 1 2.09 kU/L (<0.10); E102-IgE Can f 2 0.54 kU/L (<0.10); E226 IgE Can f 5 4.15 kU/L (<0.10); E228-IgE Fel d 4 0.28 kU/L (<0.10); E230 IGE CAN F 6 2.81 kU/L (<0.10); E231 IGE FEL D 7 0.74 kU/L (<0.10)
[2024-10-01 18:12] LABS: ASPERGILLUS FLAVUS ABY Negative (Negative); ASPERGILLUS FUMIGATUS ABY Negative (Negative); ASPERGILLUS NIGER ABY Negative (Negative)
== END ==
LOC: M LAB REF 10:11
PROVIDERS: ATTEND Internal Medicine Critical Care Medicine
DX: J45.40 Moderate persistent asthma, uncomplicated (principal)

== ENCOUNTER → 2024-10-05 | Outpatient (CLI) | payer MEDICAID ==
[~2024-10-05] MED LIST changes: +ISOVUE-370 76% 100ML VIAL As Ordered ONE
== END ==
LOC: M RAD 14:38
PROVIDERS: ATTEND Nurse Practitioner Women's Health
DX: M25.50 Pain in unspecified joint (principal); Z85.3 Personal history of malignant neoplasm of breast; R91.8 Other nonspecific abnormal finding of lung field; M48.061 Spinal stenosis, lumbar region without neurogenic claudication; M51.26 Other intervertebral disc displacement, lumbar region; K76.9 Liver disease, unspecified
CPT/HCPCS: 71260; 74160; Q9967

== ENCOUNTER → 2024-10-05 | Outpatient (CLI) | payer MEDICAID ==
[~2024-10-05] MED LIST changes: -ISOVUE-370 76% 100ML VIAL As Ordered ONE; +METHACHOLINE KIT (6 VIAL.NEB PREMIX) INH ONE
== END ==
LOC: M CARPUL 09:38
PROVIDERS: ATTEND Internal Medicine Critical Care Medicine
DX: J45.40 Moderate persistent asthma, uncomplicated (principal)
CPT/HCPCS: 94070; 95070; J7674

== ENCOUNTER → 2025-04-13 | Outpatient (CLI) | payer MEDICAID ==
[~2025-04-13] MED LIST changes: -METHACHOLINE KIT (6 VIAL.NEB PREMIX) INH ONE
== END ==
LOC: M WHC 15:38
PROVIDERS: ATTEND Physician Assistant
DX: Z12.31 Encounter for screening mammogram for malignant neoplasm of breast (principal); Z85.3 Personal history of malignant neoplasm of breast; R92.333 Mammographic heterogeneous density, bilateral breasts

== ENCOUNTER → 2025-07-05 | Outpatient (REF) | payer MEDICAID ==
[~2025-07-05] MED LIST changes: -IBUP-1022 PO; +IBUP600T42 PO; +MONT10TA97; +SYMB16INH
== END ==
LOC: M LAB REF 12:19
PROVIDERS: ATTEND Physician Assistant Medical
DX: B34.9 Viral infection, unspecified (principal)

== ENCOUNTER → 2025-07-18 | Outpatient (CLI) | payer MEDICAID | LOC: M RAD 08:49 | DX: C50.911 Malignant neoplasm of unspecified site of right female breast (principal) | CPT/HCPCS: 78306; A9503 ==

== ENCOUNTER → 2025-08-01 | Outpatient (REF) | payer MEDICAID ==
[2025-08-01 17:06] LABS: BASO # 0.1 10^3/uL (0.0-0.2); BASO % 0.7 % (0.0-1.0); EOS # 0.4 10^3/uL (0.0-0.5); EOS % 4.4 % (0.0-3.0); LYMPH # 3.6 10^3/uL (1.5-5.0); LYMPH % 36.3 % (24.0-44.0); MONO # 0.7 10^3/uL (0.0-0.8); MONO % 6.7 % (2.0-8.0); NEUTROPHILS # 5.2 10^3/uL (1.5-8.5); NEUTROPHILS % 51.6 % (36.0-66.0); PLATELET COUNT, AUTOMATED 399 10^3/uL (150-450)
[2025-08-01 17:10] LABS: ALT/SGPT 24 U/L (7.0-40); AST/SGOT 20 U/L (<34); CALCIUM LEVEL 9.4 MG/DL (8.5-10.1); CARBON DIOXIDE LEVEL 29 MMOL/L (20-31); CHLORIDE LEVEL 100 MMOL/L (98-107); CHOLESTEROL LEVEL 229 MG/DL (<200); CHOLESTEROL RISK RATIO 4.11 (<5); CREATININE FOR GFR 0.75 MG/DL (0.55-1.30); GLOMERULAR FILTRATION RATE > 90.0 (>60); LDL CHOLESTEROL 144.6 MG/DL (<100); NON-HDL-C 173.4 MG/DL; POTASSIUM SERUM 4.1 MMOL/L (3.5-5.1); SODIUM LEVEL 137 MMOL/L (136-145); TRIGLYCERIDES LEVEL 144 MG/DL (<150)
[2025-08-01 17:12] LABS: TOTAL 25(OH) VITAMIN D 40.6 NG/ML (20.0-100.0)
[2025-08-01 17:17] LABS: ESTIMATED AVERAGE GLUCOSE 108.0 MG/DL (60-110)
== END ==
LOC: M LAB REF 16:23
PROVIDERS: ATTEND Physician Assistant
DX: E55.9 Vitamin D deficiency, unspecified (principal); E66.9 Obesity, unspecified

== ENCOUNTER → 2025-09-02 | Outpatient (CLI) | payer MEDICAID | LOC: M ONCR 08:29 | PROVIDERS: ATTEND General Practice | DX: Z08 Encounter for follow-up examination after completed treatment for malignant neoplasm (principal); Z85.3 Personal history of malignant neoplasm of breast; Z92.21 Personal history of antineoplastic chemotherapy; Z92.3 Personal history of irradiation; Z88.8 Allergy status to other drugs, medicaments and biological substances; J30.89 Other allergic rhinitis; Z79.810 Long term (current) use of selective estrogen receptor modulators (SERMs); Z79.899 Other long term (current) drug therapy ==